=== PATIENT | female | born 1980 | race Two or more races ===

== ENCOUNTER 2016-09-30 05:40 | Inpatient (IN) | payer OTHER ==
[2016-09-30] MEDS ORDERED: SODIUM CHLORIDE 1,000 ML IV STA (06:22)
[2016-09-30] MEDS ORDERED: SODIUM CHLORIDE 0.9% 1000 ML INFUS.BAG IV PRN (06:22)
[2016-09-30] MEDS ORDERED: IBUPROFEN 100 MG/5 ML UNIT DOSE CUPS GT ONE (06:25)
[2016-09-30] MEDS ORDERED: ALBUTEROL SO4 2.5/IPRATROPIUM 0.5 INH SOL 3 ML VIAL.NEB. NEB ONE (06:26)
--- NOTE | 2016-09-30 06:27 | PDOC ---
History of Present Illness - General Chief Complaint: Respiratory Stated Complaint: TACHYCARDIA Time Seen by Provider: 09/30/16 06:18 History Source: Patient - History of Present Illness Initial Comments: 09/30/16 06:22 35 yeAR OLD FEMALE from [facility] c/o fever and tachycardia. pmhx MRCP, tracheostomy, seizures, Chronic lung disease, Past History - Past Medical History Allergies/Adverse Reactions: Allergies Allergy/AdvReac Type Severity Reaction Status Date / Time No Known Allergies Allergy Verified 09/30/16 05:53 Home Medications: Ambulatory Orders Acetaminophen Oral Solution [Tylenol 160mg/5mL Oral Solution -] 650 mg GT Q4H PRN 05/11/13 Albuterol 0.083% Nebulizer Renu [Ventolin 0.083% Nebulizer Soln -] 1 neb NEB Q6H 05/11/13 Budesonide [Pulmicort 0.5 mg Nebulizer -] 1 neb IH BID 05/11/13 Diazepam [Valium] 2 mg GT BID 05/11/13 Heparin Sodium,Porcine/Pf [Heparin Sod 5,000 Unit/ 0.5 ml] 5,000 unit SQ TID 08/19 Insulin (LOG) Aspart [NovoLOG -] 0 units SQ TID PRN 05/11/13 Lamotrigine [Lamictal] 25 mg GT BID 05/11/13 Polyethylene Glycol 3350 [Miralax 255 gm Btl -] 17 gm GT DAILY 05/11/13 Potassium Chloride Oral Soln [KCl Oral Solution -] 20 meq GT DAILY 05/11/13 Ranitidine Oral Solution [Zantac Oral Solution -] 150 mg GT BID 05/11/13 Senna Oral Solution - [Senokot Oral Solution -] 8.8 mg GT HS 05/11/13 Valproate Sodium Liquid [Depakene Oral Solution -] 500 mg GT HS 05/11/13 Valproate Sodium [Depakene -] 250 mg GT DAILY 05/11/13 Insulin (Levemir) [Levemir Flexpen -] 28 units SQ HS 01/08/14 Multivitamins [Multivit ([facility] Formulary)] 5 ml GT DAILY 01/08/14 Nut.tx.gluc.intoler,Lac-Fr,Soy [Glucerna 1 Matteo] 640 ml GT DAILY 01/08/14 Insulin (Levemir) [Levemir Vial] 40 units SQ ACBK ml 03/04/16 Levofloxacin [Levaquin -] 500 mg PEG DAILY #4 tablet 03/04/16 Levothyroxine [Synthroid -] 37.5 mcg GT DAILY@0700 tablet 03/04/16 Anemia: Yes Asthma: No Cancer: No Cardiac Disorders: No CVA: (hx mental retardation, muscle contractions) COPD: Yes (CHRONIC AIRWAY FAILURE, OBSTRUCTIVE HYDROCEPHALUS) CHF: No Dementia: No Diabetes: Yes GI Disorders: No Disorders: No HTN: No Hypercholesterolemia: No Liver Disease: No Suicide Attempt (Hx): No Seizures: Yes Thyroid Disease: No - Surgical History Abdominal Surgery: Yes Appendectomy: Yes (peg tube) Cardiac Surgery: No Cholecystectomy: No Lung Surgery: No Neurologic Surgery: No Orthopedic Surgery: Yes (left femur fracture repair,ventilator) - Psycho/Social/Smoking Cessation Hx Anxiety: No Suicidal Ideation: No Smoking Status: No Smoking History: Unknown if ever smoked Have you smoked in the past 12 months: No Number of Cigarettes Smoked Daily: 0 Information on smoking cessation initiated: No Hx Alcohol Use: No Drug/Substance Use Hx: No Substance Use Type: None Hx Substance Use Treatment: No Review of Systems - Review of Systems Able to Perform ROS?: Yes Is the patient limited Citizen Of [place] proficient: No Constitutional: Yes: Fever *Physical Exam - Vital Signs Last Vital Signs Temp Pulse Resp BP Pulse Ox 140 H 17 148/93 100 09/30/16 05:53 09/30/16 05:53 09/30/16 05:53 09/30/16 05:53 - Physical Exam General Appearance: Yes: Other Respiratory/Chest: positive: Wheezing (end expiratory wheezing, trach in place) . negative: Accessory Muscle Use Cardiovascular: positive: Regular Rate, Tachycardia Gastrointestinal/Abdominal: positive: Decreased BS, Distended Extremity: positive: Normal Capillary Refill, Normal Inspection, Normal Range of Motion Integumentary: positive: Normal Color, Dry, Warm Neurologic: positive: Alert, Respond to painful stimul ED Treatment Course - LABORATORY CBC & Chemistry Diagram: 09/30/16 06:37 09/30/16 06:37 Progress Note - Progress Note Progress Note: A: r/o Sepsis *DC/Admit/Observation/Transfer Diagnosis at time of Disposition: Sepsis Qualifiers: Sepsis type: sepsis due to unspecified organism Qualified Code(s): A41.9 - Sepsis, unspecified organism - Referrals Referrals: Dillan Celaya MD [Primary Care Provider] -
[2016-09-30 06:42] LABS: BASOPHIL 0.4 % (0-2.0); EOSINOPHIL 0.1 % (0-4.5); MCHC 29.6 g/dl (32.0-36.0); MEAN PLT VOLUME 8.2 fl (7.5-11.1); NEUTROPHILS 86.3 % (42.8-82.8); PLATELET COUNT 350 K/MM3 (134-434); RDW 22.9 % (11.6-15.6); WHITE BLOOD COUNT 14.7 K/mm3 (4.0-10.0)
[2016-09-30] MEDS ORDERED: IBUPROFEN 100 MG/5 ML UNIT DOSE CUPS ONE (06:45)
[2016-09-30 06:57] LABS: INR 1.41 (0.82-1.09); PROTHROMBIN TIME (PATIENT) 15.6 SEC (9.98-11.88)
[2016-09-30 07:00] LABS: ACTIVATED PTT 37.6 SECONDS (26.9-34.4)
[2016-09-30 07:06] LABS: ALBUMIN 2.5 g/dl (3.4-5.0); ANION GAP 11 (8-16); BILIRUBIN,TOTAL 5.1 mg/dL (0.2-1.0); CALCIUM 9.4 mg/dL (8.5-10.1); CO2 29 mmol/L (21-32); COCKROFT - GAULT 114.5885; CREATININE 0.5 mg/dL (0.55-1.02); SGOT/AST 152 U/L (15-37); SGPT/ALT 51 U/L (12-78); TOT PROT 8.1 g/dl (6.4-8.2)
[2016-09-30 07:08] LABS: ALK PHOS 577 U/L (45-117)
[2016-09-30 07:21] LABS: GLUCOSE,RANDOM 410 mg/dL (74-106)
[2016-09-30 07:33] LABS: URINE APPEARANCE CLEAR; URINE BLOOD NEGATIVE (NEGATIVE); URINE COLOR AMBER; URINE GLUCOSE (UA) 3+ (NEGATIVE); URINE KETONE TRACE (NEGATIVE); URINE LEUK ESTERASE NEGATIVE (NEGATIVE); URINE NITRITE NEGATIVE (NEGATIVE); URINE PROTEIN NEGATIVE (NEGATIVE); URINE UROBILINOGEN 4.0 E.U/dl E.U./dl (0.2-1.0)
[2016-09-30] MEDS ORDERED: INSULIN REGULAR HUMAN 100 UNITS/ML *VIAL IVPUSH ONE (07:37)
[2016-09-30] MEDS ORDERED: VANCOMYCIN 1,000 MG in DEXTROSE 5%-WATER - 250 ML IVPB ONE (07:37)
[2016-09-30] MEDS ORDERED: PIPERACILLIN/TAZOB 3.375 GM/50 ML PRE-DOCKED IVPB ONE ×2 (07:39→19:00)
--- NOTE | 2016-09-30 07:49 | PDOC ---
*Physical Exam - Vital Signs Last Vital Signs Temp Pulse Resp BP Pulse Ox 140 H 17 148/93 100 09/30/16 06:02 09/30/16 05:53 09/30/16 05:53 09/30/16 06:02 - Physical Exam Comments: 09/30/16 07:50 Exam limited 2/2 pt's medical condition General Appearance: Yes: Appropriately Dressed. No: Apparent Distress Gastrointestinal/Abdominal: positive: Soft, Guarding, Other (PEG in place to LUQ ). negative: Distended, Mass Integumentary: positive: Dry, Warm ED Treatment Course - LABORATORY CBC & Chemistry Diagram: 09/30/16 06:37 09/30/16 06:37 - ADDITIONAL ORDERS Additional order review: Laboratory Results 09/30/16 09/30/16 09/30/16 06:37 06:37 06:29 INR 1.41 H PTT (Actin FS) 37.6 H Sodium 133 L Potassium 4.3 Chloride 93 L Carbon Dioxide 29 Anion Gap 11 BUN 17 D Creatinine 0.5 L Creat Clearance w eGFR > 60 Random Glucose 410 H* Lactic Acid 1.2 Calcium 9.4 Total Bilirubin 5.1 H D AST 152 H D ALT 51 D Alkaline Phosphatase 577 H D Creatine Kinase 11 L Total Protein 8.1 D Albumin 2.5 L 09/30/16 06:37 RBC 3.51 L MCV 88.0 MCHC 29.6 L RDW 22.9 H D MPV 8.2 Neutrophils % 86.3 H D Lymphocytes % 3.9 L D Monocytes % 9.3 Eosinophils % 0.1 D Basophils % 0.4 D - Medications Given in the ED: ED Medications Discontinued Medications Generic Name Dose Route Start Last Admin Trade Name Saiq PRN Reason Stop Dose Admin Albuterol/Ipratropium 1 amp 09/30/16 06:26 09/30/16 07:22 Duoneb - NEB 09/30/16 06:27 Not Given ONCE ONE Sodium Chloride 1,000 mls @ 1,000 mls/hr 09/30/16 06:22 09/30/16 06:50 Normal Saline - IV 09/30/16 07:21 1,000 mls/hr ASDIR STA Administration Ibuprofen 450 mg 09/30/16 06:25 09/30/16 06:50 Motrin Oral Suspension - GT 09/30/16 06:26 450 mg ONCE ONE Administration Medical Decision Making - Medical Decision Making 09/30/16 07:44 Received S.O at 7am this am Pt is a 35 yo F, resident at [facility], profound MR, CP, seizures, chronic resp failure, trach dependent, PEG, IDDM, sepsis, p/w fever of unknown origin. Has low grade temp and tachycardia in ED. Early in w/u w/ labs pending. Labs and broad spectrum abx in progress. To be admitted 09/30/16 07:50 Leukocytosis of 14 w/ normal lactate. Hyperglycemia of >400. IVF and insulin in progress. HR currently 130 w/ sinus tach on EKG. Ua and CXR in progress. Will contact PMD and admit 09/30/[address] Rudd as per d/w Dr Celaya *DC/Admit/Observation/Transfer Diagnosis at time of Disposition: Hyperglycemia Sepsis Qualifiers: Sepsis type: sepsis due to unspecified organism Qualified Code(s): A41.9 - Sepsis, unspecified organism - Discharge Dispostion Condition at time of disposition: Fair Admit: Yes - Referrals Referrals: Dillan Celaya MD [Primary Care Provider] - - Patient Instructions - Post Discharge Activity
[2016-09-30] MEDS ORDERED: INSULIN REGULAR HUMAN 100 UNITS/ML *VIAL ONE (07:58)
[2016-09-30 08:10] LABS: TROPONIN I < 0.03 ng/ml (0.00-0.05)
[2016-09-30] MEDS ORDERED: PIPERACILLIN/TAZOB 3.375 GM 50 ML IVPB ONE (08:10)
--- NOTE | 2016-09-30 09:15 | EKG ---
Test Reason : Blood Pressure : / mmHG Vent. Rate : 140 BPM Atrial Rate : 140 BPM P-R Int : 126 ms QRS Dur : 080 ms QT Int : 284 ms P-R-T Axes : 031 057 022 degrees QTc Int : 433 ms SINUS TACHYCARDIA NONSPECIFIC T WAVE ABNORMALITY ABNORMAL ECG WHEN COMPARED WITH ECG OF 25-FEB-2016 13:13, NONSPECIFIC T WAVE ABNORMALITY, IMPROVED IN LATERAL LEADS Confirmed by PASTOR FERRARA MD ([id number]) on 09/30/2016 9:14:58 AM Referred By: Confirmed By:PASTOR FERRARA MD
--- NOTE | 2016-09-30 10:41 | HP ---
Admitting History and Physical - Primary Care Physician PCP: Max Rudd - Admission Chief Complaint: Fever of unknown origin History of Present Illness: Ms. Carrillo is ventilator dependent 35 yo female who is a resident of [facility] . She came in to the ER for fever that started 1 day ago. 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 No: Multiple Sclerosis Pulmonary: Yes: O2 Dependent, Previously Intubated, Other (respiratory failure) Gastrointestinal: Yes: Constipation, Other (H/O PSEUDOMEGA-COLON INTERMITTANTLY REQUIRING RECTAL TUBE) Heme/Onc: Yes: Anemia (CHRONIC) Psych: Yes: Other (MENTAL RETARDATION) Endocrine: Yes: Diabetes Mellitus - Past Surgical History Past Surgical History: Yes: AICD - Smoking History Smoking history: Unknown if ever smoked Have you smoked in the past 12 months: No Aproximately how many cigarettes per day: 0 - Alcohol/Substance Use Hx Alcohol Use: No - Social History Usual Living Arrangement: Yes: Half-Way Home Medications - Allergies Allergies/Adverse Reactions: Allergies Allergy/AdvReac Type Severity Reaction Status Date / Time No Known Allergies Allergy Verified 09/30/16 05:53 - Home Medications Home Medications: Ambulatory Orders Acetaminophen [Tylenol] 650 mg GT Q6H PRN 09/30/16 Ascorbate Calcium [Vitamin C] 500 mg GT DAILY 09/30/16 Budesonide/Formeterol Fumarate [SYMBICORT 160/4.5mcg -] 1 inh PO BID 09/30/16 Diazepam 2 mg GT BID 09/30/16 Famotidine 20 mg GT HS 09/30/16 Heparin - 5,000 unit SQ BID 09/30/16 Hydrocortisone 1% Cream [Hytone 1% Cream -] 1 applic TP BID 09/30/16 Insulin (Levemir) [Levemir Flexpen -] 36 units SQ HS 09/30/16 Insulin (Levemir) [Levemir Vial] 40 unit SQ AM 09/30/16 Insulin Lispro [Humalog] 0 unit SQ ASDIR 09/30/16 Ipratropium/Albuterol Sulfate [Iprat-Albut 0.5-3(2.5) mg/3 ml] 3 ml IH QID 09/30 Lamotrigine 25 mg GT BID 09/30/16 Levothyroxine [Synthroid -] 12.5 mcg PO DAILY 09/30/16 Levothyroxine [Synthroid -] 25 mcg PO DAILY 09/30/16 Petrolatum,White/Lanolin [Vitamin A & D Ointment] 454 gm TP QID 09/30/16 Polyethylene Glycol 3350 [Gavilax] 17 gm GT DAILY 09/30/16 Potassium Chloride [Potassium Chloride Oral Liquid] 20 meq GT DAILY 09/30/16 Valproic Acid (As Sodium Salt) [Valproic Acid] 5 ml GT AM 09/30/16 Valproic Acid (As Sodium Salt) [Valproic Acid] 250 mg GT HS 09/30/16 Family Disease History - Family Disease History Family History: Unable to Obtain Review of Systems Findings/Remarks: Fever - Review of Systems Constitutional: reports: Fever Physical Examination Vital Signs: Vital Signs Temperature Pulse Rate 140 H 09/30/16 06:02 Respiratory Rate 15 09/30/16 08:43 Blood Pressure 148/93 09/30/16 05:53 O2 Sat by Pulse Oximetry (%) 100 09/30/16 06:02 Constitutional: Yes: Mild Distress Cardiovascular: Yes: Tachycardia Respiratory: Yes: Tachypnea Gastrointestinal: Yes: Normal Bowel Sounds Extremities: Yes: WNL Integumentary: Yes: WNL, Other (Tracheotomy and PEG) Wound/Incision: Yes: Clean/Dry Problem List - Problems (1) Hyperglycemia Code(s): R73.9 - HYPERGLYCEMIA, UNSPECIFIED (2) Sepsis Assessment/Plan: Pending urine and blood cultures, normal LA. Code(s): A41.9 - SEPSIS, UNSPECIFIED ORGANISM Qualifiers: Sepsis type: sepsis due to unspecified organism Qualified Code(s): A41.9 - Sepsis, unspecified organism (3) Cerebral palsy Code(s): G80.9 - CEREBRAL PALSY, UNSPECIFIED Qualifiers: Cerebral palsy type: unspecified type Qualified Code(s): G80.9 - Cerebral palsy, unspecified (4) Chronic respiratory failure Code(s): J96.10 - CHRONIC RESPIRATORY FAILURE, UNSP W HYPOXIA OR HYPERCAPNIA (5) Fever Assessment/Plan: Urine and blood cultures Tylenol for fever over 100.0 ID consult Code(s): R50.9 - FEVER, UNSPECIFIED Assessment/Plan Admit to Med Surg Urine and Blood cultures IV abx Hydration Pending CXR ID consult
[2016-09-30] MEDS ORDERED: ACETAMINOPHEN 1000 MG/100 ML VIAL (NON FORMULARY) IVPB ONE (10:45)
[2016-09-30] MEDS ORDERED: VANCOMYCIN 1 GRAM (PRE-DOCKED) 250 ML IVPB ONE (11:00)
[2016-09-30 11:59] LABS: ANISOCYTOSIS 2+; HYPOCHROMIA 1+; MICROCYTOSIS 2+; TARGET CELLS FEW
[2016-09-30] MEDS: SODIUM CHLORIDE 1,000 ML IV SCH (15:47)
[2016-09-30 16:43] VITALS: BMI 51.2
[2016-09-30] MEDS ORDERED: ACETAMINOPHEN 650 MG/20.3 ML ORAL SOLUTION (CUPS) GT PRN (17:55)
[2016-09-30] MEDS ORDERED: diazePAM 2 MG TABLET PO SCH (22:00)
[2016-09-30] MEDS ORDERED: HEPARIN NA (PORCINE) 5,000 UNITS/ML 1ML VIAL SQ SCH (22:00)
[2016-09-30] MEDS ORDERED: INSULIN DETEMIR 100 UNITS/ML MDV SQ SCH (22:00)
[2016-09-30] MEDS: VALPROATE SODIUM 250 MG/5 ML UNIT DOSE CUP GT SCH (22:33)
[2016-09-30] MEDS: HEPARIN NA (PORCINE) 5,000 UNITS/ML 1ML VIAL SQ SCH (22:33)
[2016-09-30] MEDS: lamoTRIgine 25 MG TABLET NR SCH (22:33)
[2016-09-30] MEDS: diazePAM 2 MG TABLET GT SCH (22:33)
[2016-09-30] MEDS: RANITIDINE HCL 150 MG/10 ML UNIT-DOSE CUP GT SCH (22:33)
[2016-09-30] MEDS: BUDESONIDE/FORMETEROL FUMARATE 160/4.5 mcg INHALER IH SCH (22:34)
[2016-09-30] MEDS: VITAMINS A AND D TOPICAL OINTMENT 60 GM TUBE TP SCH (22:35)
[2016-09-30] MEDS: ALBUTEROL SO4 2.5/IPRATROPIUM 0.5 INH SOL 3 ML VIAL.NEB. NEB SCH (23:15)
[2016-09-30] MEDS ORDERED: VANCOMYCIN 1 GRAM (PRE-DOCKED) 250 ML IVPB SCH (23:15)
[2016-10-01] MEDS ORDERED: PIPERACILLIN/TAZOB 3.375 GM 50 ML IVPB SCH (02:00)
[2016-10-01] MEDS: INSULIN SLIDING SCALE (NOVOLOG) 1 VIAL SQ SCH ×4 (06:02→22:36)
[2016-10-01] MEDS: VALPROATE SODIUM 250 MG/5 ML UNIT DOSE CUP GT SCH ×2 (06:02→22:33)
[2016-10-01] MEDS: ALBUTEROL SO4 2.5/IPRATROPIUM 0.5 INH SOL 3 ML VIAL.NEB. NEB SCH ×4 (06:19→23:11)
[2016-10-01 07:46] LABS: ARTERIAL BLOOD GAS BASE EXCESS 1.4 meq/l (-2-2); ARTERIAL BLOOD GAS HCO3 25.2 meq/L (22-26); ARTERIAL BLOOD GAS pH 7.44 (7.35-7.45)
[2016-10-01 07:47] LABS: ALLENS TEST POSITIVE; ART PUNCT SITE RIGHT RADIAL; LPM/O2% 35%; PT. ON O2? YES; TYPE OF O2 MECH VENT
[2016-10-01 07:48] LABS: MECH. VENT. Y; VENT RATE 14; VT/PRESS 350
--- NOTE | 2016-10-01 08:29 | PN ---
Progress Note, Physician Chief Complaint: ID Full note dictaed Asked to see for management of Sepsis - Current Medication List Current Medications: Active Medications Acetaminophen (Tylenol Oral Solution -) 650 mg GT Q6H PRN PRN Reason: FEVER OR PAIN Albuterol/Ipratropium (Duoneb -) 1 amp NEB QIDR [facility] Last Admin: 10/01/16 06:19 Dose: 1 amp Ascorbic Acid (Vitamin C Oral Solution -) 500 mg GT DAILY [facility] Budesonide/Formoterol Fumarate (Symbicort 160/4.5mcg -) 2 puff IH BID [facility] Last Admin: 09/30/16 22:34 Dose: Not Given Diazepam (Valium -) 2 mg GT BID [facility] Last Admin: 09/30/16 22:33 Dose: 2 mg Heparin Sodium (Porcine) (Heparin -) 5,000 unit SQ BID [facility] Last Admin: 09/30/16 22:33 Dose: 5,000 unit Sodium Chloride (Normal Saline -) 1,000 mls @ 75 mls/hr IV ASDIR [facility] Last Admin: 09/30/16 15:47 Dose: 75 mls/hr Vancomycin HCl (Vancomycin (Pre-Docked)) 250 mls @ 166.667 mls/hr IVPB Q12H [facility] PRN Reason: Protocol Last Admin: 10/01/16 00:00 Dose: 166.667 mls/hr Piperacillin Sod/Tazobactam Sod (Zosyn 3.375gm Ivpb (Pre-Docked)) 50 mls @ 100 mls/hr IVPB Q8H-IV [facility] PRN Reason: Protocol Last Admin: 10/01/16 01:23 Dose: 100 mls/hr Insulin Aspart (Novolog Vial Sliding Scale -) 1 vial SQ TIDAC [facility] PRN Reason: Protocol Last Admin: 10/01/16 06:02 Dose: 5 units Insulin Detemir (Levemir Vial) 36 units SQ HS [facility] Last Admin: 09/30/16 22:34 Dose: 36 units Lamotrigine (Lamictal -) 25 mg NR BID [facility] Last Admin: 09/30/16 22:33 Dose: 25 mg Levothyroxine Sodium (Synthroid -) 25 mcg GT DAILY [facility] Polyethylene Glycol (Miralax (For Daily Use) -) 17 gm GT DAILY [facility] Potassium Chloride (Potassium Chloride Oral Liquid) 20 meq GT DAILY [facility] Ranitidine HCl (Zantac Oral Solution -) 150 mg GT HS [facility] Last Admin: 09/30/16 22:33 Dose: 150 mg Sodium Chloride (Normal Saline -) 100 ml IV Q20M PRN PRN Reason: MAP<65mm Hg OR SBP <90 Valproate Sodium (Depakene -) 250 mg GT HS [facility] Last Admin: 09/30/16 22:33 Dose: 250 mg Valproate Sodium (Depakene -) 250 mg GT AM [facility] Last Admin: 10/01/16 06:02 Dose: 250 mg Vitamin A/Vitamin D (Vitamin A & D Top Oint -) 1 applic TP QID [facility] Last Admin: 09/30/16 22:35 Dose: 1 applic - Objective Vital Signs: Vital Signs Temperature 98.3 F 10/01/16 05:46 Pulse Rate 104 H 10/01/16 05:46 Respiratory Rate 20 10/01/16 06:33 Blood Pressure 108/63 10/01/16 05:46 O2 Sat by Pulse Oximetry (%) 100 10/01/16 00:43 Neck: Yes: Other (Trach) Cardiovascular: Yes: Tachycardia, S1, S2. No: Murmur Respiratory: Yes: WNL, Regular, CTA Bilaterally Gastrointestinal: Yes: Soft, Distention, Other (PEG) Extremities: Yes: Other (Contracted) Integumentary: Yes: Jaundice Labs: INR, PTT INR 1.41 (0.82-1.09) H 09/30/16 06:37 Problem List - Problems (1) Sepsis Code(s): A41.9 - SEPSIS, UNSPECIFIED ORGANISM Qualifiers: Sepsis type: sepsis due to unspecified organism Qualified Code(s): A41.9 - Sepsis, unspecified organism (2) Diabetes Code(s): E11.9 - TYPE 2 DIABETES MELLITUS WITHOUT COMPLICATIONS (3) Cholangitis Code(s): K83.0 - CHOLANGITIS Assessment/Plan Microbiology 09/30/16 06:37 Blood - Peripheral Venous Blood Culture - Preliminary NO GROWTH OBTAINED AFTER 24 HOURS, INCUBATION TO CONTINUE FOR 4 DAYS. 09/30/16 06:37 Blood - Peripheral Venous Blood Culture - Preliminary Lactose Fermenting Neg Bacilli Laboratory Tests 09/30/16 09/30/16 09/30/16 06:37 06:37 06:37 WBC 14.7 H D Hgb 9.1 L Hct 30.9 L Plt Count 350 D Neutrophils % 86.3 H D Lymphocytes % 3.9 L D INR 1.41 H ABG pH ABG pCO2 at Pt Temp ABG pO2 at Pt Temp Oxygen Flow Rate BUN 17 D Random Glucose 410 H* Total Bilirubin 5.1 H D AST 152 H D ALT 51 D Alkaline Phosphatase 577 H D Ur Leukocyte Esterase 09/30/16 10/01/16 07:23 07:25 WBC Hgb Hct Plt Count Neutrophils % Lymphocytes % INR ABG pH 7.44 ABG pCO2 at Pt Temp 37.9 ABG pO2 at Pt Temp 136.0 H Oxygen Flow Rate 35% BUN Random Glucose Total Bilirubin AST ALT Alkaline Phosphatase Ur Leukocyte Esterase Negative Assessment Sepsis syndrome from biliary tract Cholangitis with obstruction Gram negative bacteremia Fatty liver Plan Continue Zosyn as ordered 3.375gr q 6 Sonogram of GB liver to start GI evaluation Stop Jed Mak MD
[2016-10-01] MEDS ORDERED: PT OWN MED DRAWER 7, Y5N ONE (09:55)
[2016-10-01] MEDS: LEVOTHYROXINE NA 25 MCG TABLET (FP) GT SCH (09:58)
[2016-10-01] MEDS: BUDESONIDE/FORMETEROL FUMARATE 160/4.5 mcg INHALER IH SCH ×2 (09:58→22:31)
[2016-10-01] MEDS: POLYETHYLENE GLYCOL 3350 119 GM BTL GT SCH (09:58)
[2016-10-01] MEDS: diazePAM 2 MG TABLET GT SCH ×2 (09:58→22:31)
[2016-10-01] MEDS: POTASSIUM CHLORIDE ORAL LIQUID 20 MEQ/15 ML GT SCH (09:58)
[2016-10-01] MEDS: PIPERACILLIN/TAZOB 3.375 GM 50 ML IVPB SCH ×3 (09:59→22:30)
[2016-10-01] MEDS: HEPARIN NA (PORCINE) 5,000 UNITS/ML 1ML VIAL SQ SCH ×2 (09:59→22:33)
[2016-10-01] MEDS: VITAMINS A AND D TOPICAL OINTMENT 60 GM TUBE TP SCH ×3 (10:00→22:37)
[2016-10-01] MEDS: ASCORBIC ACID 500 MG/5 ML UNIT DOSE CUP GT SCH (10:01)
[2016-10-01] MEDS: SODIUM CHLORIDE 1,000 ML IV SCH (10:02)
--- NOTE | 2016-10-01 10:51 | CONS ---
DATE OF CONSULTATION: DATE OF DICTATION: 10/01/2016 HISTORY OF PRESENT ILLNESS: This is a 35-year-old profoundly mentally impaired patient from functional quadriplegia and cerebral palsy admitted from the nursing facility for evaluation of sepsis and fever which started the day prior to admission. She is chronically vented through a tracheostomy and has a history of diabetes mellitus. After a discussion with the nursing staff last night, I recommended that she be empirically treated with vancomycin and Zosyn pending formal consultation. This morning, her blood cultures are positive for gram-negative rods. The patient can offer no history. CURRENT MEDICATIONS: Include diazepam, insulin, lamotrigine, , valproic acid. ALLERGIES: None known. SOCIAL HISTORY: Resident of a long-term care facility. Obviously, no history of smoking or alcohol, substance abuse. FAMILY HISTORY: Unable to obtain. REVIEW OF SYSTEMS:Respiratory: Tachypnea with chronic ventilator dependency. Tracheostomy. Cardiac: No history of congenital heart disease, heart murmur, syncope, palpitations. Gastrointestinal: PEG feeding tube. No abdominal pain obvious. No vomiting, diarrhea, melena, blood per rectum, hematemesis. Genitourinary: Incontinent of urine. No gross hematuria noted. PHYSICAL EXAMINATION:Vital Signs: On admission, the pulse is 140, respiratory rate 15, blood pressure 148/93, O2 saturation 100%. Neck: With tracheostomy. Lungs: Bilateral rhonchi. Heart: S1, S2. Tachycardic. No obvious murmur. Abdomen: Soft, nontender, without hepatosplenomegaly. The abdomen was distended. No obvious tenderness. PEG feeding tube in place. No rebound. Extremities: No clubbing, cyanosis, or edema. LABORATORY DATA: The white count was 15,000, hemoglobin 9.1, platelets of 350, 86% polys, 4 lymphs, 9 monocytes. INR 1.41. AB.44, 40, PO2 of 136, 35% oxygen flow. The BUN was 17, creatinine 0.5, glucose 410, bilirubin 5.1, AST 151, ALT 51, alkaline phosphatase 577. Urinalysis was negative for leukocyte esterase. Chest x-ray was reviewed, shows some possible vascular congestion but no discrete infiltrate. Additionally, bilateral ventriculoperitoneal shunt seen and thoracic orthopedic hardware. ASSESSMENT: 1. Sepsis syndrome, biliary source with obstructive jaundice/cholangitis. 2. Gram-negative kourtney bacteremia. 3. Chronic ventilatory dependency. 4. Insulin-dependent diabetes mellitus. 5. History of fatty liver and contracted gallbladder on previous sonogram. PLAN: Continue Zosyn 3.375 g q.6 hours. Stat sonogram of the gallbladder and liver. GI evaluation. Discontinue vancomycin. GI Consult needed SUNITA VIEIRA M.D. AUSTYN/[id number] MTDD
--- NOTE | 2016-10-01 11:12 | PN ---
Progress Note, Physician History of Present Illness: JAUNDICE IN BED ON VENT - Current Medication List Current Medications: Active Medications Acetaminophen (Tylenol Oral Solution -) 650 mg GT Q6H PRN PRN Reason: FEVER OR PAIN Albuterol/Ipratropium (Duoneb -) 1 amp NEB QIDR [facility] Last Admin: 10/01/16 06:19 Dose: 1 amp Ascorbic Acid (Vitamin C Oral Solution -) 500 mg GT DAILY [facility] Last Admin: 10/01/16 10:01 Dose: 500 mg Budesonide/Formoterol Fumarate (Symbicort 160/4.5mcg -) 2 puff IH BID [facility] Last Admin: 10/01/16 09:58 Dose: Not Given Diazepam (Valium -) 2 mg GT BID [facility] Last Admin: 10/01/16 09:58 Dose: 2 mg Heparin Sodium (Porcine) (Heparin -) 5,000 unit SQ BID [facility] Last Admin: 10/01/16 09:59 Dose: 5,000 unit Sodium Chloride (Normal Saline -) 1,000 mls @ 75 mls/hr IV ASDIR [facility] Last Admin: 10/01/16 10:02 Dose: 75 mls/hr Piperacillin Sod/Tazobactam Sod (Zosyn 3.375gm Ivpb (Pre-Docked)) 50 mls @ 100 mls/hr IVPB Q6H-IV [facility] PRN Reason: Protocol Last Admin: 10/01/16 09:59 Dose: 100 mls/hr Lamotrigine (Lamictal -) 25 mg NR BID [facility] Last Admin: 09/30/16 22:33 Dose: 25 mg Levothyroxine Sodium (Synthroid -) 25 mcg GT DAILY [facility] Last Admin: 10/01/16 09:58 Dose: 25 mcg Polyethylene Glycol (Miralax (For Daily Use) -) 17 gm GT DAILY [facility] Last Admin: 10/01/16 09:58 Dose: 17 grams Potassium Chloride (Potassium Chloride Oral Liquid) 20 meq GT DAILY [facility] Last Admin: 10/01/16 09:58 Dose: 20 meq Ranitidine HCl (Zantac Oral Solution -) 150 mg GT HS [facility] Last Admin: 09/30/16 22:33 Dose: 150 mg Sodium Chloride (Normal Saline -) 100 ml IV Q20M PRN PRN Reason: MAP<65mm Hg OR SBP <90 Valproate Sodium (Depakene -) 250 mg GT HS [facility] Last Admin: 09/30/16 22:33 Dose: 250 mg Valproate Sodium (Depakene -) 250 mg GT AM [facility] Last Admin: 10/01/16 06:02 Dose: 250 mg Vitamin A/Vitamin D (Vitamin A & D Top Oint -) 1 applic TP QID [facility] Last Admin: 09/30/16 22:35 Dose: 1 applic - Objective Vital Signs: Vital Signs Temperature 98.3 F 10/01/16 05:46 Pulse Rate 104 H 10/01/16 05:46 Respiratory Rate 14 10/01/16 10:51 Blood Pressure 108/63 10/01/16 05:46 O2 Sat by Pulse Oximetry (%) 100 10/01/16 00:43 Cardiovascular: Yes: Murmur, S1, S2 Respiratory: Yes: Mechanically Ventilated Gastrointestinal: Yes: Distention Integumentary: Yes: Jaundice Neurological: Yes: Pre-Existing Deficit Labs: INR, PTT INR 1.41 (0.82-1.09) H 09/30/16 06:37 Problem List - Problems (1) Cholangitis Assessment/Plan: IV ABX PER ID AWAIT IMAGING--CT/US GI CONSULT Code(s): K83.0 - CHOLANGITIS (2) Sepsis Code(s): A41.9 - SEPSIS, UNSPECIFIED ORGANISM Qualifiers: Sepsis type: sepsis due to unspecified organism Qualified Code(s): A41.9 - Sepsis, unspecified organism (3) Cerebral palsy Code(s): G80.9 - CEREBRAL PALSY, UNSPECIFIED Qualifiers: Cerebral palsy type: unspecified type Qualified Code(s): G80.9 - Cerebral palsy, unspecified (4) Chronic respiratory failure Assessment/Plan: VENT SETTING PER PULM Code(s): J96.10 - CHRONIC RESPIRATORY FAILURE, UNSP W HYPOXIA OR HYPERCAPNIA (5) Jaundice Assessment/Plan: F/U JAMILA--LAST ONE 5.1 W/U ORDERED Code(s): R17 - UNSPECIFIED JAUNDICE
[2016-10-01 11:28] LABS: C-REACTIVE PROTEIN 35.6 MG/DL (0.00-0.3)
[2016-10-01] MEDS: SODIUM CHLORIDE 0.45%/POT 1,000 ML IV SCH (12:29)
[2016-10-01] MEDS: lamoTRIgine 25 MG TABLET NR SCH ×2 (12:46→22:31)
[2016-10-01 12:50] LABS: ALBUMIN 1.8 g/dl (3.4-5.0); AMYLASE 40 U/L (25-115); ANION GAP 12 (8-16); CALCIUM 8.5 mg/dL (8.5-10.1); CO2 25 mmol/L (21-32); CREATININE 0.6 mg/dL (0.55-1.02); GLUCOSE,RANDOM 262 mg/dL (74-106); SGOT/AST 179 U/L (15-37); SGPT/ALT 60 U/L (12-78); TOT PROT 5.9 g/dl (6.4-8.2)
[2016-10-01 12:59] LABS: ALK PHOS 453 U/L (45-117)
--- NOTE | 2016-10-01 13:01 | CON.PULM ---
Consult Consult Specialty:: PULM/CCM Referred by:: CLAU Reason for Consultation:: Vent dependent - History of Present Illness Chief Complaint: fever History of Present Illness: 35 F, well known to our service. Chronic Respiratory Failure, history of MRCP, Seizures, and Chronic lung disease. Admitted via the ER for possible sepsis. Source suspected the biliary tract. CXR: Chronic changes with no acute process. 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 No: Multiple Sclerosis Pulmonary: Yes: O2 Dependent, Previously Intubated, Other (respiratory failure) Gastrointestinal: Yes: Constipation, Other (H/O PSEUDOMEGA-COLON INTERMITTANTLY REQUIRING RECTAL TUBE) ...LMP: 09/05/16 ...: No Psych: Yes: Other (MENTAL RETARDATION) Endocrine: Yes: Diabetes Mellitus - Past Surgical History Past Surgical History: Yes: AICD - Alcohol/Substance Use Hx Alcohol Use: No - Smoking History Smoking history: Unknown if ever smoked Have you smoked in the past 12 months: No Aproximately how many cigarettes per day: 0 - Social History Usual Living Arrangement: Alf Home Medications - Allergies Allergies/Adverse Reactions: Allergies Allergy/AdvReac Type Severity Reaction Status Date / Time No Known Allergies Allergy Verified 09/30/16 05:53 - Home Medications Home Medications: Ambulatory Orders Acetaminophen [Tylenol] 650 mg GT Q6H PRN 09/30/16 Ascorbate Calcium [Vitamin C] 500 mg GT DAILY 09/30/16 Budesonide/Formeterol Fumarate [SYMBICORT 160/4.5mcg -] 1 inh PO BID 09/30/16 Diazepam 2 mg GT BID 09/30/16 Famotidine 20 mg GT HS 09/30/16 Heparin - 5,000 unit SQ BID 09/30/16 Hydrocortisone 1% Cream [Hytone 1% Cream -] 1 applic TP BID 09/30/16 Insulin (Levemir) [Levemir Flexpen -] 36 units SQ HS 09/30/16 Insulin (Levemir) [Levemir Vial] 40 unit SQ AM 09/30/16 Insulin Lispro [Humalog] 0 unit SQ ASDIR 09/30/16 Ipratropium/Albuterol Sulfate [Iprat-Albut 0.5-3(2.5) mg/3 ml] 3 ml IH QID 09/30 Lamotrigine 25 mg GT BID 09/30/16 Levothyroxine [Synthroid -] 12.5 mcg PO DAILY 09/30/16 Levothyroxine [Synthroid -] 25 mcg PO DAILY 09/30/16 Petrolatum,White/Lanolin [Vitamin A & D Ointment] 454 gm TP QID 09/30/16 Polyethylene Glycol 3350 [Gavilax] 17 gm GT DAILY 09/30/16 Potassium Chloride [Potassium Chloride Oral Liquid] 20 meq GT DAILY 09/30/16 Valproic Acid (As Sodium Salt) [Valproic Acid] 5 ml GT AM 09/30/16 Valproic Acid (As Sodium Salt) [Valproic Acid] 250 mg GT HS 09/30/16 Review of Systems Unable to obtain ROS, reason: not able to provide Physical Exam Vital Sings: Vital Signs Temperature 98.3 F 10/01/16 05:46 Pulse Rate 104 H 10/01/16 05:46 Respiratory Rate 14 10/01/16 10:51 Blood Pressure 108/63 10/01/16 05:46 O2 Sat by Pulse Oximetry (%) 100 10/01/16 00:43 Constitutional: Yes: No Distress Eyes: Yes: Conjunctiva Clear HENT: Yes: Atraumatic Neck: Yes: Other (Trached) Cardiovascular: Yes: Regular Rate and Rhythm Respiratory: Yes: Mechanically Ventilated, Rhonchi. No: Accessory Muscle Use, Rales, Stridor, Tachypnea, Wheezes ...Clubbing: No Gastrointestinal: Yes: Normal Bowel Sounds, Soft Extremities: Yes: Shortened. No: Cool, Cyanosis Edema: No Peripheral Pulses WNL: Yes Labs: ABG Results ABG pH 7.44 (7.35-7.45) 10/01/16 07:25 ABG pCO2 at Pt Temp 37.9 mmHg (35-45) 10/01/16 07:25 ABG pO2 at Pt Temp 136.0 mmHg (80-100) H 10/01/16 07:25 ABG HCO3 25.2 meq/L (22-26) 10/01/16 07:25 ABG O2 Sat (Measured) 100.0 % (90-98.9) H* 10/01/16 07:25 ABG O2 Content 8.2 % vol (15-22) L* 10/01/16 07:25 ABG Base Excess 1.4 meq/l (-2-2) 10/01/16 07:25 Imaging - Results Chest X-ray: Report Reviewed, Image Reviewed Problem List - Problems (1) Cholangitis Code(s): K83.0 - CHOLANGITIS (2) Hyperglycemia Code(s): R73.9 - HYPERGLYCEMIA, UNSPECIFIED (3) Jaundice Code(s): R17 - UNSPECIFIED JAUNDICE (4) Sepsis Code(s): A41.9 - SEPSIS, UNSPECIFIED ORGANISM Qualifiers: Sepsis type: sepsis due to unspecified organism Qualified Code(s): A41.9 - Sepsis, unspecified organism (5) Anemia Code(s): D64.9 - ANEMIA, UNSPECIFIED (6) Cerebral palsy Code(s): G80.9 - CEREBRAL PALSY, UNSPECIFIED Qualifiers: Cerebral palsy type: unspecified type Qualified Code(s): G80.9 - Cerebral palsy, unspecified (7) Chronic respiratory failure Code(s): J96.10 - CHRONIC RESPIRATORY FAILURE, UNSP W HYPOXIA OR HYPERCAPNIA (8) Dehydration Code(s): E86.0 - DEHYDRATION (9) Hypothyroid Code(s): E03.9 - HYPOTHYROIDISM, UNSPECIFIED (10) Positive blood cultures Code(s): R78.81 - BACTEREMIA (11) Respirator dependence Code(s): Z99.11 - DEPENDENCE ON RESPIRATOR [VENTILATOR] STATUS Assessment/Plan AC Mode of vent Lower FiO2 ABX Per ID IVF not a candidate for wean Will follow Thank you. Dr Martin
[2016-10-01 13:24] LABS: BILIRUBIN,TOTAL 15.9 mg/dL (0.2-1.0)
--- NOTE | 2016-10-01 13:24 | CON.GI ---
Consult Consult Specialty:: GI Referred by:: Dr Rudd Reason for Consultation:: biliary sepsis - History of Present Illness Chief Complaint: jaundice and abdominal distention History of Present Illness: 35 F with CP and profound MR, chronic vent and non verbal. She appears to be microcephalic. 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 No: Multiple Sclerosis Pulmonary: Yes: O2 Dependent, Previously Intubated, Other (respiratory failure) Gastrointestinal: Yes: Constipation, Other (H/O PSEUDOMEGA-COLON INTERMITTANTLY REQUIRING RECTAL TUBE) ...LMP: 09/05/16 ...: No Psych: Yes: Other (MENTAL RETARDATION) Endocrine: Yes: Diabetes Mellitus - Past Surgical History Past Surgical History: Yes: AICD - Alcohol/Substance Use Hx Alcohol Use: No - Smoking History Smoking history: Unknown if ever smoked Have you smoked in the past 12 months: No Aproximately how many cigarettes per day: 0 - Social History Usual Living Arrangement: Long-Term Home Medications - Allergies Allergies/Adverse Reactions: Allergies Allergy/AdvReac Type Severity Reaction Status Date / Time No Known Allergies Allergy Verified 09/30/16 05:53 - Home Medications Home Medications: Ambulatory Orders Acetaminophen [Tylenol] 650 mg GT Q6H PRN 09/30/16 Ascorbate Calcium [Vitamin C] 500 mg GT DAILY 09/30/16 Budesonide/Formeterol Fumarate [SYMBICORT 160/4.5mcg -] 1 inh PO BID 09/30/16 Diazepam 2 mg GT BID 09/30/16 Famotidine 20 mg GT HS 09/30/16 Heparin - 5,000 unit SQ BID 09/30/16 Hydrocortisone 1% Cream [Hytone 1% Cream -] 1 applic TP BID 09/30/16 Insulin (Levemir) [Levemir Flexpen -] 36 units SQ HS 09/30/16 Insulin (Levemir) [Levemir Vial] 40 unit SQ AM 09/30/16 Insulin Lispro [Humalog] 0 unit SQ ASDIR 09/30/16 Ipratropium/Albuterol Sulfate [Iprat-Albut 0.5-3(2.5) mg/3 ml] 3 ml IH QID 09/30 Lamotrigine 25 mg GT BID 09/30/16 Levothyroxine [Synthroid -] 12.5 mcg PO DAILY 09/30/16 Levothyroxine [Synthroid -] 25 mcg PO DAILY 09/30/16 Petrolatum,White/Lanolin [Vitamin A & D Ointment] 454 gm TP QID 09/30/16 Polyethylene Glycol 3350 [Gavilax] 17 gm GT DAILY 09/30/16 Potassium Chloride [Potassium Chloride Oral Liquid] 20 meq GT DAILY 09/30/16 Valproic Acid (As Sodium Salt) [Valproic Acid] 5 ml GT AM 09/30/16 Valproic Acid (As Sodium Salt) [Valproic Acid] 250 mg GT HS 09/30/16 Physical Exam-GI Vital Signs: Vital Signs Temperature 98.3 F 10/01/16 05:46 Pulse Rate 104 H 10/01/16 05:46 Respiratory Rate 14 10/01/16 10:51 Blood Pressure 108/63 10/01/16 05:46 O2 Sat by Pulse Oximetry (%) 100 10/01/16 00:43 Constitutional: Yes: Well Nourished, Mild Distress, Other (jaundice) Eyes: Yes: Sclera Icterus HENT: Yes: Atraumatic Cardiovascular: Yes: Regular Rate and Rhythm Respiratory: Yes: CTA Bilaterally Gastrointestinal Inspection: Yes: Distention ...Auscultate: Yes: Hypoactive Bowel Sounds Integumentary: Yes: Jaundice Labs: INR, PTT INR 1.41 (0.82-1.09) H 09/30/16 06:37 Assessment/Plan 35 F with above history admitted with t bili 15 and deeply jaundiced. No imaging studies available Marked abdominal distention which has been evaluated in the past. Will get stat U/S and AXR A CT has been ordered as well If biliary obstruction, will need to be transferred to [facility] for ERCP. Needs surgical eval as well for possible cholecystectomy Spoke with her HCP, her sister Shyanne, who will be coming in later. She is now considering goals of care and may decide on hospice
[2016-10-01] MEDS ORDERED: INSULIN DETEMIR 100 UNITS/ML MDV SQ SCH (22:00)
[2016-10-01] MEDS: RANITIDINE HCL 150 MG/10 ML UNIT-DOSE CUP GT SCH (22:31)
[2016-10-02] MEDS: BUDESONIDE/FORMETEROL FUMARATE 160/4.5 mcg INHALER IH SCH ×2 (00:01→09:20)
--- NOTE | 2016-10-02 01:37 | CONSULT ---
Consult Consult Specialty:: endocrine Referred by:: dr.annabi garza Reason for Consultation:: iddm - History of Present Illness Chief Complaint: sepsis respirator dependent History of Present Illness: 35 F, pmh iddm. cerebral palsy,quadroplegia,poorly responsive, Chronic Respiratory Failure, history of MRCP, Seizures, and Chronic lung disease. Admitted via the ER for possible sepsis. Source suspected the biliary tract.has had elevated blood sugars,requiring insulin coverage higher doses for hyperglycemia,progressive decline in mental status. 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 No: Multiple Sclerosis Pulmonary: Yes: O2 Dependent, Previously Intubated, Other (respiratory failure) Gastrointestinal: Yes: Constipation, Other (H/O PSEUDOMEGA-COLON INTERMITTANTLY REQUIRING RECTAL TUBE) ...LMP: 09/05/16 ...: No Psych: Yes: Other (MENTAL RETARDATION) Endocrine: Yes: Diabetes Mellitus - Past Surgical History Past Surgical History: Yes: AICD - Alcohol/Substance Use Hx Alcohol Use: No - Smoking History Smoking history: Unknown if ever smoked Have you smoked in the past 12 months: No Aproximately how many cigarettes per day: 0 - Social History Usual Living Arrangement: Correction Home Medications - Allergies Allergies/Adverse Reactions: Allergies Allergy/AdvReac Type Severity Reaction Status Date / Time No Known Allergies Allergy Verified 09/30/16 05:53 - Home Medications Home Medications: Ambulatory Orders Acetaminophen [Tylenol] 650 mg GT Q6H PRN 09/30/16 Ascorbate Calcium [Vitamin C] 500 mg GT DAILY 09/30/16 Budesonide/Formeterol Fumarate [SYMBICORT 160/4.5mcg -] 1 inh PO BID 09/30/16 Diazepam 2 mg GT BID 09/30/16 Famotidine 20 mg GT HS 09/30/16 Heparin - 5,000 unit SQ BID 09/30/16 Hydrocortisone 1% Cream [Hytone 1% Cream -] 1 applic TP BID 09/30/16 Insulin (Levemir) [Levemir Flexpen -] 36 units SQ HS 09/30/16 Insulin (Levemir) [Levemir Vial] 40 unit SQ AM 09/30/16 Insulin Lispro [Humalog] 0 unit SQ ASDIR 09/30/16 Ipratropium/Albuterol Sulfate [Iprat-Albut 0.5-3(2.5) mg/3 ml] 3 ml IH QID 09/30 Lamotrigine 25 mg GT BID 09/30/16 Levothyroxine [Synthroid -] 12.5 mcg PO DAILY 09/30/16 Levothyroxine [Synthroid -] 25 mcg PO DAILY 09/30/16 Petrolatum,White/Lanolin [Vitamin A & D Ointment] 454 gm TP QID 09/30/16 Polyethylene Glycol 3350 [Gavilax] 17 gm GT DAILY 09/30/16 Potassium Chloride [Potassium Chloride Oral Liquid] 20 meq GT DAILY 09/30/16 Valproic Acid (As Sodium Salt) [Valproic Acid] 5 ml GT AM 09/30/16 Valproic Acid (As Sodium Salt) [Valproic Acid] 250 mg GT HS 09/30/16 Physical Exam Vital Signs: Vital Signs Temperature 97.7 F 10/01/16 18:00 Pulse Rate 105 H 10/01/16 18:00 Respiratory Rate 16 10/01/16 22:48 Blood Pressure 101/49 10/01/16 18:00 O2 Sat by Pulse Oximetry (%) 100 10/01/16 09:00 Constitutional: Yes: Moderate Distress HENT: Yes: Thrush, Other (microcephaly) Cardiovascular: Yes: Regular Rate and Rhythm Respiratory: Yes: Mechanically Ventilated, Tachypnea Gastrointestinal: Yes: Ascites, Distention ...Rectal Exam: Yes: Deferred Renal/: Yes: WNL Musculoskeletal: Yes: Joint Stiffness, Joint Swelling Edema: Yes Edema: LLE: Trace, RLE: Trace Peripheral Pulses WNL: Yes Neurological: Yes: Unresponsive Labs: CBC, BMP 10/01/16 09:24 Problem List - Problems (1) Diabetes mellitus, insulin dependent (IDDM), uncontrolled Code(s): E10.65 - TYPE 1 DIABETES MELLITUS WITH HYPERGLYCEMIA Qualifiers: Diabetes mellitus complication detail: with other neurological complication Assessment/Plan Current Active Problems Cholangitis (Acute) Hyperglycemia (Acute) Jaundice (Acute) Sepsis (Acute) iddm uncontrolled sepsis Abnormal Lab Results 10/01/16 10/01/16 07:25 09:24 ABG pO2 at Pt Temp 136.0 H ABG O2 Sat (Measured) 100.0 H* ABG O2 Content 8.2 L* BUN 24 H D Random Glucose 262 H D Total Bilirubin 15.9 H* D AST 179 H Alkaline Phosphatase 453 H D C-Reactive Protein 35.6 H Total Protein 5.9 L D Albumin 1.8 L D Lipase 668 H Laboratory Results - last 24 hr 10/01/16 10/01/16 10/01/16 05:37 07:25 09:24 Puncture Site Right radial ABG pH 7.44 ABG pCO2 at Pt Temp 37.9 ABG pO2 at Pt Temp 136.0 H ABG HCO3 25.2 ABG O2 Sat (Measured) 100.0 H* ABG O2 Content 8.2 L* ABG Base Excess 1.4 Deion Test Positive O2 Delivery Device Mech vent Oxygen Flow Rate 35% Vent Mode Ac Vent Rate 14 Mechanical Rate Y PEEP 5.0 Pressure Support Vent 350 Sodium 139 Potassium 3.6 Chloride 102 Carbon Dioxide 25 Anion Gap 12 BUN 24 H D Creatinine 0.6 Creat Clearance w eGFR > 60 POC Glucometer 331 Random Glucose 262 H D Calcium 8.5 Total Bilirubin 15.9 H* D AST 179 H ALT 60 Alkaline Phosphatase 453 H D C-Reactive Protein 35.6 H Total Protein 5.9 L D Albumin 1.8 L D Total Amylase 40 Lipase 668 H 10/01/16 10/01/16 10/01/16 09:24 12:23 21:34 Puncture Site ABG pH ABG pCO2 at Pt Temp ABG pO2 at Pt Temp ABG HCO3 ABG O2 Sat (Measured) ABG O2 Content ABG Base Excess Deion Test O2 Delivery Device Oxygen Flow Rate Vent Mode Vent Rate Mechanical Rate PEEP Pressure Support Vent Sodium Cancelled Potassium Cancelled Chloride Cancelled Carbon Dioxide Cancelled Anion Gap Cancelled BUN Cancelled Creatinine Cancelled Creat Clearance w eGFR Cancelled POC Glucometer 324 386 Random Glucose Cancelled Calcium Cancelled Total Bilirubin Cancelled AST Cancelled ALT Cancelled Alkaline Phosphatase Cancelled C-Reactive Protein Total Protein Cancelled Albumin Cancelled Total Amylase Cancelled Lipase Cancelled plan:bgm qid novolog levemir 20 units am for sugar above 180 supportive care
[2016-10-02] MEDS: INSULIN SLIDING SCALE (NOVOLOG) 1 VIAL SQ SCH ×3 (03:00→12:32)
[2016-10-02] MEDS: SODIUM CHLORIDE 0.45%/POT 1,000 ML IV SCH ×2 (03:10→12:33)
[2016-10-02] MEDS: PIPERACILLIN/TAZOB 3.375 GM 50 ML IVPB SCH ×2 (03:10→09:10)
[2016-10-02] MEDS: ALBUTEROL SO4 2.5/IPRATROPIUM 0.5 INH SOL 3 ML VIAL.NEB. NEB SCH ×2 (06:36→11:09)
[2016-10-02] MEDS: VALPROATE SODIUM 250 MG/5 ML UNIT DOSE CUP GT SCH (06:50)
--- NOTE | 2016-10-02 08:45 | PN ---
Progress Note, Physician History of Present Illness: JAUNDICE IN BED ON VENT - Current Medication List Current Medications: Active Medications Acetaminophen (Tylenol Oral Solution -) 650 mg GT Q6H PRN PRN Reason: FEVER OR PAIN Albuterol/Ipratropium (Duoneb -) 1 amp NEB QIDR [facility] Last Admin: 10/02/16 06:36 Dose: 1 amp Ascorbic Acid (Vitamin C Oral Solution -) 500 mg GT DAILY [facility] Last Admin: 10/01/16 10:01 Dose: 500 mg Budesonide/Formoterol Fumarate (Symbicort 160/4.5mcg -) 2 puff IH BID [facility] Last Admin: 10/02/16 00:01 Dose: Not Given Diazepam (Valium -) 2 mg GT BID [facility] Last Admin: 10/01/16 22:31 Dose: 2 mg Heparin Sodium (Porcine) (Heparin -) 5,000 unit SQ BID [facility] Last Admin: 10/01/16 22:33 Dose: 5,000 unit Piperacillin Sod/Tazobactam Sod (Zosyn 3.375gm Ivpb (Pre-Docked)) 50 mls @ 100 mls/hr IVPB Q6H-IV ADDISON PRN Reason: Protocol Last Admin: 10/02/16 03:10 Dose: 100 mls/hr Potassium Chloride/Sodium Chloride (1/2ns+20meq Kcl) 1,000 mls @ 75 mls/hr IV ASDIR [facility] Last Admin: 10/02/16 03:10 Dose: 75 mls/hr Insulin Aspart (Novolog Vial Sliding Scale -) 1 vial SQ ACHS ADDISON PRN Reason: Protocol Last Admin: 10/02/16 06:49 Dose: 6 units Insulin Detemir (Levemir Vial) 20 units SQ HS [facility] Last Admin: 10/01/16 22:34 Dose: Not Given Lamotrigine (Lamictal -) 25 mg NR BID [facility] Last Admin: 10/01/16 22:31 Dose: 25 mg Levothyroxine Sodium (Synthroid -) 25 mcg GT DAILY [facility] Last Admin: 10/01/16 09:58 Dose: 25 mcg Polyethylene Glycol (Miralax (For Daily Use) -) 17 gm GT DAILY [facility] Last Admin: 10/01/16 09:58 Dose: 17 grams Potassium Chloride (Potassium Chloride Oral Liquid) 20 meq GT DAILY [facility] Last Admin: 10/01/16 09:58 Dose: 20 meq Ranitidine HCl (Zantac Oral Solution -) 150 mg GT HS [facility] Last Admin: 10/01/16 22:31 Dose: 150 mg Sodium Chloride (Normal Saline -) 100 ml IV Q20M PRN PRN Reason: MAP<65mm Hg OR SBP <90 Valproate Sodium (Depakene -) 250 mg GT HS [facility] Last Admin: 10/01/16 22:33 Dose: 250 mg Valproate Sodium (Depakene -) 250 mg GT AM [facility] Last Admin: 10/02/16 06:50 Dose: 250 mg Vitamin A/Vitamin D (Vitamin A & D Top Oint -) 1 applic TP QID [facility] Last Admin: 10/01/16 22:37 Dose: 1 applic - Objective Vital Signs: Vital Signs Temperature 97.2 F L 10/02/16 06:00 Pulse Rate 96 H 10/02/16 06:00 Respiratory Rate 17 10/02/16 06:38 Blood Pressure 124/69 10/02/16 06:00 O2 Sat by Pulse Oximetry (%) 100 10/01/16 21:00 Cardiovascular: Yes: S1, S2 Respiratory: Yes: Mechanically Ventilated Gastrointestinal: Yes: Distention Labs: CBC, BMP 10/01/16 09:24 INR, PTT INR 1.41 (0.82-1.09) H 09/30/16 06:37 Problem List - Problems (1) Cholangitis Assessment/Plan: IV ABX PER ID AWAIT IMAGING--CT/US PENDING GI CONSULT NOTED --D/W DR PLASCENCIA--FAMILY TO DECIDE ON FURTHER CARE-- CONSIDERING COMFORT MEASURES Code(s): K83.0 - CHOLANGITIS (2) Sepsis Assessment/Plan: ABX PER ID Code(s): A41.9 - SEPSIS, UNSPECIFIED ORGANISM Qualifiers: Sepsis type: sepsis due to unspecified organism Qualified Code(s): A41.9 - Sepsis, unspecified organism (3) Cerebral palsy Assessment/Plan: MONITOR Code(s): G80.9 - CEREBRAL PALSY, UNSPECIFIED Qualifiers: Cerebral palsy type: unspecified type Qualified Code(s): G80.9 - Cerebral palsy, unspecified (4) Chronic respiratory failure Assessment/Plan: VENT SETTING PER PULM Code(s): J96.10 - CHRONIC RESPIRATORY FAILURE, UNSP W HYPOXIA OR HYPERCAPNIA Qualifiers: Respiratory failure complication: unspecified whether with hypoxia or hypercapnia Qualified Code(s): J96.10 - Chronic respiratory failure, unspecified whether with hypoxia or hypercapnia (5) Jaundice Assessment/Plan: F/U JAMILA--LAST ONE 15 W/U ORDERED Code(s): R17 - UNSPECIFIED JAUNDICE
[2016-10-02] MEDS ORDERED: PT OWN MED DRAWER 7, Y5N ONE (09:07)
[2016-10-02] MEDS: lamoTRIgine 25 MG TABLET NR SCH (09:16)
[2016-10-02] MEDS: LEVOTHYROXINE NA 25 MCG TABLET (FP) GT SCH (09:16)
[2016-10-02] MEDS: HEPARIN NA (PORCINE) 5,000 UNITS/ML 1ML VIAL SQ SCH (09:16)
[2016-10-02] MEDS: POTASSIUM CHLORIDE ORAL LIQUID 20 MEQ/15 ML GT SCH (09:16)
[2016-10-02] MEDS: diazePAM 2 MG TABLET GT SCH (09:16)
[2016-10-02] MEDS: POLYETHYLENE GLYCOL 3350 119 GM BTL GT SCH (09:16)
[2016-10-02] MEDS: VITAMINS A AND D TOPICAL OINTMENT 60 GM TUBE TP SCH ×2 (09:18→17:18)
[2016-10-02] MEDS: ASCORBIC ACID 500 MG/5 ML UNIT DOSE CUP GT SCH (09:18)
[2016-10-02 09:26] LABS: BASOPHIL 0.7 % (0-2.0); EOSINOPHIL 0.3 % (0-4.5); MCH 27.3 pg (25.7-33.7); MCHC 31.9 g/dl (32.0-36.0); MEAN CELL VOLUME 85.4 fl (80-96); MEAN PLT VOLUME 7.9 fl (7.5-11.1); NEUTROPHILS 74.3 % (42.8-82.8); PLATELET COUNT 200 K/MM3 (134-434); RDW 21.8 % (11.6-15.6); WHITE BLOOD COUNT 6.7 K/mm3 (4.0-10.0)
--- NOTE | 2016-10-02 09:34 | CONSULT ---
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 No: Multiple Sclerosis Pulmonary: Yes: O2 Dependent, Previously Intubated, Other (respiratory failure) Gastrointestinal: Yes: Constipation, Other (H/O PSEUDOMEGA-COLON INTERMITTANTLY REQUIRING RECTAL TUBE) ...LMP: 09/05/16 ...: No Psych: Yes: Other (MENTAL RETARDATION) Endocrine: Yes: Diabetes Mellitus - Past Surgical History Past Surgical History: Yes: AICD - Alcohol/Substance Use Hx Alcohol Use: No - Smoking History Smoking history: Unknown if ever smoked Have you smoked in the past 12 months: No Aproximately how many cigarettes per day: 0 - Social History Usual Living Arrangement: Jail Home Medications - Allergies Allergies/Adverse Reactions: Allergies Allergy/AdvReac Type Severity Reaction Status Date / Time No Known Allergies Allergy Verified 09/30/16 05:53 - Home Medications Home Medications: Ambulatory Orders Acetaminophen [Tylenol] 650 mg GT Q6H PRN 09/30/16 Ascorbate Calcium [Vitamin C] 500 mg GT DAILY 09/30/16 Budesonide/Formeterol Fumarate [SYMBICORT 160/4.5mcg -] 1 inh PO BID 09/30/16 Diazepam 2 mg GT BID 09/30/16 Famotidine 20 mg GT HS 09/30/16 Heparin - 5,000 unit SQ BID 09/30/16 Hydrocortisone 1% Cream [Hytone 1% Cream -] 1 applic TP BID 09/30/16 Insulin (Levemir) [Levemir Flexpen -] 36 units SQ HS 09/30/16 Insulin (Levemir) [Levemir Vial] 40 unit SQ AM 09/30/16 Insulin Lispro [Humalog] 0 unit SQ ASDIR 09/30/16 Ipratropium/Albuterol Sulfate [Iprat-Albut 0.5-3(2.5) mg/3 ml] 3 ml IH QID 09/30 Lamotrigine 25 mg GT BID 09/30/16 Levothyroxine [Synthroid -] 12.5 mcg PO DAILY 09/30/16 Levothyroxine [Synthroid -] 25 mcg PO DAILY 09/30/16 Petrolatum,White/Lanolin [Vitamin A & D Ointment] 454 gm TP QID 09/30/16 Polyethylene Glycol 3350 [Gavilax] 17 gm GT DAILY 09/30/16 Potassium Chloride [Potassium Chloride Oral Liquid] 20 meq GT DAILY 09/30/16 Valproic Acid (As Sodium Salt) [Valproic Acid] 5 ml GT AM 09/30/16 Valproic Acid (As Sodium Salt) [Valproic Acid] 250 mg GT HS 09/30/16 Family Disease History - Family Disease History Family History: Unable to Obtain Review of Systems Unable to obtain ROS, reason: On ventilator Physical Exam Vital Signs: Vital Signs Temperature 97.2 F L 10/02/16 06:00 Pulse Rate 96 H 10/02/16 06:00 Respiratory Rate 17 10/02/16 06:38 Blood Pressure 124/69 10/02/16 06:00 O2 Sat by Pulse Oximetry (%) 100 10/01/16 21:00 Constitutional: Yes: Other (+ Jaundice) Eyes: Yes: Sclera Icterus Cardiovascular: Yes: Tachycardia Respiratory: Yes: Diminished Gastrointestinal: Yes: Soft, Distention, Tenderness (RUQ), Tenderness, Epigastrium Labs: CBC,CMP WBC 14.7 K/mm3 (4.0-10.0) H D 09/30/16 06:37 RBC 3.51 M/mm3 (3.60-5.2) L 09/30/16 06:37 Hgb 9.1 GM/dL (10.7-15.3) L 09/30/16 06:37 Hct 30.9 % (32.4-45.2) L 09/30/16 06:37 MCV 88.0 fl (80-96) 09/30/16 06:37 MCHC 29.6 g/dl (32.0-36.0) L 09/30/16 06:37 RDW 22.9 % (11.6-15.6) H D 09/30/16 06:37 Plt Count 350 K/MM3 (134-434) D 09/30/16 06:37 MPV 8.2 fl (7.5-11.1) 09/30/16 06:37 Neutrophils % 86.3 % (42.8-82.8) H D 09/30/16 06:37 Lymphocytes % 3.9 % (8-40) L D 09/30/16 06:37 Monocytes % 9.3 % (3.8-10.2) 09/30/16 06:37 Eosinophils % 0.1 % (0-4.5) D 09/30/16 06:37 Basophils % 0.4 % (0-2.0) D 09/30/16 06:37 Hypochromic-Microcytic 1+ 09/30/16 06:37 Anisocytosis 2+ 09/30/16 06:37 Microcytosis 2+ 09/30/16 06:37 Target Cells Few 09/30/16 06:37 Sodium 139 mmol/L (136-145) 10/01/16 09:24 Potassium 3.6 mmol/L (3.5-5.1) 10/01/16 09:24 Chloride 102 mmol/L (98-107) 10/01/16 09:24 Carbon Dioxide 25 mmol/L (21-32) 10/01/16 09:24 Anion Gap 12 (8-16) 10/01/16 09:24 BUN 24 mg/dL (7-18) H D 10/01/16 09:24 Creatinine 0.6 mg/dL (0.55-1.02) 10/01/16 09:24 Creat Clearance w eGFR > 60 (>60) 10/01/16 09:24 POC Glucometer 317 UNITS (()) 10/02/16 05:16 Random Glucose 262 mg/dL (74-106) H D 10/01/16 09:24 Lactic Acid 1.2 mmol/L (0.4-2.0) 09/30/16 06:29 Calcium 8.5 mg/dL (8.5-10.1) 10/01/16 09:24 Total Bilirubin 15.9 mg/dL (0.2-1.0) H* D 10/01/16 09:24 AST 179 U/L (15-37) H 10/01/16 09:24 ALT 60 U/L (12-78) 10/01/16 09:24 Alkaline Phosphatase 453 U/L (45-117) H D 10/01/16 09:24 Creatine Kinase 11 IU/L (26-192) L 09/30/16 06:37 Troponin I < 0.03 ng/ml (0.00-0.05) 09/30/16 06:37 C-Reactive Protein 35.6 MG/DL (0.00-0.3) H 10/01/16 09:24 Total Protein 5.9 g/dl (6.4-8.2) L D 10/01/16 09:24 Albumin 1.8 g/dl (3.4-5.0) L D 10/01/16 09:24 Total Amylase 40 U/L (25-115) 10/01/16 09:24 Lipase 668 U/L (73-393) H 10/01/16 09:24 Serum , Qual Negative 09/30/16 07:39 Imaging - Results Cat Scan: Pending Ultrasound: Pending Problem List - Problems (1) Cholangitis Code(s): K83.0 - CHOLANGITIS (2) Jaundice Code(s): R17 - UNSPECIFIED JAUNDICE (3) Sepsis Code(s): A41.9 - SEPSIS, UNSPECIFIED ORGANISM Qualifiers: Sepsis type: sepsis due to unspecified organism Qualified Code(s): A41.9 - Sepsis, unspecified organism (4) Cerebral palsy Code(s): G80.9 - CEREBRAL PALSY, UNSPECIFIED Qualifiers: Cerebral palsy type: unspecified type Qualified Code(s): G80.9 - Cerebral palsy, unspecified (5) Chronic respiratory failure Code(s): J96.10 - CHRONIC RESPIRATORY FAILURE, UNSP W HYPOXIA OR HYPERCAPNIA Qualifiers: Respiratory failure complication: unspecified whether with hypoxia or hypercapnia Qualified Code(s): J96.10 - Chronic respiratory failure, unspecified whether with hypoxia or hypercapnia Assessment/Plan 35 female with cerebral palsy with cholangitis/biliary sepsis On ventilator + Jaundice Bilirubin 15.9 WBC 14.7 Lipase 688 MRCP ordered but unable to proceed per RN because patient is on a ventilator GI following Needs stat ERCP and possible percutaneous cholecystostomy by Interventional radiology NPO IV fluids Would recommend ICU care If unable to have ERCP, needs urgent transfer to tertiary care center Not a surgical candidate Patient too high risk
[2016-10-02 09:51] LABS: ALBUMIN 1.7 g/dl (3.4-5.0); ANION GAP 9 (8-16); CALCIUM 8.5 mg/dL (8.5-10.1); CO2 25 mmol/L (21-32); CREATININE 0.5 mg/dL (0.55-1.02); GLUCOSE,RANDOM 192 mg/dL (74-106); SGOT/AST 188 U/L (15-37); SGPT/ALT 68 U/L (12-78)
[2016-10-02 10:04] LABS: ALK PHOS 655 U/L (45-117); TOT PROT 5.9 g/dl (6.4-8.2)
[2016-10-02 10:09] LABS: BILIRUBIN,TOTAL 15.2 mg/dL (0.2-1.0)
--- NOTE | 2016-10-02 10:14 | PN ---
Progress Note, Physician Chief Complaint: ID Discussed with PMD regarding bacteremia and jaundice abd distension - Current Medication List Current Medications: Active Medications Acetaminophen (Tylenol Oral Solution -) 650 mg GT Q6H PRN PRN Reason: FEVER OR PAIN Albuterol/Ipratropium (Duoneb -) 1 amp NEB QIDR [facility] Last Admin: 10/02/16 06:36 Dose: 1 amp Ascorbic Acid (Vitamin C Oral Solution -) 500 mg GT DAILY [facility] Last Admin: 10/02/16 09:18 Dose: 500 mg Budesonide/Formoterol Fumarate (Symbicort 160/4.5mcg -) 2 puff IH BID [facility] Last Admin: 10/02/16 09:20 Dose: Not Given Diazepam (Valium -) 2 mg GT BID [facility] Last Admin: 10/02/16 09:16 Dose: 2 mg Heparin Sodium (Porcine) (Heparin -) 5,000 unit SQ BID [facility] Last Admin: 10/02/16 09:16 Dose: 5,000 unit Piperacillin Sod/Tazobactam Sod (Zosyn 3.375gm Ivpb (Pre-Docked)) 50 mls @ 100 mls/hr IVPB Q6H-IV [facility] PRN Reason: Protocol Last Admin: 10/02/16 09:10 Dose: 100 mls/hr Potassium Chloride/Sodium Chloride (1/2ns+20meq Kcl) 1,000 mls @ 75 mls/hr IV ASDIR [facility] Last Admin: 10/02/16 03:10 Dose: 75 mls/hr Insulin Aspart (Novolog Vial Sliding Scale -) 1 vial SQ ACHS [facility] PRN Reason: Protocol Last Admin: 10/02/16 06:49 Dose: 6 units Insulin Detemir (Levemir Vial) 20 units SQ HS [facility] Last Admin: 10/01/16 22:34 Dose: Not Given Lamotrigine (Lamictal -) 25 mg NR BID [facility] Last Admin: 10/02/16 09:16 Dose: 25 mg Levothyroxine Sodium (Synthroid -) 25 mcg GT DAILY [facility] Last Admin: 10/02/16 09:16 Dose: 25 mcg Polyethylene Glycol (Miralax (For Daily Use) -) 17 gm GT DAILY [facility] Last Admin: 10/02/16 09:16 Dose: 17 grams Potassium Chloride (Potassium Chloride Oral Liquid) 20 meq GT DAILY [facility] Last Admin: 10/02/16 09:16 Dose: 20 meq Ranitidine HCl (Zantac Oral Solution -) 150 mg GT HS [facility] Last Admin: 10/01/16 22:31 Dose: 150 mg Sodium Chloride (Normal Saline -) 100 ml IV Q20M PRN PRN Reason: MAP<65mm Hg OR SBP <90 Valproate Sodium (Depakene -) 250 mg GT HS [facility] Last Admin: 10/01/16 22:33 Dose: 250 mg Valproate Sodium (Depakene -) 250 mg GT AM [facility] Last Admin: 10/02/16 06:50 Dose: 250 mg Vitamin A/Vitamin D (Vitamin A & D Top Oint -) 1 applic TP QID [facility] Last Admin: 10/02/16 09:18 Dose: 1 applic - Objective Vital Signs: Vital Signs Temperature 97.2 F L 10/02/16 06:00 Pulse Rate 96 H 10/02/16 06:00 Respiratory Rate 17 10/02/16 06:38 Blood Pressure 124/69 10/02/16 06:00 O2 Sat by Pulse Oximetry (%) 100 10/01/16 21:00 Constitutional: Yes: Mild Distress Cardiovascular: Yes: S1, S2 Respiratory: Yes: WNL, Regular, CTA Bilaterally Gastrointestinal: Yes: Soft, Distention Integumentary: Yes: Jaundice Labs: CBC, BMP 10/02/16 08:40 INR, PTT INR 1.41 (0.82-1.09) H 09/30/16 06:37 Problem List - Problems (1) Sepsis Code(s): A41.9 - SEPSIS, UNSPECIFIED ORGANISM Qualifiers: Sepsis type: sepsis due to unspecified organism Qualified Code(s): A41.9 - Sepsis, unspecified organism (2) Diabetes Code(s): E11.9 - TYPE 2 DIABETES MELLITUS WITHOUT COMPLICATIONS (3) Cholangitis Code(s): K83.0 - CHOLANGITIS (4) Bacteremia due to Klebsiella pneumoniae Code(s): R78.81 - BACTEREMIA Assessment/Plan Microbiology 10/01/16 04:17 Sputum - Endotrachea Suction/Ventilator Gram Stain - Final 09/30/16 07:23 Urine - Urine - Catheterized Urine Culture - Final NO GROWTH OBTAINED 09/30/16 06:37 Blood - Peripheral Venous Blood Culture - Preliminary NO GROWTH OBTAINED AFTER 48 HOURS, INCUBATION TO CONTINUE FOR 3 DAYS. 09/30/16 06:37 Blood - Peripheral Venous Blood Culture - Preliminary Klebsiella Pneumoniae Laboratory Tests 10/02/16 10/02/16 08:40 08:40 WBC 6.7 D Hgb 5.8 L* D Hct 18.0 L D Plt Count 200 D BUN 14 D Creatinine 0.5 L Total Bilirubin 15.2 H* Alkaline Phosphatase 655 H D Assessment Sepsis syndrome Klebsiella bacteremia biliary source Anemia Respiratory failure Obstructive jaundice Plan Stop Zosyn Substitute Cefazolin 1 gram q 8h Blood transfusion ? Comfort care to be discussed Sonogram report pending Aubree ANDEROSN
[2016-10-02 10:50] LABS: ANISOCYTOSIS 2+; HYPOCHROMIA 1+; MICROCYTOSIS 1+; PLATELET ESTIMATE ADEQUATE (NORMAL); POLYCHROMASIA FEW
[2016-10-02 10:54] LABS: ERYTHROCYTE SEDIMENTATION RATE > 130 mm/hr (0-20)
--- NOTE | 2016-10-02 12:26 | PN ---
GI Progress Note Subjective: Patient with t bili 15 and Hgb now 5. Family present - Objective Vital Signs: Vital Signs Temperature 97.2 F L 10/02/16 06:00 Pulse Rate 96 H 10/02/16 06:00 Respiratory Rate 18 10/02/16 10:25 Blood Pressure 124/69 10/02/16 06:00 O2 Sat by Pulse Oximetry (%) 100 10/01/16 21:00 Constitutional: Well Nourished Eyes: Yes: Sclera Icterus Cardiovascular: Yes: Tachycardia Respiratory: Yes: Intubated Gastrointestinal Inspection: Yes: Distention ...Auscultate: Yes: Hypoactive Bowel Sounds ...Palpate: Yes: Firm/Rigid (Patient intubated and non-verbal so unable to assess tenderness) ...Percussion: Yes: Tympanitic Integumentary: Yes: Jaundice Neurological: Yes: Unresponsive, Other (profound MR) Labs: CBC, BMP 10/02/16 08:40 10/02/16 08:40 INR, PTT INR 1.41 (0.82-1.09) H 09/30/16 06:37 Hepatic Panel Total Bilirubin 15.2 mg/dL (0.2-1.0) H* 10/02/16 08:40 AST 188 U/L (15-37) H 10/02/16 08:40 ALT 68 U/L (12-78) 10/02/16 08:40 Alkaline Phosphatase 655 U/L (45-117) H D 10/02/16 08:40 Albumin 1.7 g/dl (3.4-5.0) L 10/02/16 08:40 - ....Imaging Ultrasound: Report Reviewed (Normal ducts but possible distal stone.) Assessment/Plan 35 F with above history admitted with t bili 15 and deeply jaundiced. Likely biliary obstruction based on U/S and labs Marked abdominal distention which has been evaluated in the past. AXR demonstrates distended bowel likely on the basis of large amount of retained stool. Spoke with her HCP, her sister Shyanne, and other extended family members at length. They have decided on hospice care and are requesting compassionate weaning. Dr Pittmanaud aware and will be making the arrangements.
--- NOTE | 2016-10-02 15:06 | PN ---
Progress Note (short form) - Note Progress Note: Overall worsening of her condition. Significant jaundice. Long discussion with her sisters. The oldest sister has been making her medical decisions since their parents . Intake & Output 09/29/16 09/30/16 10/01/16 10/02/16 23:59 23:59 23:59 23:59 Intake Total 450 2120 875 Output Total 1 Balance 449 2120 875 Weight 115 lb 3.2 oz Last Vital Signs Temp Pulse Resp BP Pulse Ox 98.7 F 107 H 15 107/55 100 10/02/16 14:19 10/02/16 14:19 10/02/16 14:19 10/02/16 14:19 10/01/16 21:00 Active Medications Acetaminophen (Tylenol Oral Solution -) 650 mg GT Q6H PRN PRN Reason: FEVER OR PAIN Albuterol/Ipratropium (Duoneb -) 1 amp NEB QIDR [facility] Last Admin: 10/02/16 11:09 Dose: 1 amp Ascorbic Acid (Vitamin C Oral Solution -) 500 mg GT DAILY [facility] Last Admin: 10/02/16 09:18 Dose: 500 mg Budesonide/Formoterol Fumarate (Symbicort 160/4.5mcg -) 2 puff IH BID [facility] Last Admin: 10/02/16 09:20 Dose: Not Given Diazepam (Valium -) 2 mg GT BID [facility] Last Admin: 10/02/16 09:16 Dose: 2 mg Heparin Sodium (Porcine) (Heparin -) 5,000 unit SQ BID [facility] Last Admin: 10/02/16 09:16 Dose: 5,000 unit Potassium Chloride/Sodium Chloride (1/2ns+20meq Kcl) 1,000 mls @ 75 mls/hr IV ASDIR [facility] Last Admin: 10/02/16 12:33 Dose: Not Given Cefazolin Sodium (Ancef 1gm Ivpb (Pre-Docked)) 50 mls @ 100 mls/hr IVPB Q8H-IV [facility] Insulin Aspart (Novolog Vial Sliding Scale -) 1 vial SQ ACHS [facility] PRN Reason: Protocol Last Admin: 10/02/16 12:32 Dose: Not Given Insulin Detemir (Levemir Vial) 20 units SQ HS [facility] Last Admin: 10/01/16 22:34 Dose: Not Given Lamotrigine (Lamictal -) 25 mg NR BID [facility] Last Admin: 10/02/16 09:16 Dose: 25 mg Levothyroxine Sodium (Synthroid -) 25 mcg GT DAILY [facility] Last Admin: 10/02/16 09:16 Dose: 25 mcg Polyethylene Glycol (Miralax (For Daily Use) -) 17 gm GT DAILY [facility] Last Admin: 10/02/16 09:16 Dose: 17 grams Potassium Chloride (Potassium Chloride Oral Liquid) 20 meq GT DAILY [facility] Last Admin: 10/02/16 09:16 Dose: 20 meq Ranitidine HCl (Zantac Oral Solution -) 150 mg GT HS [facility] Last Admin: 10/01/16 22:31 Dose: 150 mg Sodium Chloride (Normal Saline -) 100 ml IV Q20M PRN PRN Reason: MAP<65mm Hg OR SBP <90 Valproate Sodium (Depakene -) 250 mg GT HS [facility] Last Admin: 10/01/16 22:33 Dose: 250 mg Valproate Sodium (Depakene -) 250 mg GT AM [facility] Last Admin: 10/02/16 06:50 Dose: 250 mg Vitamin A/Vitamin D (Vitamin A & D Top Oint -) 1 applic TP QID [facility] Last Admin: 10/02/16 09:18 Dose: 1 applic Constitutional: Yes: Severely jaundiced, Vented Eyes: Yes: Jaundiced HENT: Yes: Atraumatic Neck: Yes: Other (Trached) Cardiovascular: Yes: Regular Rate and Rhythm Respiratory: Yes: Mechanically Ventilated, Rhonchi. No: Accessory Muscle Use, Rales, Stridor, Tachypnea, Wheezes ...Clubbing: No Gastrointestinal: Yes: Normal Bowel Sounds, Soft Extremities: Yes: Shortened. No: Cool, Cyanosis Edema: No Peripheral Pulses WNL: Yes Labs: Laboratory Results - last 24 hr 09/30/16 10/01/16 10/02/16 06:37 21:34 02:58 WBC RBC Hgb Hct MCV MCHC RDW Plt Count MPV Neutrophils % Lymphocytes % Monocytes % Eosinophils % Basophils % Platelet Estimate Platelet Comment Polychromasia Hypochromic-Microcytic Anisocytosis Microcytosis ESR Sodium Potassium Chloride Carbon Dioxide Anion Gap BUN Creatinine Creat Clearance w eGFR POC Glucometer 386 312 Random Glucose Calcium Total Bilirubin AST ALT Alkaline Phosphatase Total Protein Albumin Blood Type O POSITIVE Antibody Screen Negative Crossmatch See Detail 0510/02/16 10/02/16 05:16 08:40 08:40 WBC 6.7 D RBC 2.11 L D Hgb 5.8 L* D Hct 18.0 L D MCV 85.4 MCHC 31.9 L RDW 21.8 H Plt Count 200 D MPV 7.9 Neutrophils % 74.3 Lymphocytes % 16.0 D Monocytes % 8.7 Eosinophils % 0.3 D Basophils % 0.7 Platelet Estimate Adequate Platelet Comment No clumping noted Polychromasia Few Hypochromic-Microcytic 1+ Anisocytosis 2+ Microcytosis 1+ ESR > 130 H Sodium 136 Potassium 4.3 Chloride 102 Carbon Dioxide 25 Anion Gap 9 BUN 14 D Creatinine 0.5 L Creat Clearance w eGFR > 60 POC Glucometer 317 Random Glucose 192 H D Calcium 8.5 Total Bilirubin 15.2 H* AST 188 H ALT 68 Alkaline Phosphatase 655 H D Total Protein 5.9 L Albumin 1.7 L Blood Type Antibody Screen Crossmatch Problem List - Problems (1) Cholangitis Code(s): K83.0 - CHOLANGITIS (2) Hyperglycemia Code(s): R73.9 - HYPERGLYCEMIA, UNSPECIFIED (3) Jaundice Code(s): R17 - UNSPECIFIED JAUNDICE (4) Sepsis Code(s): A41.9 - SEPSIS, UNSPECIFIED ORGANISM Qualifiers: Sepsis type: sepsis due to unspecified organism Qualified Code(s): A41.9 - Sepsis, unspecified organism (5) Anemia Code(s): D64.9 - ANEMIA, UNSPECIFIED (6) Cerebral palsy Code(s): G80.9 - CEREBRAL PALSY, UNSPECIFIED Qualifiers: Cerebral palsy type: unspecified type Qualified Code(s): G80.9 - Cerebral palsy, unspecified (7) Chronic respiratory failure Code(s): J96.10 - CHRONIC RESPIRATORY FAILURE, UNSP W HYPOXIA OR HYPERCAPNIA (8) Dehydration Code(s): E86.0 - DEHYDRATION (9) Hypothyroid Code(s): E03.9 - HYPOTHYROIDISM, UNSPECIFIED (10) Positive blood cultures Code(s): R78.81 - BACTEREMIA (11) Respirator dependence Code(s): Z99.11 - DEPENDENCE ON RESPIRATOR [VENTILATOR] STATUS Assessment/Plan Long discussion with her 2 sisters. The oldest sibling has been making all Haley's medical decisions. She has decided with the agreement of their 3rd sister that comfort measures are most appropriate at this point. Will stop all meds / blood draws / diagnostics MS ip for comfort. Dr Martin Problem List - Problems (1) Cholangitis Code(s): K83.0 - CHOLANGITIS (2) Hyperglycemia Code(s): R73.9 - HYPERGLYCEMIA, UNSPECIFIED (3) Jaundice Code(s): R17 - UNSPECIFIED JAUNDICE (4) Sepsis Code(s): A41.9 - SEPSIS, UNSPECIFIED ORGANISM Qualifiers: Sepsis type: sepsis due to unspecified organism Qualified Code(s): A41.9 - Sepsis, unspecified organism (5) Anemia Code(s): D64.9 - ANEMIA, UNSPECIFIED (6) Cerebral palsy Code(s): G80.9 - CEREBRAL PALSY, UNSPECIFIED Qualifiers: Cerebral palsy type: unspecified type Qualified Code(s): G80.9 - Cerebral palsy, unspecified (7) Chronic respiratory failure Code(s): J96.10 - CHRONIC RESPIRATORY FAILURE, UNSP W HYPOXIA OR HYPERCAPNIA Qualifiers: Respiratory failure complication: unspecified whether with hypoxia or hypercapnia Qualified Code(s): J96.10 - Chronic respiratory failure, unspecified whether with hypoxia or hypercapnia (8) Dehydration Code(s): E86.0 - DEHYDRATION (9) Hypothyroid Code(s): E03.9 - HYPOTHYROIDISM, UNSPECIFIED (10) Positive blood cultures Code(s): R78.81 - BACTEREMIA (11) Respirator dependence Code(s): Z99.11 - DEPENDENCE ON RESPIRATOR [VENTILATOR] STATUS
[2016-10-02] MEDS: MORPHINE 100 MG in SODIUM CHLORIDE 98 ML IVPB SCH (17:16)
[2016-10-02] MEDS ORDERED: CEFAZOLIN (PRE-DOCKED) 50 ML IVPB SCH (18:00)
--- NOTE | 2016-10-03 10:20 | PN ---
Problem List - Problems (1) Cholangitis Code(s): K83.0 - CHOLANGITIS (2) Sepsis Code(s): A41.9 - SEPSIS, UNSPECIFIED ORGANISM Qualifiers: Sepsis type: sepsis due to unspecified organism Qualified Code(s): A41.9 - Sepsis, unspecified organism (3) Cerebral palsy Code(s): G80.9 - CEREBRAL PALSY, UNSPECIFIED Qualifiers: Cerebral palsy type: unspecified type Qualified Code(s): G80.9 - Cerebral palsy, unspecified (4) Chronic respiratory failure Code(s): J96.10 - CHRONIC RESPIRATORY FAILURE, UNSP W HYPOXIA OR HYPERCAPNIA Qualifiers: Respiratory failure complication: unspecified whether with hypoxia or hypercapnia Qualified Code(s): J96.10 - Chronic respiratory failure, unspecified whether with hypoxia or hypercapnia (5) Jaundice Code(s): R17 - UNSPECIFIED JAUNDICE
--- NOTE | 2016-10-03 10:24 | PN ---
Progress Note, Physician History of Present Illness: JAUNDICE IN BED ON VENT - Current Medication List Current Medications: Active Medications Morphine Sulfate 100 mg/ (Sodium Chloride) 100 mls @ 3 mls/hr IVPB TITR [facility]; 3 MG/HR PRN Reason: Protocol Last Admin: 10/02/16 17:16 Dose: 3 mls/hr - Objective Vital Signs: Vital Signs Temperature 99.1 F 10/03/16 06:00 Pulse Rate 89 10/03/16 06:00 Respiratory Rate 22 10/03/16 07:46 Blood Pressure 90/45 10/03/16 06:00 O2 Sat by Pulse Oximetry (%) 100 10/01/16 21:00 Cardiovascular: Yes: S1, S2 Respiratory: Yes: Mechanically Ventilated Gastrointestinal: Yes: Distention Labs: CBC, BMP 10/02/16 08:40 10/02/16 08:40 INR, PTT INR 1.41 (0.82-1.09) H 09/30/16 06:37 Problem List - Problems (1) Cholangitis Assessment/Plan: OFF IV ABX COMFORT MEASURES Code(s): K83.0 - CHOLANGITIS (2) Sepsis Assessment/Plan: COMFORT MEASURES Code(s): A41.9 - SEPSIS, UNSPECIFIED ORGANISM Qualifiers: Sepsis type: sepsis due to unspecified organism Qualified Code(s): A41.9 - Sepsis, unspecified organism (3) Cerebral palsy Code(s): G80.9 - CEREBRAL PALSY, UNSPECIFIED Qualifiers: Cerebral palsy type: unspecified type Qualified Code(s): G80.9 - Cerebral palsy, unspecified (4) Chronic respiratory failure Assessment/Plan: VENT SETTING SAME ON MORPHINE Code(s): J96.10 - CHRONIC RESPIRATORY FAILURE, UNSP W HYPOXIA OR HYPERCAPNIA Qualifiers: Respiratory failure complication: unspecified whether with hypoxia or hypercapnia Qualified Code(s): J96.10 - Chronic respiratory failure, unspecified whether with hypoxia or hypercapnia (5) Jaundice Code(s): R17 - UNSPECIFIED JAUNDICE Assessment/Plan D/W DR BRAY--FAMILY WANT COMFORT CARE ON MORPHINE
--- NOTE | 2016-10-03 13:41 | PN ---
Progress Note (short form) - Note Progress Note: Patient comfortable on morphine drip Discussed with nursing [employer] supervisor and trimming caser Apparently other paperwork necessary for compassionate extubation Will need to d/w palliative care nurse tomorrow. Continue comfort care ADDENDUM: 2 PM Advised by nursing [employer] supervisor Elisa that patient needs further evaluation and a MOLST form needs to be completed before withholding care. This will be done tomorrow. Until then, medical management to be re-instituted. Palliative care nurse made aware.
[2016-10-03 16:01] LABS: MCH 26.8 pg (25.7-33.7); MCHC 31.2 g/dl (32.0-36.0); MEAN PLT VOLUME 8.2 fl (7.5-11.1); PLATELET COUNT 253 K/MM3 (134-434); RDW 22.1 % (11.6-15.6); WHITE BLOOD COUNT 8.2 K/mm3 (4.0-10.0)
[2016-10-03 16:14] LABS: INR 3.86 (0.82-1.09); PROTHROMBIN TIME (PATIENT) 43.7 SEC (9.98-11.88)
[2016-10-03 16:16] LABS: ACTIVATED PTT 53.6 SECONDS (26.9-34.4)
--- NOTE | 2016-10-03 16:29 | PN ---
Progress Note (short form) - Note Progress Note: Per medical record, patient's family wants comfort care/palliative care Continue comfort care No surgical intervention Thank you Problem List - Problems (1) Cholangitis Code(s): K83.0 - CHOLANGITIS (2) Jaundice Code(s): R17 - UNSPECIFIED JAUNDICE (3) Sepsis Code(s): A41.9 - SEPSIS, UNSPECIFIED ORGANISM Qualifiers: Sepsis type: sepsis due to unspecified organism Qualified Code(s): A41.9 - Sepsis, unspecified organism (4) Cerebral palsy Code(s): G80.9 - CEREBRAL PALSY, UNSPECIFIED Qualifiers: Cerebral palsy type: unspecified type Qualified Code(s): G80.9 - Cerebral palsy, unspecified (5) Chronic respiratory failure Code(s): J96.10 - CHRONIC RESPIRATORY FAILURE, UNSP W HYPOXIA OR HYPERCAPNIA Qualifiers: Respiratory failure complication: unspecified whether with hypoxia or hypercapnia Qualified Code(s): J96.10 - Chronic respiratory failure, unspecified whether with hypoxia or hypercapnia
[2016-10-03 16:34] LABS: ALBUMIN 1.8 g/dl (3.4-5.0); ALK PHOS 769 U/L (45-117); ANION GAP 13 (8-16); BILIRUBIN,TOTAL 14.8 mg/dL (0.2-1.0); CALCIUM 8.8 mg/dL (8.5-10.1); CO2 25 mmol/L (21-32); CREATININE 0.6 mg/dL (0.55-1.02); GLUCOSE,RANDOM 218 mg/dL (74-106); SGOT/AST 173 U/L (15-37); SGPT/ALT 75 U/L (12-78); TOT PROT 6.2 g/dl (6.4-8.2)
[2016-10-03 16:36] LABS: ANISOCYTOSIS 2+; HYPOCHROMIA 1+; METAMYELOCYTE 3 % (0-2); MICROCYTOSIS 1+; PLATELET ESTIMATE ADEQUATE (NORMAL); POLYCHROMASIA 1+
[2016-10-03] MEDS: D5-1/2NS+20 MEQ KCL - 1,000 ML IV SCH (16:42)
[2016-10-03] MEDS: CEFTRIAXONE 50 ML IVPB SCH (16:43)
[2016-10-03] MEDS: MORPHINE 100 MG in SODIUM CHLORIDE 98 ML IVPB SCH (17:35)
[2016-10-03] MEDS ORDERED: PIPERACILLIN/TAZOB 3.375 GM 3.375 GM in DEXTROSE 5%-WATER - 50 ML IVPB SCH (18:00)
[2016-10-03] MEDS: ACETAMINOPHEN 1000 MG/100 ML VIAL (NON FORMULARY) IVPB PRN (18:31)
[2016-10-03] MEDS ORDERED: INSULIN DETEMIR 100 UNITS/ML MDV SQ SCH (22:00)
[2016-10-03] MEDS ORDERED: INSULIN (NOVOLOG) ASPART 100 UNITS/ML 10ML VIAL SQ ONE (22:45)
[2016-10-04] MEDS: ACETAMINOPHEN 1000 MG/100 ML VIAL (NON FORMULARY) IVPB PRN (00:26)
[2016-10-04 08:11] LABS: MCH 27.9 pg (25.7-33.7); MCHC 33.5 g/dl (32.0-36.0); MEAN CELL VOLUME 83.2 fl (80-96); MEAN PLT VOLUME 7.9 fl (7.5-11.1); PLATELET COUNT 214 K/MM3 (134-434); RDW 19.4 % (11.6-15.6); WHITE BLOOD COUNT 7.5 K/mm3 (4.0-10.0)
--- NOTE | 2016-10-04 08:15 | PN ---
Progress Note, Physician History of Present Illness: JAUNDICE IN BED ON VENT - Current Medication List Current Medications: Active Medications Morphine Sulfate 100 mg/ (Sodium Chloride) 100 mls @ 3 mls/hr IVPB TITR [facility]; 3 MG/HR PRN Reason: Protocol Last Admin: 10/03/16 17:35 Dose: 3 mls/hr Potassium Chloride/Dextrose/Sod Cl (D5-1/2ns+20 Meq Kcl -) 1,000 mls @ 83 mls/ hr IV ASDIR [facility] Last Admin: 10/03/16 16:42 Dose: 83 mls/hr Ceftriaxone Sodium (Rocephin 1gm Ivpb (Pre-Docked)) 50 mls @ 100 mls/hr IVPB DAILY [facility] Last Admin: 10/03/16 16:43 Dose: 100 mls/hr Insulin Detemir (Levemir Vial) 20 units SQ HS [facility] PRN Reason: Protocol Last Admin: 10/03/16 21:50 Dose: 20 units Levothyroxine Sodium (Synthroid -) 25 mcg GT DAILY [facility] Stop: 10/09/16 23:59 - Objective Vital Signs: Vital Signs Temperature 98.5 F 10/04/16 06:00 Pulse Rate 81 10/04/16 06:00 Respiratory Rate 14 10/04/16 06:00 Blood Pressure 99/52 10/04/16 06:00 O2 Sat by Pulse Oximetry (%) 100 10/03/16 11:00 Cardiovascular: Yes: S1, S2 Respiratory: Yes: Mechanically Ventilated Gastrointestinal: Yes: Normal Bowel Sounds, Soft Labs: INR, PTT INR 3.86 (0.82-1.09) H D 10/03/16 15:45 Problem List - Problems (1) Cholangitis Assessment/Plan: ON IV ABX COMFORT MEASURES Code(s): K83.0 - CHOLANGITIS (2) Sepsis Assessment/Plan: COMFORT MEASURES TO BE DISCUSSED Code(s): A41.9 - SEPSIS, UNSPECIFIED ORGANISM Qualifiers: Sepsis type: sepsis due to unspecified organism Qualified Code(s): A41.9 - Sepsis, unspecified organism (3) Cerebral palsy Assessment/Plan: MONITOR Code(s): G80.9 - CEREBRAL PALSY, UNSPECIFIED Qualifiers: Cerebral palsy type: unspecified type Qualified Code(s): G80.9 - Cerebral palsy, unspecified (4) Chronic respiratory failure Assessment/Plan: VENT SETTING SAME ON MORPHINE Code(s): J96.10 - CHRONIC RESPIRATORY FAILURE, UNSP W HYPOXIA OR HYPERCAPNIA Qualifiers: Respiratory failure complication: unspecified whether with hypoxia or hypercapnia Qualified Code(s): J96.10 - Chronic respiratory failure, unspecified whether with hypoxia or hypercapnia (5) Jaundice Assessment/Plan: F/U JAMILA-- W/U ORDERED Code(s): R17 - UNSPECIFIED JAUNDICE
[2016-10-04 08:54] LABS: ALBUMIN 1.6 g/dl (3.4-5.0); ALK PHOS 597 U/L (45-117); ANION GAP 12 (8-16); BILIRUBIN,TOTAL 12.2 mg/dL (0.2-1.0); CALCIUM 8.7 mg/dL (8.5-10.1); CO2 24 mmol/L (21-32); CREATININE 0.5 mg/dL (0.55-1.02); GLUCOSE,RANDOM 77 mg/dL (74-106); SGOT/AST 115 U/L (15-37); SGPT/ALT 57 U/L (12-78); TOT PROT 5.7 g/dl (6.4-8.2)
[2016-10-04] MEDS ORDERED: PHYTONADIONE 10 MG/1 ML AMP IVPB ONE (09:00)
[2016-10-04] MEDS: CEFTRIAXONE 50 ML IVPB SCH ×2 (10:00→16:00)
[2016-10-04 12:00] LABS: METAMYELOCYTE 2 % (0-2); PLATELET ESTIMATE ADEQUATE (NORMAL)
[2016-10-04] MEDS: LEVOTHYROXINE NA 25 MCG TABLET (FP) GT SCH (12:00)
[2016-10-04] MEDS ORDERED: INSULIN DETEMIR 100 UNITS/ML MDV SQ SCH (12:42)
[2016-10-04] MEDS: D5-1/2NS+20 MEQ KCL - 1,000 ML IV SCH ×2 (14:15→18:24)
--- NOTE | 2016-10-04 15:56 | PN ---
Progress Note (short form) - Note Progress Note: Palliative Care Patient with underlying Developmental Disability and Ventilator Dependence comes [facility] the hospital from [facility] [place] with sepsis and marked jaundice. There were 2 previous admissions to [facility] in 2015 and two in 2013. Based on her current clinical condition the surrogate who is her actively involved sister has requested the patient receive comfort care which would also include parenteral pain medication. Our palliative care nurse has made the family and attending MD's aware of the legal requirement check list for people with DD for whom the decision for removal of life sustaining treatment is to be reviewed and completed.If they concur with both of the conditions listed on the form they may list their reasons and sign the form. The local office of the Commissioner of [place] has been notified and they have been made aware that we have no certified medical person here that is qualified to declare the patient without capacity so they will either appoint someone if able. They also informed our nurse to notify Mental Health legal services which she has done. There is a 48 hr window for decision making with the Dept. but the form will be faxed as soon as possible as the patient is critically ill. Veto Stewart MD
[2016-10-04] MEDS ORDERED: ACETAMINOPHEN 650 MG/20.3 ML ORAL SOLUTION (CUPS) GT PRN (16:09)
--- NOTE | 2016-10-04 16:33 | PN ---
GI Progress Note Subjective: Unresponsive (baseline state) All meds resumed as per requirements Deeply jaundiced - Objective Vital Signs: Vital Signs Temperature 100.4 F H 10/04/16 14:48 Pulse Rate 103 H 10/04/16 14:48 Respiratory Rate 14 10/04/16 14:48 Blood Pressure 124/67 10/04/16 14:48 O2 Sat by Pulse Oximetry (%) 100 10/04/16 09:59 Constitutional: Well Nourished Eyes: Yes: Sclera Icterus Cardiovascular: Yes: Tachycardia Respiratory: Yes: CTA Bilaterally, Mechanically Ventilated ...Auscultate: Yes: Hypoactive Bowel Sounds ...Palpate: Yes: Soft (softly distended) Neurological: Yes: Unresponsive Labs: CBC, BMP 10/04/16 07:00 10/04/16 07:00 INR, PTT INR 3.86 (0.82-1.09) H D 10/03/16 15:45 Assessment/Plan Events noted. Erica Stewart's note read and appreciated. Discussed with Conchita Pitts-assistance appreciated. Await 3rd green party evaluation. Management as before. Labs improving-may be passing stone.
[2016-10-04] MEDS: MORPHINE 100 MG in SODIUM CHLORIDE 98 ML IVPB SCH (17:23)
[2016-10-04] MEDS: ACETAMINOPHEN 650 MG/20.3 ML ORAL SOLUTION (CUPS) GT PRN (19:08)
--- NOTE | 2016-10-04 23:10 | PN ---
Progress Note (short form) - Note Progress Note: unresponsive,on respiratory support,blood sugars improving Abnormal Lab Results 09/30/16 10/03/16 10/04/16 06:37 15:45 07:00 RBC 2.64 L Hgb 7.4 L D Hct 22.0 L RDW 19.4 H D Nucleated RBCs 1 H Potassium Creatinine Total Bilirubin AST Alkaline Phosphatase Total Protein Albumin Crossmatch See Detail See Detail 10/04/16 07:00 RBC Hgb Hct RDW Nucleated RBCs Potassium 3.3 L Creatinine 0.5 L Total Bilirubin 12.2 H AST 115 H D Alkaline Phosphatase 597 H D Total Protein 5.7 L Albumin 1.6 L Crossmatch Laboratory Results - last 24 hr 09/30/16 10/01/16 10/03/16 06:37 18:48 15:45 WBC RBC Hgb Hct MCV MCHC RDW Plt Count MPV Neutrophils % Lymphocytes % Monocytes % Metamyelocytes Myelocytes Nucleated RBCs Differential Comment Platelet Estimate Sodium Potassium Chloride Carbon Dioxide Anion Gap BUN Creatinine Creat Clearance w eGFR POC Glucometer 424 Random Glucose Calcium Total Bilirubin AST ALT Alkaline Phosphatase Total Protein Albumin Blood Type O POSITIVE Antibody Screen Negative Crossmatch See Detail See Detail 10/04/16 10/04/16 10/04/16 05:52 07:00 07:00 WBC 7.5 RBC 2.64 L Hgb 7.4 L D Hct 22.0 L MCV 83.2 MCHC 33.5 RDW 19.4 H D Plt Count 214 MPV 7.9 Neutrophils % 48.0 Lymphocytes % 40.0 D Monocytes % 8.0 Metamyelocytes 2 D Myelocytes 2 D Nucleated RBCs 1 H Differential Comment Manual diff done Platelet Estimate Adequate Sodium 137 Potassium 3.3 L Chloride 101 Carbon Dioxide 24 Anion Gap 12 BUN 11 Creatinine 0.5 L Creat Clearance w eGFR > 60 POC Glucometer 100 Random Glucose 77 D Calcium 8.7 Total Bilirubin 12.2 H AST 115 H D ALT 57 D Alkaline Phosphatase 597 H D Total Protein 5.7 L Albumin 1.6 L Blood Type Antibody Screen Crossmatch 10/04/16 22:47 WBC RBC Hgb Hct MCV MCHC RDW Plt Count MPV Neutrophils % Lymphocytes % Monocytes % Metamyelocytes Myelocytes Nucleated RBCs Differential Comment Platelet Estimate Sodium Potassium Chloride Carbon Dioxide Anion Gap BUN Creatinine Creat Clearance w eGFR POC Glucometer 174 Random Glucose Calcium Total Bilirubin AST ALT Alkaline Phosphatase Total Protein Albumin Blood Type Antibody Screen Crossmatch plan:decrease levemir dose 15 units hs hold if sugar below 150mg/dl continue bgm scale Problem List - Problems (1) Diabetes mellitus, insulin dependent (IDDM), uncontrolled Code(s): E10.65 - TYPE 1 DIABETES MELLITUS WITH HYPERGLYCEMIA Qualifiers: Diabetes mellitus complication detail: with other neurological complication
[2016-10-05] MEDS: D5-1/2NS+20 MEQ KCL - 1,000 ML IV SCH ×2 (07:07→18:03)
[2016-10-05 08:23] LABS: EOSINOPHIL 1.9 % (0-4.5); MCH 27.9 pg (25.7-33.7); MCHC 33.5 g/dl (32.0-36.0); MEAN CELL VOLUME 83.2 fl (80-96); MEAN PLT VOLUME 8.5 fl (7.5-11.1); NEUTROPHILS 58.3 % (42.8-82.8); PLATELET COUNT 252 K/MM3 (134-434); RDW 17.5 % (11.6-15.6); WHITE BLOOD COUNT 8.1 K/mm3 (4.0-10.0)
[2016-10-05 08:42] LABS: ALBUMIN 1.7 g/dl (3.4-5.0); ANION GAP 12 (8-16); BILIRUBIN,TOTAL 8.4 mg/dL (0.2-1.0); CALCIUM 8.5 mg/dL (8.5-10.1); CO2 22 mmol/L (21-32); CREATININE 0.5 mg/dL (0.55-1.02); GLUCOSE,RANDOM 106 mg/dL (74-106); SGPT/ALT 42 U/L (12-78); TOT PROT 6.1 g/dl (6.4-8.2)
[2016-10-05 08:43] LABS: ALK PHOS 502 U/L (45-117)
[2016-10-05 08:44] LABS: SGOT/AST 73 U/L (15-37)
--- NOTE | 2016-10-05 09:07 | PN ---
Progress Note (short form) - Note Progress Note: asked to f/u by PMD remains unresponsive (baseline) trach to vent Vital Signs Period Temp Pulse Resp BP Sys/Hernandez Pulse Ox Last 24 Hr 98.5 F-100.7 F 72-103 14-16 92-124/42-75 98-100 trach to vent cor-rrr lungs clear abd firm +GT ext no edema CBC, BMP 10/05/16 07:30 10/05/16 07:30 Microbiology 09/30/16 06:37 Blood - Peripheral Venous Blood Culture - Final NO GROWTH AFTER 5 DAYS INCUBATION 10/01/16 04:17 Sputum - Endotrachea Suction/Ventilator Gram Stain - Final 10/01/16 04:17 Sputum - Endotrachea Suction/Ventilator Sputum Culture - Final Acinetobacter Baumannii/Haemol 09/30/16 06:37 Blood - Peripheral Venous Blood Culture - Final Klebsiella Pneumoniae 09/30/16 07:23 Urine - Urine - Catheterized Urine Culture - Final NO GROWTH OBTAINED cxray no infiltrate a/p Klebsiella bacteremia- improving bilirubin- ?passed stone, gi f/u ongoing can switch to cefazolin based on sensitivities day #4 antibiotics no signs pneumonia- 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
--- NOTE | 2016-10-05 10:03 | PN ---
Progress Note, Physician Chief Complaint: Fever of Unknown origin. History of Present Illness: Patient came in with FUO, work up showed elevated Billirubin--> Obstructive Cholecystitis. She has been on IV abx. Her sister and half sister has agreed the patient to be terminally weaned because of poor prognosis. Awaiting response from [employer] [facility] [employer] [facility] for approval. - Current Medication List Current Medications: Active Medications Acetaminophen (Tylenol Oral Solution -) 650 mg GT Q4HPO PRN PRN Reason: FEVER OR PAIN Last Admin: 10/04/16 19:08 Dose: 650 mg Morphine Sulfate 100 mg/ (Sodium Chloride) 100 mls @ 3 mls/hr IVPB TITR ADDISON; 3 MG/HR PRN Reason: Protocol Last Admin: 10/04/16 17:23 Dose: 3 mls/hr Potassium Chloride/Dextrose/Sod Cl (D5-1/2ns+20 Meq Kcl -) 1,000 mls @ 83 mls/ hr IV ASDIR ADDISON Last Admin: 10/05/16 07:07 Dose: 83 mls/hr Cefazolin Sodium/Dextrose (Ancef 2 Gm Premixed Ivpb -) 50 mls @ 100 mls/hr IVPB Q8H-IV ADDISON Insulin Detemir (Levemir Vial) 15 units SQ HS ADDISON PRN Reason: Protocol Levothyroxine Sodium (Synthroid -) 25 mcg GT DAILY ADDISON Stop: 10/09/16 23:59 Last Admin: 10/04/16 12:00 Dose: 25 mcg - Objective Vital Signs: Vital Signs Temperature 98.6 F 10/05/16 06:59 Pulse Rate 89 10/05/16 06:59 Respiratory Rate 14 10/05/16 06:59 Blood Pressure 124/73 10/05/16 06:59 O2 Sat by Pulse Oximetry (%) 98 10/04/16 22:00 Constitutional: Yes: No Distress, Calm Cardiovascular: Yes: Regular Rate and Rhythm, Tachycardia, S1, S2 Respiratory: Yes: Mechanically Ventilated Gastrointestinal: Yes: Normal Bowel Sounds Edema: No Integumentary: Yes: WNL Psychiatric: Yes: Alert (opens eyes to name and touch) Labs: CBC, BMP 10/05/16 07:30 10/05/16 07:30 INR, PTT INR 3.86 (0.82-1.09) H D 10/03/16 15:45 Problem List - Problems (1) Hyperglycemia Code(s): R73.9 - HYPERGLYCEMIA, UNSPECIFIED (2) Cerebral palsy Code(s): G80.9 - CEREBRAL PALSY, UNSPECIFIED Qualifiers: Cerebral palsy type: unspecified type Qualified Code(s): G80.9 - Cerebral palsy, unspecified (3) Chronic respiratory failure Code(s): J96.10 - CHRONIC RESPIRATORY FAILURE, UNSP W HYPOXIA OR HYPERCAPNIA Qualifiers: Respiratory failure complication: unspecified whether with hypoxia or hypercapnia Qualified Code(s): J96.10 - Chronic respiratory failure, unspecified whether with hypoxia or hypercapnia (4) Fever Code(s): R50.9 - FEVER, UNSPECIFIED (5) Cholangitis Code(s): K83.0 - CHOLANGITIS (6) Jaundice Assessment/Plan: Improved. Code(s): R17 - UNSPECIFIED JAUNDICE (7) Anemia Assessment/Plan: Improved. Code(s): D64.9 - ANEMIA, UNSPECIFIED Assessment/Plan Awaiting response from [facility]. MOL[facility] form filled out by sister Shyanne. Overall gradually improving with IV abx. Palliative Care on board.
[2016-10-05] MEDS: LEVOTHYROXINE NA 25 MCG TABLET (FP) GT SCH (10:06)
[2016-10-05 11:39] LABS: HIV 1 & 2 AB NEGATIVE; HIV 1 AGp24 NEGATIVE
[2016-10-05] MEDS: CEFAZOLIN 2 GM/D5W 50 ML IVPB SCH ×2 (11:41→18:07)
--- NOTE | 2016-10-05 16:17 | PN ---
GI Progress Note Subjective: Patient clinically unchanged. Low-grade temp - Objective Vital Signs: Vital Signs Temperature 99.7 F H 10/05/16 15:34 Pulse Rate 84 10/05/16 15:34 Respiratory Rate 14 10/05/16 15:34 Blood Pressure 124/77 10/05/16 15:34 O2 Sat by Pulse Oximetry (%) 98 10/04/16 22:00 Constitutional: Well Nourished Cardiovascular: Yes: Regular Rate and Rhythm Respiratory: Yes: CTA Bilaterally Gastrointestinal Inspection: Yes: Distention ...Auscultate: Yes: Hypoactive Bowel Sounds ...Palpate: Yes: Firm/Rigid ...Percussion: Yes: Tympanitic Neurological: Yes: Aphasia, Pre-Existing Deficit Labs: CBC, BMP 10/05/16 07:30 10/05/16 07:30 INR, PTT INR 3.86 (0.82-1.09) H D 10/03/16 15:45 Hepatic Panel Total Bilirubin 8.4 mg/dL (0.2-1.0) H D 10/05/16 07:30 AST 73 U/L (15-37) H D 10/05/16 07:30 ALT 42 U/L (12-78) D 10/05/16 07:30 Alkaline Phosphatase 502 U/L (45-117) H 10/05/16 07:30 Albumin 1.7 g/dl (3.4-5.0) L 10/05/16 07:30 Assessment/Plan Events noted. Dr Stewart's note read and appreciated. Discussed with Conchita Pitts-assistance appreciated. Still Await 3rd republic[employer] evaluation. Management as before. Labs improving-may be passing stone. Overall prognosis poor
[2016-10-05] MEDS: MORPHINE 100 MG in SODIUM CHLORIDE 98 ML IVPB SCH ×2 (17:15→17:51)
[2016-10-05] MEDS ORDERED: PT OWN MED DRAWER 7, Y5N ONE (22:00)
[2016-10-05] MEDS: INSULIN DETEMIR 100 UNITS/ML MDV SQ SCH (22:45)
[2016-10-05] MEDS: ZINC OXIDE 20% TOPICAL OINTMENT 30 GM TUBE TP SCH (22:45)
[2016-10-06] MEDS ORDERED: PT OWN MED DRAWER 7, Y5N ONE (01:13)
[2016-10-06] MEDS: CEFAZOLIN 2 GM/D5W 50 ML IVPB SCH ×3 (01:18→17:48)
[2016-10-06 06:06] LABS: HEP B SURFACE AB Non Reactive (.)
[2016-10-06] MEDS: D5-1/2NS+20 MEQ KCL - 1,000 ML IV SCH ×2 (07:00→18:20)
--- NOTE | 2016-10-06 10:24 | PN ---
Progress Note (short form) - Note Progress Note: ID GI note reviewed Now on Cefazolin for bacteremia Selected Entries 10/06/16 09:44 Temperature 98 F Pulse Rate 84 Respiratory 14 Rate Blood Pressure 108/64 Vent dependent Jaundiced Distended abd Microbiology 09/30/16 06:37 Blood - Peripheral Venous Blood Culture - Final Klebsiella Pneumoniae Laboratory Tests 10/05/16 10/05/16 07:30 07:30 WBC 8.1 Hgb 10.4 L D Hct 30.9 L D Plt Count 252 Total Bilirubin 8.4 H D AST 73 H D Alkaline Phosphatase 502 H Assessment Obstructive jaundice Klebsiella bacteremia Plan Antibiotics ? palliative per palliative care team Aubree Problem List - Problems (1) Sepsis Code(s): A41.9 - SEPSIS, UNSPECIFIED ORGANISM Qualifiers: Sepsis type: sepsis due to unspecified organism Qualified Code(s): A41.9 - Sepsis, unspecified organism (2) Diabetes Code(s): E11.9 - TYPE 2 DIABETES MELLITUS WITHOUT COMPLICATIONS (3) Cholangitis Code(s): K83.0 - CHOLANGITIS (4) Bacteremia due to Klebsiella pneumoniae Code(s): R78.81 - BACTEREMIA
[2016-10-06] MEDS: LEVOTHYROXINE NA 25 MCG TABLET (FP) GT SCH (11:29)
[2016-10-06] MEDS: ZINC OXIDE 20% TOPICAL OINTMENT 30 GM TUBE TP SCH ×2 (11:30→22:24)
--- NOTE | 2016-10-06 12:32 | PN ---
Progress Note, Physician Chief Complaint: Fever of Unknown origin. History of Present Illness: Patient came in with FUO, work up showed elevated Billirubin--> Obstructive Cholecystitis. She has been on IV abx. Her sister and half sister has agreed the patient to be terminally weaned because of poor prognosis. Awaiting response from [facility] [employer] [facility] for approval. - Current Medication List Current Medications: Active Medications Acetaminophen (Tylenol Oral Solution -) 650 mg GT Q4HPO PRN PRN Reason: FEVER OR PAIN Last Admin: 10/04/16 19:08 Dose: 650 mg Morphine Sulfate 100 mg/ (Sodium Chloride) 100 mls @ 3 mls/hr IVPB TITR ADDISON; 3 MG/HR PRN Reason: Protocol Last Admin: 10/05/16 17:51 Dose: 3 mls/hr Potassium Chloride/Dextrose/Sod Cl (D5-1/2ns+20 Meq Kcl -) 1,000 mls @ 83 mls/ hr IV ASDIR ADDISON Last Admin: 10/06/16 07:00 Dose: 83 mls/hr Cefazolin Sodium/Dextrose (Ancef 2 Gm Premixed Ivpb -) 50 mls @ 100 mls/hr IVPB Q8H-IV ADDISON Last Admin: 10/06/16 11:30 Dose: 100 mls/hr Insulin Detemir (Levemir Vial) 15 units SQ HS ADDISON PRN Reason: Protocol Last Admin: 10/05/16 22:45 Dose: 15 units Levothyroxine Sodium (Synthroid -) 25 mcg GT DAILY ADDISON Stop: 10/09/16 23:59 Last Admin: 10/06/16 11:29 Dose: 25 mcg Multi-Ingredient Ointment (Zinc Oxide) 1 applic TP BID ADDISON Last Admin: 10/06/16 11:30 Dose: 1 applic - Objective Vital Signs: Vital Signs Temperature 98 F 10/06/16 09:44 Pulse Rate 84 10/06/16 09:44 Respiratory Rate 14 10/06/16 10:00 Blood Pressure 108/64 10/06/16 09:44 O2 Sat by Pulse Oximetry (%) 100 10/05/16 22:40 Constitutional: Yes: No Distress, Calm Respiratory: Yes: Mechanically Ventilated Gastrointestinal: Yes: Normal Bowel Sounds, Distention Genitourinary: Yes: Incontinence Musculoskeletal: Yes: Joint Stiffness Neurological: Yes: Alert (responds to her name), Aphasia Labs: CBC, BMP 10/05/16 07:30 10/05/16 07:30 INR, PTT INR 3.86 (0.82-1.09) H D 10/03/16 15:45 Problem List - Problems (1) Hyperglycemia Assessment/Plan: Target Blood glucose below 200 mg/dl. May run high due to acute infectious process. Code(s): R73.9 - HYPERGLYCEMIA, UNSPECIFIED (2) Cerebral palsy Code(s): G80.9 - CEREBRAL PALSY, UNSPECIFIED Qualifiers: Cerebral palsy type: unspecified type Qualified Code(s): G80.9 - Cerebral palsy, unspecified (3) Chronic respiratory failure Code(s): J96.10 - CHRONIC RESPIRATORY FAILURE, UNSP W HYPOXIA OR HYPERCAPNIA Qualifiers: Respiratory failure complication: unspecified whether with hypoxia or hypercapnia Qualified Code(s): J96.10 - Chronic respiratory failure, unspecified whether with hypoxia or hypercapnia (4) Fever Assessment/Plan: Urine and blood cultures Tylenol for fever over 100.0 ID consult Code(s): R50.9 - FEVER, UNSPECIFIED (5) Cholangitis Code(s): K83.0 - CHOLANGITIS (6) Jaundice Assessment/Plan: Improved. Code(s): R17 - UNSPECIFIED JAUNDICE (7) Anemia Assessment/Plan: Improved. Code(s): D64.9 - ANEMIA, UNSPECIFIED Assessment/Plan Awaiting response from [facility]. MOL[facility] form filled out by sister Shyanne. Overall gradually improving with IV abx. Palliative Care on board.
[2016-10-06] MEDS: MORPHINE 100 MG in SODIUM CHLORIDE 98 ML IVPB SCH (18:06)
[2016-10-06] MEDS: INSULIN DETEMIR 100 UNITS/ML MDV SQ SCH (22:24)
[2016-10-07] MEDS: CEFAZOLIN 2 GM/D5W 50 ML IVPB SCH ×3 (01:45→17:56)
[2016-10-07] MEDS: D5-1/2NS+20 MEQ KCL - 1,000 ML IV SCH ×2 (06:11→17:56)
--- NOTE | 2016-10-07 10:11 | PN ---
Progress Note, Physician Chief Complaint: Fever of Unknown origin. History of Present Illness: Patient came in with FUO, work up showed elevated Billirubin--> Obstructive Cholecystitis. She has been on IV abx. Her sister and half sister has agreed the patient to be terminally weaned because of poor prognosis. Awaiting response from [facility] [employer] [facility] for approval. - Current Medication List Current Medications: Active Medications Acetaminophen (Tylenol Oral Solution -) 650 mg GT Q4HPO PRN PRN Reason: FEVER OR PAIN Last Admin: 10/04/16 19:08 Dose: 650 mg Morphine Sulfate 100 mg/ (Sodium Chloride) 100 mls @ 3 mls/hr IVPB TITR ADDISON; 3 MG/HR PRN Reason: Protocol Last Admin: 10/06/16 18:06 Dose: 3 mls/hr Potassium Chloride/Dextrose/Sod Cl (D5-1/2ns+20 Meq Kcl -) 1,000 mls @ 83 mls/ hr IV ASDIR ADDISON Last Admin: 10/07/16 06:11 Dose: 83 mls/hr Cefazolin Sodium/Dextrose (Ancef 2 Gm Premixed Ivpb -) 50 mls @ 100 mls/hr IVPB Q8H-IV ADDISON Last Admin: 10/07/16 01:45 Dose: 100 mls/hr Insulin Detemir (Levemir Vial) 15 units SQ HS ADDISON PRN Reason: Protocol Last Admin: 10/06/16 22:24 Dose: 15 units Levothyroxine Sodium (Synthroid -) 25 mcg GT DAILY ADDISON Stop: 10/09/16 23:59 Last Admin: 10/06/16 11:29 Dose: 25 mcg Multi-Ingredient Ointment (Zinc Oxide) 1 applic TP BID ADIDSON Last Admin: 10/06/16 22:24 Dose: 1 applic - Objective Vital Signs: Vital Signs Temperature 98.9 F 10/07/16 07:59 Pulse Rate 76 10/07/16 07:59 Respiratory Rate 14 10/07/16 07:59 Blood Pressure 97/55 10/07/16 07:59 O2 Sat by Pulse Oximetry (%) 100 10/06/16 18:13 Constitutional: Yes: No Distress, Calm Cardiovascular: Yes: Tachycardia Gastrointestinal: Yes: Normal Bowel Sounds, Distention, Other (G-Tube intact, leaking from the orfice.) Musculoskeletal: Yes: Joint Stiffness Extremities: Yes: WNL Edema: No Neurological: Yes: Alert (Responds to her name) Labs: CBC, BMP 10/05/16 07:30 10/05/16 07:30 INR, PTT INR 3.86 (0.82-1.09) H D 10/03/16 15:45 Problem List - Problems (1) Hyperglycemia Assessment/Plan: Target Blood glucose below 200 mg/dl. May run high due to acute infectious process. Code(s): R73.9 - HYPERGLYCEMIA, UNSPECIFIED (2) Cerebral palsy Code(s): G80.9 - CEREBRAL PALSY, UNSPECIFIED Qualifiers: Cerebral palsy type: unspecified type Qualified Code(s): G80.9 - Cerebral palsy, unspecified (3) Chronic respiratory failure Code(s): J96.10 - CHRONIC RESPIRATORY FAILURE, UNSP W HYPOXIA OR HYPERCAPNIA Qualifiers: Respiratory failure complication: unspecified whether with hypoxia or hypercapnia Qualified Code(s): J96.10 - Chronic respiratory failure, unspecified whether with hypoxia or hypercapnia (4) Fever Assessment/Plan: Afebrile at the moment Code(s): R50.9 - FEVER, UNSPECIFIED (5) Cholangitis Code(s): K83.0 - CHOLANGITIS (6) Jaundice Assessment/Plan: Improved. Code(s): R17 - UNSPECIFIED JAUNDICE (7) Anemia Assessment/Plan: Improved. Code(s): D64.9 - ANEMIA, UNSPECIFIED Assessment/Plan Awaiting response from [facility]. MOL[facility] form filled out by sister Shyanne. Overall gradually improving with IV abx. Palliative Care on board.
[2016-10-07] MEDS: ZINC OXIDE 20% TOPICAL OINTMENT 30 GM TUBE TP SCH ×2 (11:15→22:03)
[2016-10-07] MEDS: ACETAMINOPHEN 650 MG/20.3 ML ORAL SOLUTION (CUPS) GT PRN (11:15)
[2016-10-07] MEDS: LEVOTHYROXINE NA 25 MCG TABLET (FP) GT SCH (11:15)
--- NOTE | 2016-10-07 14:04 | PN ---
Progress Note (short form) - Note Progress Note: ID Cefazolin for GNB bacteremia biliary source Selected Entries 10/07/16 10/07/16 07:59 11:22 Temperature 98.9 F Pulse Rate 76 Respiratory 14 Rate Blood Pressure 97/55 Microbiology 09/30/16 07:23 Urine - Urine - Catheterized Urine Culture - Final NO GROWTH OBTAINED 09/30/16 06:37 Blood - Peripheral Venous Blood Culture - Final NO GROWTH AFTER 5 DAYS INCUBATION 09/30/16 06:37 Blood - Peripheral Venous Blood Culture - Final Klebsiella Pneumoniae Laboratory Tests 10/05/16 10/05/16 07:30 07:30 WBC 8.1 Hgb 10.4 L D Hct 30.9 L D Plt Count 252 Total Bilirubin 8.4 H D AST 73 H D ALT 42 D Alkaline Phosphatase 502 H Assessment Obstructive janundice with GNB in blood now day 7 therapy Plan Wound continue therapy IV this weekend Could consider changing to po Levofloxacin feeding tube to complete 14 days Aubree ANDERSON Problem List - Problems (1) Sepsis Code(s): A41.9 - SEPSIS, UNSPECIFIED ORGANISM Qualifiers: Sepsis type: sepsis due to unspecified organism Qualified Code(s): A41.9 - Sepsis, unspecified organism (2) Diabetes Code(s): E11.9 - TYPE 2 DIABETES MELLITUS WITHOUT COMPLICATIONS (3) Cholangitis Code(s): K83.0 - CHOLANGITIS (4) Bacteremia due to Klebsiella pneumoniae Code(s): R78.81 - BACTEREMIA
[2016-10-07] MEDS ORDERED: PT OWN MED DRAWER 7, Y5N ONE (17:52)
[2016-10-07] MEDS: MORPHINE 100 MG in SODIUM CHLORIDE 98 ML IVPB SCH (18:06)
[2016-10-07] MEDS: INSULIN DETEMIR 100 UNITS/ML MDV SQ SCH (22:03)
[2016-10-08] MEDS: CEFAZOLIN 2 GM/D5W 50 ML IVPB SCH ×3 (01:56→17:15)
--- NOTE | 2016-10-08 09:26 | PN ---
Progress Note, Physician History of Present Illness: ON VENT LESS JAUNDICE - Current Medication List Current Medications: Active Medications Acetaminophen (Tylenol Oral Solution -) 650 mg GT Q4HPO PRN PRN Reason: FEVER OR PAIN Last Admin: 10/07/16 11:15 Dose: 650 mg Morphine Sulfate 100 mg/ (Sodium Chloride) 100 mls @ 3 mls/hr IVPB TITR ADDISON; 3 MG/HR PRN Reason: Protocol Last Admin: 10/07/16 18:06 Dose: 3 mls/hr Potassium Chloride/Dextrose/Sod Cl (D5-1/2ns+20 Meq Kcl -) 1,000 mls @ 83 mls/ hr IV ASDIR ADDISON Last Admin: 10/07/16 17:56 Dose: 83 mls/hr Cefazolin Sodium/Dextrose (Ancef 2 Gm Premixed Ivpb -) 50 mls @ 100 mls/hr IVPB Q8H-IV ADDISON Last Admin: 10/08/16 01:56 Dose: 100 mls/hr Insulin Detemir (Levemir Vial) 15 units SQ HS ADDISON PRN Reason: Protocol Last Admin: 10/07/16 22:03 Dose: 15 units Levothyroxine Sodium (Synthroid -) 25 mcg GT DAILY ADDISON Stop: 10/09/16 23:59 Last Admin: 10/07/16 11:15 Dose: 25 mcg Multi-Ingredient Ointment (Zinc Oxide) 1 applic TP BID ADDISON Last Admin: 10/07/16 22:03 Dose: 1 applic - Objective Vital Signs: Vital Signs Temperature 99.1 F 10/08/16 05:00 Pulse Rate 96 H 10/08/16 05:00 Respiratory Rate 14 10/08/16 06:06 Blood Pressure 102/49 10/08/16 05:00 O2 Sat by Pulse Oximetry (%) 100 10/07/16 11:22 Cardiovascular: Yes: S1, S2 Respiratory: Yes: Mechanically Ventilated Gastrointestinal: Yes: Normal Bowel Sounds, Soft, Distention Labs: CBC, BMP 10/05/16 07:30 10/05/16 07:30 INR, PTT INR 3.86 (0.82-1.09) H D 10/03/16 15:45 Problem List - Problems (1) Cholangitis Assessment/Plan: ON IV ABX PER ID Code(s): K83.0 - CHOLANGITIS (2) Sepsis Assessment/Plan: Microbiology 09/30/16 06:37 Blood - Peripheral Venous Blood Culture - Final NO GROWTH AFTER 5 DAYS INCUBATION 10/01/16 04:17 Sputum - Endotrachea Suction/Ventilator Gram Stain - Final 10/01/16 04:17 Sputum - Endotrachea Suction/Ventilator Sputum Culture - Final Acinetobacter Baumannii/Haemol 09/30/16 06:37 Blood - Peripheral Venous Blood Culture - Final Klebsiella Pneumoniae 09/30/16 07:23 Urine - Urine - Catheterized Urine Culture - Final NO GROWTH OBTAINED ON ABX Code(s): A41.9 - SEPSIS, UNSPECIFIED ORGANISM Qualifiers: Sepsis type: sepsis due to unspecified organism Qualified Code(s): A41.9 - Sepsis, unspecified organism (3) Cerebral palsy Assessment/Plan: MONITOR Code(s): G80.9 - CEREBRAL PALSY, UNSPECIFIED Qualifiers: Cerebral palsy type: unspecified type Qualified Code(s): G80.9 - Cerebral palsy, unspecified (4) Chronic respiratory failure Assessment/Plan: VENT SETTING SAME ON MORPHINE Code(s): J96.10 - CHRONIC RESPIRATORY FAILURE, UNSP W HYPOXIA OR HYPERCAPNIA Qualifiers: Respiratory failure complication: unspecified whether with hypoxia or hypercapnia Qualified Code(s): J96.10 - Chronic respiratory failure, unspecified whether with hypoxia or hypercapnia (5) Jaundice Assessment/Plan: F/U JMAILA--TRENDING DOWN AM LABS Code(s): R17 - UNSPECIFIED JAUNDICE
[2016-10-08] MEDS: LEVOTHYROXINE NA 25 MCG TABLET (FP) GT SCH (10:00)
[2016-10-08] MEDS: ZINC OXIDE 20% TOPICAL OINTMENT 30 GM TUBE TP SCH ×2 (10:01→22:26)
[2016-10-08] MEDS: ACETAMINOPHEN 650 MG/20.3 ML ORAL SOLUTION (CUPS) GT PRN (10:41)
[2016-10-08 10:58] LABS: ALBUMIN 1.8 g/dl (3.4-5.0); ANION GAP 9 (8-16); BILIRUBIN,TOTAL 4.2 mg/dL (0.2-1.0); CALCIUM 8.5 mg/dL (8.5-10.1); CO2 25 mmol/L (21-32); CREATININE 0.4 mg/dL (0.55-1.02); GLUCOSE,RANDOM 161 mg/dL (74-106); SGOT/AST 38 U/L (15-37); SGPT/ALT 10 U/L (12-78); TOT PROT 6.4 g/dl (6.4-8.2)
[2016-10-08 10:59] LABS: ALK PHOS 433 U/L (45-117)
[2016-10-08] MEDS ORDERED: TRIPLE LUMEN FLUSH 4 ML ML IVPUSH PRN (15:29)
--- NOTE | 2016-10-08 15:29 | PROC ---
Central Line Insertion Indication: Poor Venous Access Risks and Benefits Explained: Yes Consent on Chart: Yes Central Line: Triple Lumen Catheter Anesthesia: 1% Lidocaine Sterile Technique: Yes Ultrasound Guided Assistance: Yes Position: Left Internal Jugular Post Insertion: Yes: Bilateral Breath Sounds, Bilateral Chest Expansion, Chest X-Ray Ordered Sterile Dressing Applied: Yes
[2016-10-08] MEDS: MORPHINE 100 MG in SODIUM CHLORIDE 98 ML IVPB SCH (16:45)
[2016-10-08] MEDS: D5-1/2NS+20 MEQ KCL - 1,000 ML IV SCH (16:47)
[2016-10-08] MEDS ORDERED: PT OWN MED DRAWER 7, Y5N ONE (17:14)
[2016-10-08] MEDS: INSULIN DETEMIR 100 UNITS/ML MDV SQ SCH (22:27)
[2016-10-09] MEDS: ACETAMINOPHEN 1000 MG/100 ML VIAL (NON FORMULARY) IVPB PRN ×2 (00:42→18:33)
[2016-10-09] MEDS: TRIPLE LUMEN FLUSH 4 ML ML IVPUSH PRN ×2 (00:48→23:38)
[2016-10-09] MEDS ORDERED: PT OWN MED DRAWER 7, Y5N ONE ×3 (01:37→17:23)
[2016-10-09] MEDS: CEFAZOLIN 2 GM/D5W 50 ML IVPB SCH ×3 (02:39→17:24)
--- NOTE | 2016-10-09 08:25 | PN ---
Progress Note, Physician History of Present Illness: ON VENT LESS JAUNDICE - Current Medication List Current Medications: Active Medications Acetaminophen (Tylenol Oral Solution -) 650 mg GT Q4HPO PRN PRN Reason: FEVER OR PAIN Last Admin: 10/08/16 10:41 Dose: 650 mg Acetaminophen (Ofirmev Injection -) 1,000 mg IVPB Q6H PRN Last Admin: 10/09/16 00:42 Dose: 1,000 mg IV Flush (Triple Lumen Flush) 4 ml IVPUSH PRN PRN PRN Reason: Protocol Last Admin: 10/09/16 00:48 Dose: 4 ml IV Flush (Triple Lumen Flush) 4 ml IVPUSH PRN PRN PRN Reason: Protocol Morphine Sulfate 100 mg/ (Sodium Chloride) 100 mls @ 3 mls/hr IVPB TITR ADDISON; 3 MG/HR PRN Reason: Protocol Last Admin: 10/08/16 16:45 Dose: 3 mls/hr Potassium Chloride/Dextrose/Sod Cl (D5-1/2ns+20 Meq Kcl -) 1,000 mls @ 83 mls/ hr IV ASDIR ADDISON Last Admin: 10/08/16 16:47 Dose: 83 mls/hr Cefazolin Sodium/Dextrose (Ancef 2 Gm Premixed Ivpb -) 50 mls @ 100 mls/hr IVPB Q8H-IV ADDISON Last Admin: 10/09/16 02:39 Dose: 100 mls/hr Insulin Detemir (Levemir Vial) 15 units SQ HS ADDISON PRN Reason: Protocol Last Admin: 10/08/16 22:27 Dose: 15 units Levothyroxine Sodium (Synthroid -) 25 mcg GT DAILY ADDISON Stop: 10/09/16 23:59 Last Admin: 10/08/16 10:00 Dose: 25 mcg Multi-Ingredient Ointment (Zinc Oxide) 1 applic TP BID ADDISON Last Admin: 10/08/16 22:26 Dose: 1 applic - Objective Vital Signs: Vital Signs Temperature 101.7 F H 10/09/16 03:54 Pulse Rate 101 H 10/08/16 23:00 Respiratory Rate 14 10/09/16 05:44 Blood Pressure 106/58 10/08/16 23:00 O2 Sat by Pulse Oximetry (%) 96 10/08/16 10:33 Cardiovascular: Yes: Regular Rate and Rhythm Respiratory: Yes: Mechanically Ventilated Gastrointestinal: Yes: Normal Bowel Sounds, Soft Labs: INR, PTT INR 3.86 (0.82-1.09) H D 10/03/16 15:45 Problem List - Problems (1) Cholangitis Assessment/Plan: ON IV ABX PER ID Code(s): K83.0 - CHOLANGITIS (2) Cerebral palsy Assessment/Plan: MONITOR Code(s): G80.9 - CEREBRAL PALSY, UNSPECIFIED Qualifiers: Cerebral palsy type: unspecified type Qualified Code(s): G80.9 - Cerebral palsy, unspecified (3) Chronic respiratory failure Assessment/Plan: VENT SETTING SAME ON MORPHINE Code(s): J96.10 - CHRONIC RESPIRATORY FAILURE, UNSP W HYPOXIA OR HYPERCAPNIA Qualifiers: Respiratory failure complication: unspecified whether with hypoxia or hypercapnia Qualified Code(s): J96.10 - Chronic respiratory failure, unspecified whether with hypoxia or hypercapnia (4) Jaundice Assessment/Plan: F/U JAMILA--TRENDING DOWN AM LABS Code(s): R17 - UNSPECIFIED JAUNDICE
[2016-10-09 08:26] LABS: BASOPHIL 0.3 % (0-2.0); EOSINOPHIL 0.3 % (0-4.5); MCH 28.1 pg (25.7-33.7); MCHC 32.7 g/dl (32.0-36.0); MEAN PLT VOLUME 8.4 fl (7.5-11.1); NEUTROPHILS 88.1 % (42.8-82.8); PLATELET COUNT 218 K/MM3 (134-434); RDW 17.1 % (11.6-15.6); WHITE BLOOD COUNT 8.2 K/mm3 (4.0-10.0)
[2016-10-09 08:48] LABS: ALBUMIN 1.5 g/dl (3.4-5.0); ANION GAP 13 (8-16); CALCIUM 8.1 mg/dL (8.5-10.1); CO2 22 mmol/L (21-32)
[2016-10-09 08:55] LABS: ALK PHOS 297 U/L (45-117); BILIRUBIN,TOTAL 3.7 mg/dL (0.2-1.0); CREATININE 0.5 mg/dL (0.55-1.02); GLUCOSE,RANDOM 173 mg/dL (74-106); SGOT/AST 43 U/L (15-37); SGPT/ALT 8 U/L (12-78); TOT PROT 5.6 g/dl (6.4-8.2)
[2016-10-09] MEDS: LEVOTHYROXINE NA 25 MCG TABLET (FP) GT SCH (09:17)
[2016-10-09] MEDS: ZINC OXIDE 20% TOPICAL OINTMENT 30 GM TUBE TP SCH ×2 (09:17→22:35)
--- NOTE | 2016-10-09 14:12 | PN ---
Progress Note, Physician History of Present Illness: Spiked temp 101.7 Non-verbal Breathing non-labored WBC WNL - Current Medication List Current Medications: Active Medications Acetaminophen (Tylenol Oral Solution -) 650 mg GT Q4HPO PRN PRN Reason: FEVER OR PAIN Last Admin: 10/08/16 10:41 Dose: 650 mg Acetaminophen (Ofirmev Injection -) 1,000 mg IVPB Q6H PRN Last Admin: 10/09/16 00:42 Dose: 1,000 mg IV Flush (Triple Lumen Flush) 4 ml IVPUSH PRN PRN PRN Reason: Protocol Last Admin: 10/09/16 00:48 Dose: 4 ml IV Flush (Triple Lumen Flush) 4 ml IVPUSH PRN PRN PRN Reason: Protocol Morphine Sulfate 100 mg/ (Sodium Chloride) 100 mls @ 3 mls/hr IVPB TITR ADDISON; 3 MG/HR PRN Reason: Protocol Last Admin: 10/08/16 16:45 Dose: 3 mls/hr Potassium Chloride/Dextrose/Sod Cl (D5-1/2ns+20 Meq Kcl -) 1,000 mls @ 83 mls/ hr IV ASDIR ADDISON Last Admin: 10/08/16 16:47 Dose: 83 mls/hr Cefazolin Sodium/Dextrose (Ancef 2 Gm Premixed Ivpb -) 50 mls @ 100 mls/hr IVPB Q8H-IV ADDISON Last Admin: 10/09/16 09:16 Dose: 100 mls/hr Insulin Detemir (Levemir Vial) 15 units SQ HS ADDISON PRN Reason: Protocol Last Admin: 10/08/16 22:27 Dose: 15 units Levothyroxine Sodium (Synthroid -) 25 mcg GT DAILY ADDISON Stop: 10/09/16 23:59 Last Admin: 10/09/16 09:17 Dose: Not Given Multi-Ingredient Ointment (Zinc Oxide) 1 applic TP BID ADDISON Last Admin: 10/09/16 09:17 Dose: 1 applic - Objective Vital Signs: Vital Signs Temperature 98.7 F 10/09/16 06:00 Pulse Rate 108 H 10/09/16 10:12 Respiratory Rate 18 10/09/16 10:12 Blood Pressure 141/48 10/09/16 06:00 O2 Sat by Pulse Oximetry (%) 98 10/09/16 10:12 Constitutional: Yes: No Distress Cardiovascular: Yes: Regular Rate and Rhythm, S1, S2 Respiratory: Yes: Rhonchi Gastrointestinal: Yes: Normal Bowel Sounds, Soft, Other (distended). No: Tenderness Edema: Yes Labs: CBC, BMP 10/09/16 07:25 10/09/16 07:25 INR, PTT INR 3.86 (0.82-1.09) H D 10/03/16 15:45 Assessment/Plan Fever Klebsiella bacteremia Obstructive jaundice CP/MR Reculture Continue cefazolin
--- NOTE | 2016-10-09 14:46 | PN ---
Progress Note (short form) - Note Progress Note: Events noted. Still Await 3rd republican evaluation with regards to hospice placement. Management as before. Labs continue to improve. Likely passed stone. Overall prognosis poor Notified that tube feed is leaking from around the tract. 18 Fr G-tube replaced with larger 20 Fr tube at bedside. Gastrograffin study ordered prior to resuming TF FF
[2016-10-09] MEDS: D5-1/2NS+20 MEQ KCL - 1,000 ML IV SCH (16:06)
[2016-10-09 18:40] LABS: URINE APPEARANCE CLEAR; URINE BLOOD NEGATIVE (NEGATIVE); URINE COLOR AMBER; URINE GLUCOSE (UA) 1+ (NEGATIVE); URINE KETONE NEGATIVE (NEGATIVE); URINE LEUK ESTERASE NEGATIVE (NEGATIVE); URINE NITRITE NEGATIVE (NEGATIVE); URINE UROBILINOGEN 4.0 E.U/dl E.U./dl (0.2-1.0)
[2016-10-09 18:41] LABS: URINE PROTEIN 1+ (NEGATIVE)
[2016-10-09 18:45] LABS: URINE MUCUS RARE; URINE RBC 1 /hpf (0-3); URINE WBC 2 /hpf (3-5)
[2016-10-09] MEDS: MORPHINE 100 MG in SODIUM CHLORIDE 98 ML IVPB SCH (18:54)
[2016-10-09] MEDS: INSULIN DETEMIR 100 UNITS/ML MDV SQ SCH (22:34)
[2016-10-09] MEDS ORDERED: SODIUM CHLORIDE 1,000 ML IV ONE (23:15)
[2016-10-09] MEDS: PIPERACILLIN/TAZOB 3.375 GM/50 ML PRE-DOCKED IVPB SCH (23:31)
[2016-10-10] MEDS ORDERED: ALBUTEROL SO4 0.083% IH SOL 2.5 MG/3 ML VIAL.NEB. NEB ONE (00:29)
[2016-10-10] MEDS: MORPHINE 100 MG in SODIUM CHLORIDE 98 ML IVPB SCH ×3 (06:17→19:29)
[2016-10-10] MEDS: TRIPLE LUMEN FLUSH 4 ML ML IVPUSH PRN (06:18)
[2016-10-10] MEDS: PIPERACILLIN/TAZOB 3.375 GM/50 ML PRE-DOCKED IVPB SCH ×2 (06:29→17:16)
[2016-10-10 07:13] LABS: BASOPHIL 0.9 % (0-2.0); EOSINOPHIL 0.8 % (0-4.5); MCH 27.6 pg (25.7-33.7); MCHC 31.8 g/dl (32.0-36.0); MEAN CELL VOLUME 86.9 fl (80-96); MEAN PLT VOLUME 8.8 fl (7.5-11.1); NEUTROPHILS 82.7 % (42.8-82.8); PLATELET COUNT 155 K/MM3 (134-434)
[2016-10-10 07:43] LABS: ALBUMIN 1.4 g/dl (3.4-5.0); ANION GAP 11 (8-16); BILIRUBIN,TOTAL 5.9 mg/dL (0.2-1.0); CALCIUM 7.8 mg/dL (8.5-10.1); CO2 25 mmol/L (21-32); CREATININE 0.3 mg/dL (0.55-1.02); GLUCOSE,RANDOM 74 mg/dL (74-106); SGOT/AST 52 U/L (15-37); SGPT/ALT 7 U/L (12-78)
[2016-10-10 07:44] LABS: ALK PHOS 233 U/L (45-117)
[2016-10-10] MEDS: D5-1/2NS+20 MEQ KCL - 1,000 ML IV SCH ×3 (07:46→22:05)
--- NOTE | 2016-10-10 10:32 | PN ---
Progress Note, Physician Chief Complaint: patient had temp 100.2 last night- now temp 102.4 DNR ivfluids BP in low 100s systolic on morphine drip g tube replaced - Current Medication List Current Medications: Active Medications Acetaminophen (Tylenol Oral Solution -) 650 mg GT Q4HPO PRN PRN Reason: FEVER OR PAIN Last Admin: 10/08/16 10:41 Dose: 650 mg Acetaminophen (Ofirmev Injection -) 1,000 mg IVPB Q6H PRN Last Admin: 10/09/16 18:33 Dose: 1,000 mg IV Flush (Triple Lumen Flush) 4 ml IVPUSH PRN PRN PRN Reason: Protocol Last Admin: 10/10/16 06:18 Dose: 4 ml IV Flush (Triple Lumen Flush) 4 ml IVPUSH PRN PRN PRN Reason: Protocol Potassium Chloride/Dextrose/Sod Cl (D5-1/2ns+20 Meq Kcl -) 1,000 mls @ 83 mls/ hr IV ASDIR ADDISON Last Admin: 10/10/16 07:46 Dose: 83 mls/hr Morphine Sulfate 100 mg/ (Sodium Chloride) 100 mls @ 3 mls/hr IVPB TITR ADDISON; 3 MG/HR PRN Reason: Protocol Last Admin: 10/10/16 07:38 Dose: Not Given Insulin Detemir (Levemir Vial) 15 units SQ HS ADDISON PRN Reason: Protocol Last Admin: 10/09/16 22:34 Dose: 15 units Multi-Ingredient Ointment (Zinc Oxide) 1 applic TP BID ADDISON Last Admin: 10/09/16 22:35 Dose: 1 applic Piperacillin Sod/Tazobactam Sod (Zosyn 3.375gm Ivpb (Pre-Docked)) 3.375 gm IVPB Q8H-IV ADDISON - Objective Vital Signs: Vital Signs Temperature 98.8 F 10/10/16 05:55 Pulse Rate 112 H 10/10/16 09:59 Respiratory Rate 14 10/10/16 09:59 Blood Pressure 81/43 10/10/16 05:55 O2 Sat by Pulse Oximetry (%) 99 10/10/16 09:59 Constitutional: Yes: Calm, Other (nonverbal) HENT: Yes: Other Neck: Yes: Other (trach) Cardiovascular: Yes: Tachycardia, S1, S2 Respiratory: Yes: Mechanically Ventilated Gastrointestinal: Yes: Soft Edema: Yes (of hands) Labs: CBC, BMP 10/10/16 06:00 10/10/16 06:00 INR, PTT INR 3.86 (0.82-1.09) H D 10/03/16 15:45 Problem List - Problems (1) Bacteremia due to Klebsiella pneumoniae Assessment/Plan: iv abx cutures sent antipyretic ivf Code(s): R78.81 - BACTEREMIA (2) Cholangitis Assessment/Plan: elevated LFT on iv abx Code(s): K83.0 - CHOLANGITIS (3) Cerebral palsy Assessment/Plan: vent dependant non verbal Code(s): G80.9 - CEREBRAL PALSY, UNSPECIFIED Qualifiers: Cerebral palsy type: unspecified type Qualified Code(s): G80.9 - Cerebral palsy, unspecified (4) Chronic respiratory failure Assessment/Plan: on vent and morphine drip Code(s): J96.10 - CHRONIC RESPIRATORY FAILURE, UNSP W HYPOXIA OR HYPERCAPNIA Qualifiers: Respiratory failure complication: unspecified whether with hypoxia or hypercapnia Qualified Code(s): J96.10 - Chronic respiratory failure, unspecified whether with hypoxia or hypercapnia (5) Hypotension Assessment/Plan: ivf fluids at 150cc /hr over night Code(s): I95.9 - HYPOTENSION, UNSPECIFIED (6) Anemia Assessment/Plan: drop in h/h could be dilutional will recheck cbc again Code(s): D64.9 - ANEMIA, UNSPECIFIED
[2016-10-10] MEDS: ACETAMINOPHEN 1000 MG/100 ML VIAL (NON FORMULARY) IVPB PRN (11:17)
[2016-10-10] MEDS: ZINC OXIDE 20% TOPICAL OINTMENT 30 GM TUBE TP SCH ×2 (11:17→21:52)
--- NOTE | 2016-10-10 15:27 | PN ---
Progress Note (short form) - Note Progress Note: continued fevers recultured yesterday Vital Signs Period Temp Pulse Resp BP Sys/Hernandez Pulse Ox Last 24 Hr 97.6 F-102.5 F 101-118 14-18 80-127/35-66 99-100 left IJ 6/3 cor-rrr lungs decreased bs at bases abd soft, gt ext no edema CBC, BMP 10/10/16 06:00 10/10/16 06:00 Microbiology 10/09/16 12:30 Blood - Carlos Cath Blood Culture - Preliminary NO GROWTH OBTAINED AFTER 24 HOURS, INCUBATION TO CONTINUE FOR 4 DAYS. 10/09/16 12:30 Blood - Carlos Cath Blood Culture - Preliminary NO GROWTH OBTAINED AFTER 24 HOURS, INCUBATION TO CONTINUE FOR 4 DAYS. 09/30/16 06:37 Blood - Peripheral Venous Blood Culture - Final NO GROWTH AFTER 5 DAYS INCUBATION 10/01/16 04:17 Sputum - Endotrachea Suction/Ventilator Gram Stain - Final 10/01/16 04:17 Sputum - Endotrachea Suction/Ventilator Sputum Culture - Final Acinetobacter Baumannii/Haemol 09/30/16 06:37 Blood - Peripheral Venous Blood Culture - Final Klebsiella Pneumoniae 09/30/16 07:23 Urine - Urine - Catheterized Urine Culture - Final NO GROWTH OBTAINED a/p recurrent fever biliary sepsis chronic respiratory failure cp/mr continue zosyn lfts worsening
[2016-10-10] MEDS ORDERED: PIPERACILLIN/TAZOB 3.375 GM/50 ML PRE-DOCKED IVPB SCH (18:00)
[2016-10-10] MEDS ORDERED: PT OWN MED DRAWER 7, Y5N ONE (20:55)
[2016-10-10] MEDS: INSULIN DETEMIR 100 UNITS/ML MDV SQ SCH (21:50)
[2016-10-11] MEDS: MORPHINE 100 MG in SODIUM CHLORIDE 98 ML IVPB SCH ×2 (03:10→19:05)
[2016-10-11] MEDS: PIPERACILLIN/TAZOB 3.375 GM/50 ML PRE-DOCKED IVPB SCH ×2 (03:17→11:09)
--- NOTE | 2016-10-11 10:21 | PN ---
Progress Note, Physician Chief Complaint: i spoke to boy yesterday then bro also spoke to her plan is for compassionate weaning when boy comes to hospital later today - Current Medication List Current Medications: Active Medications Acetaminophen (Tylenol Oral Solution -) 650 mg GT Q4HPO PRN PRN Reason: FEVER OR PAIN Last Admin: 10/08/16 10:41 Dose: 650 mg Acetaminophen (Ofirmev Injection -) 1,000 mg IVPB Q6H PRN Last Admin: 10/10/16 11:17 Dose: 1,000 mg IV Flush (Triple Lumen Flush) 4 ml IVPUSH PRN PRN PRN Reason: Protocol Last Admin: 10/10/16 06:18 Dose: 4 ml IV Flush (Triple Lumen Flush) 4 ml IVPUSH PRN PRN PRN Reason: Protocol Potassium Chloride/Dextrose/Sod Cl (D5-1/2ns+20 Meq Kcl -) 1,000 mls @ 83 mls/ hr IV ASDIR ADDISON Last Admin: 10/10/16 22:05 Dose: 83 mls/hr Morphine Sulfate 100 mg/ (Sodium Chloride) 100 mls @ 3 mls/hr IVPB TITR ADDISON; 3 MG/HR PRN Reason: Protocol Last Admin: 10/11/16 03:10 Dose: Not Given Insulin Detemir (Levemir Vial) 15 units SQ HS ADDISON PRN Reason: Protocol Last Admin: 10/10/16 21:50 Dose: Not Given Multi-Ingredient Ointment (Zinc Oxide) 1 applic TP BID ADDISON Last Admin: 10/10/16 21:52 Dose: 1 applic Piperacillin Sod/Tazobactam Sod (Zosyn 3.375gm Ivpb (Pre-Docked)) 3.375 gm IVPB Q8H-IV ADDISON Last Admin: 10/11/16 03:17 Dose: 3.375 gm - Objective Vital Signs: Vital Signs Temperature 98.8 F 10/11/16 06:00 Pulse Rate 92 H 10/11/16 06:00 Respiratory Rate 14 10/11/16 09:59 Blood Pressure 100/48 10/11/16 06:00 O2 Sat by Pulse Oximetry (%) 100 10/11/16 00:39 Constitutional: Yes: Calm, Other (non verbal eyes open) Neck: Yes: Other (trach on vent) Cardiovascular: Yes: S1, S2 Respiratory: Yes: Mechanically Ventilated Gastrointestinal: Yes: Soft Edema: Yes Labs: CBC, BMP 10/10/16 06:00 10/10/16 06:00 INR, PTT INR 3.86 (0.82-1.09) H D 10/03/16 15:45 Problem List - Problems (1) Bacteremia due to Klebsiella pneumoniae Assessment/Plan: iv abx- zosyn cutures sent antipyretic ivf Code(s): R78.81 - BACTEREMIA (2) Cholangitis Assessment/Plan: elevated LFT- worsening on iv abx Code(s): K83.0 - CHOLANGITIS (3) Cerebral palsy Assessment/Plan: vent dependant non verbal Code(s): G80.9 - CEREBRAL PALSY, UNSPECIFIED Qualifiers: Cerebral palsy type: unspecified type Qualified Code(s): G80.9 - Cerebral palsy, unspecified (4) Chronic respiratory failure Assessment/Plan: on vent and morphine drip plan for compassionate weaning per palliative care notes once family member comes to hospital Code(s): J96.10 - CHRONIC RESPIRATORY FAILURE, UNSP W HYPOXIA OR HYPERCAPNIA Qualifiers: Respiratory failure complication: unspecified whether with hypoxia or hypercapnia Qualified Code(s): J96.10 - Chronic respiratory failure, unspecified whether with hypoxia or hypercapnia (5) Hypotension Assessment/Plan: ivf fluids Code(s): I95.9 - HYPOTENSION, UNSPECIFIED (6) Anemia Assessment/Plan: drop in h/h could be dilutional will recheck cbc again Code(s): D64.9 - ANEMIA, UNSPECIFIED
[2016-10-11] MEDS: D5-1/2NS+20 MEQ KCL - 1,000 ML IV SCH (11:09)
[2016-10-11] MEDS: ZINC OXIDE 20% TOPICAL OINTMENT 30 GM TUBE TP SCH (11:10)
[2016-10-11] MEDS: ACETAMINOPHEN 1000 MG/100 ML VIAL (NON FORMULARY) IVPB PRN (12:25)
[2016-10-11] MEDS ORDERED: morphine CARPU-JECT 2 MG/1 ML DISP.SYRIN IVPUSH ONE (14:12)
[2016-10-11] MEDS ORDERED: LORazepam 0.5 MG TABLET PO PRN (14:13)
--- NOTE | 2016-10-11 14:17 | PN ---
Progress Note (short form) - Note Progress Note: JERAD papers signed family wants compassionate extubation orders written dc vent ativan prn bolus morphine one time at time of extubation stop abx stop ivf continue morphine drip awaiting organ donation to come to talk to family then will turn off vent Problem List - Problems (1) Bacteremia due to Klebsiella pneumoniae Code(s): R78.81 - BACTEREMIA (2) Cholangitis Code(s): K83.0 - CHOLANGITIS (3) Cerebral palsy Code(s): G80.9 - CEREBRAL PALSY, UNSPECIFIED Qualifiers: Cerebral palsy type: unspecified type Qualified Code(s): G80.9 - Cerebral palsy, unspecified (4) Chronic respiratory failure Code(s): J96.10 - CHRONIC RESPIRATORY FAILURE, UNSP W HYPOXIA OR HYPERCAPNIA Qualifiers: Respiratory failure complication: unspecified whether with hypoxia or hypercapnia Qualified Code(s): J96.10 - Chronic respiratory failure, unspecified whether with hypoxia or hypercapnia (5) Hypotension Code(s): I95.9 - HYPOTENSION, UNSPECIFIED (6) Anemia Code(s): D64.9 - ANEMIA, UNSPECIFIED
[2016-10-11] MEDS ORDERED: LORazepam 0.5 MG TABLET GT PRN (14:19)
[2016-10-11] MEDS: DEXTROSE 5%-0.45% SALINE 1,000 ML IV SCH (16:03)
[2016-10-12] MEDS ORDERED: PIPERACILLIN/TAZOB 3.375 GM/50 ML PRE-DOCKED IVPB ONE (00:15)
--- NOTE | 2016-10-12 00:16 | PN ---
Progress Note (short form) - Note Progress Note: Brief Encounter Note: Pt brought to ICU for frequent blood draws in association for planned palliative discontinuation of life sustaining measures in OR for possible Donation After Cardiac . Surveillance cxls, serial blood draws, chest imaging ordered. Pt has been largely stable on the floor for last couple days. Recent meetings with family led to planned palliative extubation. Orders as per ODN. Desmond Lynn [id number]
[2016-10-12 00:37] LABS: BASOPHIL 0.7 % (0-2.0); EOSINOPHIL 1.7 % (0-4.5); MCH 26.6 pg (25.7-33.7); MCHC 31.9 g/dl (32.0-36.0); MEAN CELL VOLUME 83.5 fl (80-96); MEAN PLT VOLUME 9.7 fl (7.5-11.1); NEUTROPHILS 62.3 % (42.8-82.8); PLATELET COUNT 76 K/MM3 (134-434); RDW 16.9 % (11.6-15.6)
[2016-10-12 00:39] LABS: URINE APPEARANCE CLEAR; URINE BLOOD NEGATIVE (NEGATIVE); URINE COLOR AMBER; URINE GLUCOSE (UA) NEGATIVE (NEGATIVE); URINE KETONE NEGATIVE (NEGATIVE); URINE NITRITE NEGATIVE (NEGATIVE); URINE PROTEIN NEGATIVE (NEGATIVE); URINE UROBILINOGEN 4.0 E.U/dl E.U./dl (0.2-1.0)
[2016-10-12 00:50] LABS: INR 1.51 (0.82-1.09); PROTHROMBIN TIME (PATIENT) 16.7 SEC (9.98-11.88)
[2016-10-12 00:51] LABS: ARTERIAL BLOOD GAS BASE EXCESS 0.3 meq/l (-2-2); ARTERIAL BLOOD GAS HCO3 24.5 meq/L (22-26)
[2016-10-12 00:53] LABS: ACTIVATED PTT 35.1 SECONDS (26.9-34.4)
[2016-10-12 01:01] LABS: URINE LEUK ESTERASE 1+ (NEGATIVE)
[2016-10-12 01:04] LABS: URINE BACTERIA FEW /hpf (NONE SEEN); URINE MUCUS RARE; URINE RBC 1 /hpf (0-3); URINE WBC 31 /hpf (3-5)
[2016-10-12 01:10] LABS: ALLENS TEST POSITIVE; ART PUNCT SITE RIGHT RADIAL; PT. ON O2? YES
[2016-10-12 01:11] LABS: LPM/O2% 30%; MECH. VENT. YES; TYPE OF O2 MECH VENT; VENT RATE 14; VT/PRESS 350
[2016-10-12 01:12] LABS: ARTERIAL BLD GAS O2 SATURATION 69.7 % (90-98.9)
[2016-10-12 01:16] LABS: PLATELET COMMENT2 NO CLUMPING NOTED; PLATELET ESTIMATE DECREASED (NORMAL)
[2016-10-12 01:17] LABS: PLATELET COMMENT3 NO CLOTTING DETECTED
[2016-10-12 01:18] LABS: ALBUMIN 1.3 g/dl (3.4-5.0); AMYLASE 8 U/L (25-115); ANION GAP 9 (8-16); CALCIUM 7.7 mg/dL (8.5-10.1); CO2 25 mmol/L (21-32); CREATININE 0.3 mg/dL (0.55-1.02); GLUCOSE,RANDOM 147 mg/dL (74-106); MAGNESIUM 1.9 mg/dL (1.8-2.4); PHOSPHOROUS 1.9 mg/dL (2.5-4.9); SGOT/AST 25 U/L (15-37); SGPT/ALT < 6 U/L (12-78)
[2016-10-12 01:19] LABS: ALBUMIN 1.3 g/dl (3.4-5.0); BILIRUBIN,DIRECT 2.2 mg/dL (0.0-0.2)
[2016-10-12 01:20] LABS: ALK PHOS 302 U/L (45-117); BILIRUBIN,TOTAL 2.6 mg/dL (0.2-1.0); TOT PROT 4.8 g/dl (6.4-8.2)
[2016-10-12 01:22] LABS: ALK PHOS 299 U/L (45-117); BILIRUBIN,TOTAL 2.6 mg/dL (0.2-1.0); SGOT/AST 23 U/L (15-37); SGPT/ALT < 6 U/L (12-78); TOT PROT 4.8 g/dl (6.4-8.2)
[2016-10-12] MEDS ORDERED: POTASSIUM PHOSPHATE 15 MM in SODIUM CHLORIDE 250 ML IVPB ONE (03:00)
[2016-10-12] MEDS: KCL 10 MEQ IVPB 100 ML IVPB SCH ×2 (03:12→04:11)
[2016-10-12 06:19] LABS: BASOPHIL 0.8 % (0-2.0); EOSINOPHIL 0.8 % (0-4.5); MCH 27.4 pg (25.7-33.7); MCHC 33.1 g/dl (32.0-36.0); MEAN CELL VOLUME 82.7 fl (80-96); MEAN PLT VOLUME 9.5 fl (7.5-11.1); NEUTROPHILS 74.1 % (42.8-82.8); PLATELET COUNT 72 K/MM3 (134-434); RDW 15.6 % (11.6-15.6); WHITE BLOOD COUNT 5.6 K/mm3 (4.0-10.0)
[2016-10-12 06:34] LABS: INR 1.46 (0.82-1.09); PROTHROMBIN TIME (PATIENT) 16.2 SEC (9.98-11.88)
[2016-10-12 06:37] LABS: ACTIVATED PTT 35.8 SECONDS (26.9-34.4)
[2016-10-12 06:44] LABS: ALBUMIN 1.4 g/dl (3.4-5.0); ANION GAP 8 (8-16); BILIRUBIN,DIRECT 2.6 mg/dL (0.0-0.2); BILIRUBIN,TOTAL 3.1 mg/dL (0.2-1.0); CALCIUM 7.7 mg/dL (8.5-10.1); CO2 25 mmol/L (21-32); CREATININE 0.3 mg/dL (0.55-1.02); GLUCOSE,RANDOM 124 mg/dL (74-106); MAGNESIUM 1.8 mg/dL (1.8-2.4); SGOT/AST 26 U/L (15-37); SGPT/ALT < 6 U/L (12-78)
[2016-10-12 06:45] LABS: ALK PHOS 368 U/L (45-117)
--- NOTE | 2016-10-12 08:00 | PN ---
Progress Note, Physician History of Present Illness: as noted pt family want comfort care organ transplant team evaluated patient protocol followed' pt in icu for frequent lab draws - Current Medication List Current Medications: Active Medications Acetaminophen (Tylenol Oral Solution -) 650 mg GT Q4HPO PRN PRN Reason: FEVER OR PAIN Last Admin: 10/08/16 10:41 Dose: 650 mg IV Flush (Triple Lumen Flush) 4 ml IVPUSH PRN PRN PRN Reason: Protocol Morphine Sulfate 100 mg/ (Sodium Chloride) 100 mls @ 3 mls/hr IVPB TITR ADDISON; 3 MG/HR PRN Reason: Protocol Last Admin: 10/11/16 19:05 Dose: 3 mls/hr Dextrose/Sodium Chloride (D5-1/2ns -) 1,000 mls @ 83 mls/hr IV ASDIR ADDISON Last Admin: 10/11/16 16:03 Dose: 83 mls/hr Lorazepam (Ativan -) 0.5 mg GT TID PRN PRN Reason: ANXIETY Piperacillin Sod/Tazobactam Sod (Zosyn 3.375gm Ivpb (Pre-Docked)) 3.375 gm IVPB Q8H-IV ADDISON PRN Reason: Protocol - Objective Vital Signs: Vital Signs Temperature 99.5 F 10/12/16 06:00 Pulse Rate 77 10/12/16 06:00 Respiratory Rate 14 10/12/16 07:29 Blood Pressure 105/56 10/12/16 06:00 O2 Sat by Pulse Oximetry (%) 100 10/12/16 00:32 Cardiovascular: Yes: S1, S2 Respiratory: Yes: Mechanically Ventilated Labs: CBC, BMP 10/12/16 06:00 10/12/16 06:00 INR, PTT INR 1.46 (0.82-1.09) H 10/12/16 06:00 Problem List - Problems (1) Cholangitis Code(s): K83.0 - CHOLANGITIS (2) Cerebral palsy Code(s): G80.9 - CEREBRAL PALSY, UNSPECIFIED Qualifiers: Cerebral palsy type: unspecified type Qualified Code(s): G80.9 - Cerebral palsy, unspecified (3) Chronic respiratory failure Code(s): J96.10 - CHRONIC RESPIRATORY FAILURE, UNSP W HYPOXIA OR HYPERCAPNIA Qualifiers: Respiratory failure complication: unspecified whether with hypoxia or hypercapnia Qualified Code(s): J96.10 - Chronic respiratory failure, unspecified whether with hypoxia or hypercapnia (4) Jaundice Code(s): R17 - UNSPECIFIED JAUNDICE Assessment/Plan comfort care morphine further plan per organ transplant protocol
[2016-10-12 08:20] LABS: ARTERIAL BLD GAS O2 SATURATION 99.2 % (90-98.9); ARTERIAL BLOOD GAS BASE EXCESS -1.6 meq/l (-2-2); ARTERIAL BLOOD GAS HCO3 22.4 meq/L (22-26); ARTERIAL BLOOD GAS pH 7.39 (7.35-7.45)
[2016-10-12 08:23] LABS: ALLENS TEST POSITIVE; ART PUNCT SITE RIGHT RADIAL; LPM/O2% 30%; MECH. VENT. ESPRIT; PT. ON O2? YES; TYPE OF O2 MEC.VENT; VENT RATE 14; VT/PRESS 350
[2016-10-12] MEDS: PIPERACILLIN/TAZOB 3.375 GM/50 ML PRE-DOCKED IVPB SCH ×2 (09:15→18:44)
[2016-10-12] MEDS: DEXTROSE 5%-0.45% SALINE 1,000 ML IV SCH ×2 (09:16→14:41)
--- NOTE | 2016-10-12 11:05 | PN ---
Physical Exam: SUBJECTIVE: Patient seen and examined. patient is nonverbal/noncommunicative, with trach. OBJECTIVE: Vital Signs Period Temp Pulse Resp BP Sys/Hernandez Pulse Ox Last 24 Hr 97.6 F-99.9 F 70-96 13-56 98-120/51-67 97-100 GENERAL: The patient is awake, alert. contracted with cerebrel palsy EYES: PERRL, sclera anicteric, conjunctiva clear. ENT: Ears with ear wax b/l, nares patent, moist mucous membranes. NECK: Trachea midline, with trach in place, secretions from lower part of trac LUNGS: Breath sounds with intermittent wheezing. HEART: Regular rate and rhythm, S1, S2 without murmur ABDOMEN: Soft, nontender, nondistended, normoactive bowel sounds. well healed midline scar EXTREMITIES: warm, well-perfused, no edema. contracted extremities NEUROLOGICAL: noncommunicative, nonverbal. SKIN: Warm, dry, normal turgor, no rashes or lesions noted Daigle in place Laboratory Results - last 24 hr 10/12/16 10/12/16 10/12/16 00:05 00:05 00:05 WBC 4.0 D RBC 2.38 L Hgb 6.3 L* D Hct 19.9 L MCV 83.5 MCHC 31.9 L RDW 16.9 H Plt Count 76 L D MPV 9.7 D Neutrophils % 62.3 D Lymphocytes % 30.8 D Monocytes % 4.5 D Eosinophils % 1.7 D Basophils % 0.7 Platelet Estimate Decreased Platelet Comment No clumping noted INR 1.51 H D PTT (Actin FS) 35.1 H D Puncture Site ABG pH ABG pCO2 at Pt Temp ABG pO2 at Pt Temp ABG HCO3 ABG O2 Sat (Measured) ABG O2 Content ABG Base Excess Deion Test O2 Delivery Device Oxygen Flow Rate Vent Mode Vent Rate Mechanical Rate PEEP Pressure Support Vent Sodium 138 Potassium 3.4 L Chloride 104 Carbon Dioxide 25 Anion Gap 9 BUN 11 Creatinine 0.3 L Creat Clearance w eGFR > 60 Random Glucose 147 H D Calcium 7.7 L Phosphorus 1.9 L Magnesium 1.9 Total Bilirubin 2.6 H D Direct Bilirubin AST 25 D ALT < 6 L Alkaline Phosphatase 302 H D Total Protein 4.8 L Albumin 1.3 L Total Amylase 8 L D Lipase Urine Color Urine Appearance Urine pH Urine Protein Urine Glucose (UA) Urine Ketones Urine Blood Urine Nitrite Urine Bilirubin Urine Urobilinogen Ur Leukocyte Esterase Urine RBC Urine WBC Ur Epithelial Cells Urine Bacteria Urine Mucus Blood Type Antibody Screen Crossmatch 10/12/16 10/12/16 10/12/16 00:05 00:05 00:05 WBC RBC Hgb Hct MCV MCHC RDW Plt Count MPV Neutrophils % Lymphocytes % Monocytes % Eosinophils % Basophils % Platelet Estimate Platelet Comment INR PTT (Actin FS) Puncture Site ABG pH ABG pCO2 at Pt Temp ABG pO2 at Pt Temp ABG HCO3 ABG O2 Sat (Measured) ABG O2 Content ABG Base Excess Deion Test O2 Delivery Device Oxygen Flow Rate Vent Mode Vent Rate Mechanical Rate PEEP Pressure Support Vent Sodium Potassium Chloride Carbon Dioxide Anion Gap BUN Creatinine Creat Clearance w eGFR Random Glucose Calcium Phosphorus Magnesium Total Bilirubin 2.6 H Direct Bilirubin 2.2 H AST 23 ALT < 6 L Alkaline Phosphatase 299 H Total Protein 4.8 L Albumin 1.3 L Total Amylase Lipase 81 Urine Color Urine Appearance Urine pH Urine Protein Urine Glucose (UA) Urine Ketones Urine Blood Urine Nitrite Urine Bilirubin Urine Urobilinogen Ur Leukocyte Esterase Urine RBC Urine WBC Ur Epithelial Cells Urine Bacteria Urine Mucus Blood Type O POSITIVE Antibody Screen Negative Crossmatch See Detail 10/12/16 10/12/16 10/12/16 00:05 00:40 06:00 WBC 5.6 D RBC 3.00 L D Hgb 8.2 L D Hct 24.8 L D MCV 82.7 MCHC 33.1 RDW 15.6 Plt Count 72 L MPV 9.5 Neutrophils % 74.1 Lymphocytes % 20.7 D Monocytes % 3.6 L Eosinophils % 0.8 Basophils % 0.8 Platelet Estimate Platelet Comment INR PTT (Actin FS) Puncture Site Right radial ABG pH 7.40 ABG pCO2 at Pt Temp 40.6 ABG pO2 at Pt Temp 38.0 L* D ABG HCO3 24.5 ABG O2 Sat (Measured) 69.7 L* ABG O2 Content 5.8 L* ABG Base Excess 0.3 Deion Test Positive O2 Delivery Device Mech vent Oxygen Flow Rate 30% Vent Mode A/c Vent Rate 14 Mechanical Rate Yes PEEP 5.0 Pressure Support Vent 350 Sodium Potassium Chloride Carbon Dioxide Anion Gap BUN Creatinine Creat Clearance w eGFR Random Glucose Calcium Phosphorus Magnesium Total Bilirubin Direct Bilirubin AST ALT Alkaline Phosphatase Total Protein Albumin Total Amylase Lipase Urine Color Kayce Urine Appearance Clear Urine pH 5.0 Urine Protein Negative Urine Glucose (UA) Negative Urine Ketones Negative Urine Blood Negative Urine Nitrite Negative Urine Bilirubin 2.0 Urine Urobilinogen 4.0 e.u/dl H Ur Leukocyte Esterase 1+ H Urine RBC 1 Urine WBC 31 Ur Epithelial Cells Rare Urine Bacteria Few Urine Mucus Rare Blood Type Antibody Screen Crossmatch 10/12/16 10/12/16 10/12/16 06:00 06:00 08:10 WBC RBC Hgb Hct MCV MCHC RDW Plt Count MPV Neutrophils % Lymphocytes % Monocytes % Eosinophils % Basophils % Platelet Estimate Platelet Comment INR 1.46 H PTT (Actin FS) 35.8 H Puncture Site Right radial ABG pH 7.39 ABG pCO2 at Pt Temp 37.9 ABG pO2 at Pt Temp 119.0 H D ABG HCO3 22.4 ABG O2 Sat (Measured) 99.2 H ABG O2 Content 11.5 L ABG Base Excess -1.6 Deion Test Positive O2 Delivery Device Mec.vent Oxygen Flow Rate 30% Vent Mode A/c Vent Rate 14 Mechanical Rate Esprit PEEP 5.0 Pressure Support Vent 350 Sodium 138 Potassium 4.8 D Chloride 105 Carbon Dioxide 25 Anion Gap 8 BUN 10 Creatinine 0.3 L Creat Clearance w eGFR > 60 Random Glucose 124 H Calcium 7.7 L Phosphorus 5.0 H D Magnesium 1.8 Total Bilirubin 3.1 H Direct Bilirubin 2.6 H AST 26 ALT < 6 L Alkaline Phosphatase 368 H D Total Protein 5.0 L Albumin 1.4 L Total Amylase Lipase Urine Color Urine Appearance Urine pH Urine Protein Urine Glucose (UA) Urine Ketones Urine Blood Urine Nitrite Urine Bilirubin Urine Urobilinogen Ur Leukocyte Esterase Urine RBC Urine WBC Ur Epithelial Cells Urine Bacteria Urine Mucus Blood Type Antibody Screen Crossmatch Active Medications Generic Name Dose Route Start Last Admin Trade Name Freq PRN Reason Stop Dose Admin Acetaminophen 650 mg 10/04/16 16:15 10/08/16 10:41 Tylenol Oral Solution - GT 650 mg Q4HPO PRN Administration FEVER OR PAIN IV Flush 4 ml 10/08/16 15:29 Triple Lumen Flush IVPUSH PRN PRN Protocol Morphine Sulfate 100 mg/ 100 mls @ 3 mls/hr 10/09/16 23:30 10/11/16 19:05 Sodium Chloride IVPB 3 mls/hr TITR ADDISON Administration Protocol 3 MG/HR Dextrose/Sodium Chloride 1,000 mls @ 83 mls/hr 10/11/16 14:30 10/12/16 09:16 D5-1/2ns - IV 83 mls/hr ASDIR ADDISON Administration Lorazepam 0.5 mg 10/11/16 14:19 Ativan - GT TID PRN ANXIETY Piperacillin Sod/Tazobactam Sod 3.375 gm 10/12/16 08:00 10/12/16 09:15 Zosyn 3.375gm Ivpb (Pre-Docked) IVPB 3.375 gm Q8H-IV ADDISON Administration Protocol Microbiology 10/09/16 12:30 Blood - Carlos Cath Blood Culture - Preliminary NO GROWTH OBTAINED AFTER 48 HOURS, INCUBATION TO CONTINUE FOR 3 DAYS. 10/09/16 12:30 Blood - Carlos Cath Blood Culture - Preliminary NO GROWTH OBTAINED AFTER 48 HOURS, INCUBATION TO CONTINUE FOR 3 DAYS. 10/09/16 17:50 Urine - Urine - Catheterized Urine Culture - Final NO GROWTH OBTAINED 09/30/16 06:37 Blood - Peripheral Venous Blood Culture - Final NO GROWTH AFTER 5 DAYS INCUBATION 10/01/16 04:17 Sputum - Endotrachea Suction/Ventilator Gram Stain - Final 10/01/16 04:17 Sputum - Endotrachea Suction/Ventilator Sputum Culture - Final Acinetobacter Baumannii/Haemol 09/30/16 06:37 Blood - Peripheral Venous Blood Culture - Final Klebsiella Pneumoniae 09/30/16 07:23 Urine - Urine - Catheterized Urine Culture - Final NO GROWTH OBTAINED ASSESSMENT/PLAN: 35 yr old woman with severe MR, cerebral palsy, transferred from [facility] due to fever, respiratory distress found to have cholangitis, sputum with acinetobacter and bactermia treated with antibiotics. There is no chance for meaningful recovery. Visit type - Emergency Visit Emergency Visit: No - New Patient This patient is new to me today: Yes Date on this admission: 10/12/16 - Critical Care Critical Care patient: Yes Total Critical Care Time (in minutes): 36 Critical Care Statement: The care of this patient involved high complexity decision making to prevent further life threatening deterioration of the patient 's condition and/or to evalute & treat vital organ system(s) failure or risk of failure.
--- NOTE | 2016-10-12 11:56 | PN ---
Teaching Attending Note Name of Resident: Linh Mireles ATTENDING PHYSICIAN STATEMENT I saw and evaluated the patient. I reviewed the resident's note and discussed the case with the resident. I agree with the resident's findings and plan as documented. SUBJECTIVE: Pt seen and examined in the ICU. Vented, poorly responsive. No fevers recorded. OBJECTIVE: Last Vital Signs Temp Pulse Resp BP Pulse Ox 99.8 F H 80 14 99/51 100 10/12/16 11:00 10/12/16 11:00 10/12/16 11:00 10/12/16 11:00 10/12/16 10:12 Intake & Output 10/09/16 10/10/16 10/11/16 10/12/16 23:59 23:59 23:59 23:59 Intake Total 3328 1436 1298 1220 Output Total 1 400 Balance 3328 1436 1297 820 Weight 115 lb Gen: vented, poorly responsive Heart: RRR Lung: decreased breath sounds at the bases Abd: soft, distended Ext: no edema, contracted CBC, BMP 10/12/16 06:00 10/12/16 06:00 Active Medications Acetaminophen (Tylenol Oral Solution -) 650 mg GT Q4HPO PRN PRN Reason: FEVER OR PAIN Last Admin: 10/08/16 10:41 Dose: 650 mg IV Flush (Triple Lumen Flush) 4 ml IVPUSH PRN PRN PRN Reason: Protocol Morphine Sulfate 100 mg/ (Sodium Chloride) 100 mls @ 3 mls/hr IVPB TITR ADDISON; 3 MG/HR PRN Reason: Protocol Last Admin: 10/11/16 19:05 Dose: 3 mls/hr Dextrose/Sodium Chloride (D5-1/2ns -) 1,000 mls @ 83 mls/hr IV ASDIR ADDISON Last Admin: 10/12/16 09:16 Dose: 83 mls/hr Lorazepam (Ativan -) 0.5 mg GT TID PRN PRN Reason: ANXIETY Piperacillin Sod/Tazobactam Sod (Zosyn 3.375gm Ivpb (Pre-Docked)) 3.375 gm IVPB Q8H-IV ADDISON PRN Reason: Protocol Last Admin: 10/12/16 09:15 Dose: 3.375 gm ASSESSMENT AND PLAN: Acute cholangitis Klebsiella Bacteremia Cerebral Palsy Vent Dependent Respiratory Failure Severe Mental Retardation - continue antibiotics - agree with compassionate extubation due to medical futility - comfort measures
[2016-10-12] MEDS ORDERED: HEPARIN NA (PORCINE) 5,000 UNITS/ML 1ML VIAL IVPUSH ONE ×4 (13:10→15:15)
[2016-10-12] MEDS ORDERED: SODIUM CHLORIDE 500 ML IV STA (14:36)
[2016-10-12] MEDS ORDERED: morphine CARPU-JECT 2 MG/1 ML DISP.SYRIN IVPUSH PRN (14:45)
[2016-10-12] MEDS ORDERED: LORAZEPAM CARPU-JECT 2 MG/ML DISP.SYRIN IVPUSH PRN (14:47)
[2016-10-12] MEDS ORDERED: morphine CARPU-JECT 4 MG/1 ML DISP.SYRIN ONE (14:53)
[2016-10-12] MEDS ORDERED: LORazepam 2 MG/ML SDV VIAL ONE (14:54)
--- NOTE | 2016-10-12 16:09 | PN ---
Progress Note (short form) - Note Progress Note: Patient brought into room for organ procurement. I assisted in placing monitors and hooking up to ventilator. I then exited the room after everyone was comfortable with the anesthesia equipment and ventilator.
[2016-10-12] MEDS ORDERED: morphine CARPU-JECT 2 MG/1 ML DISP.SYRIN IVPUSH ONE ×2 (16:45→17:05)
[2016-10-13] MEDS: MORPHINE 100 MG in SODIUM CHLORIDE 98 ML IVPB SCH ×4 (02:00→18:42)
--- NOTE | 2016-10-13 11:49 | PN ---
Progress Note (short form) - Note Progress Note: Events noted. Taken to the OR for organ harvesting. Did not , now back in the ICU. NAD on MS drip. Intake & Output 10/10/16 10/11/16 10/12/16 10/13/16 23:59 23:59 23:59 23:59 Intake Total 1436 1298 3047 29 Output Total 1 875 300 Balance 1436 1297 2172 -271 Weight 115 lb 118 lb 6.4 oz Last Vital Signs Temp Pulse Resp BP Pulse Ox 98.6 F 90 20 106/58 97 10/12/16 18:00 10/13/16 05:02 10/13/16 05:02 10/13/16 05:02 10/12/16 21:00 Active Medications Acetaminophen (Tylenol Oral Solution -) 650 mg GT Q4HPO PRN PRN Reason: FEVER OR PAIN Last Admin: 10/08/16 10:41 Dose: 650 mg IV Flush (Triple Lumen Flush) 4 ml IVPUSH PRN PRN PRN Reason: Protocol Morphine Sulfate 100 mg/ (Sodium Chloride) 100 mls @ 3 mls/hr IVPB TITR ADDISON; 3 MG/HR PRN Reason: Protocol Last Admin: 10/13/16 07:00 Dose: 6 mls/hr Lorazepam (Ativan -) 0.5 mg GT TID PRN PRN Reason: ANXIETY Lorazepam (Ativan Injection -) 2 mg IVPUSH Q2H PRN PRN Reason: AGITATION Last Admin: 10/12/16 16:29 Dose: 2 mg Morphine Sulfate (Morphine Injection -) 2 mg IVPUSH Q2H PRN PRN Reason: PAIN Last Admin: 10/12/16 16:40 Dose: 2 mg Constitutional: Yes: jaundiced, Trach collar Eyes: Yes: Jaundiced HENT: Yes: Atraumatic Neck: Yes: Other (Trached) Cardiovascular: Yes: Regular Rate and Rhythm Respiratory: Yes: Scattered Rhonchi. No: Accessory Muscle Use, Rales, Stridor, Tachypnea, Wheezes ...Clubbing: No Gastrointestinal: Yes: Normal Bowel Sounds, Soft Extremities: Yes: Shortened. No: Cool, Cyanosis Edema: No Peripheral Pulses WNL: Yes Labs: Laboratory Results - last 24 hr 10/12/16 10/12/16 00:05 06:00 Hemoglobin A1c % 4.9 D Ur Specific [place] <= 1.005 Problem List - Problems (1) Cholangitis Code(s): K83.0 - CHOLANGITIS (2) Hyperglycemia Code(s): R73.9 - HYPERGLYCEMIA, UNSPECIFIED (3) Jaundice Code(s): R17 - UNSPECIFIED JAUNDICE (4) Sepsis Code(s): A41.9 - SEPSIS, UNSPECIFIED ORGANISM Qualifiers: Sepsis type: sepsis due to unspecified organism Qualified Code(s): A41.9 - Sepsis, unspecified organism (5) Anemia Code(s): D64.9 - ANEMIA, UNSPECIFIED (6) Cerebral palsy Code(s): G80.9 - CEREBRAL PALSY, UNSPECIFIED Qualifiers: Cerebral palsy type: unspecified type Qualified Code(s): G80.9 - Cerebral palsy, unspecified (7) Chronic respiratory failure Code(s): J96.10 - CHRONIC RESPIRATORY FAILURE, UNSP W HYPOXIA OR HYPERCAPNIA (8) Dehydration Code(s): E86.0 - DEHYDRATION (9) Hypothyroid Code(s): E03.9 - HYPOTHYROIDISM, UNSPECIFIED (10) Positive blood cultures Code(s): R78.81 - BACTEREMIA (11) Respirator dependence Code(s): Z99.11 - DEPENDENCE ON RESPIRATOR [VENTILATOR] STATUS Assessment/Plan Comfort measures No blood draws / diagnostics MS drip for comfort. Dr Martin Problem List - Problems (1) Cholangitis Code(s): K83.0 - CHOLANGITIS (2) Hyperglycemia Code(s): R73.9 - HYPERGLYCEMIA, UNSPECIFIED (3) Jaundice Code(s): R17 - UNSPECIFIED JAUNDICE (4) Anemia Code(s): D64.9 - ANEMIA, UNSPECIFIED (5) Cerebral palsy Code(s): G80.9 - CEREBRAL PALSY, UNSPECIFIED Qualifiers: Cerebral palsy type: unspecified type Qualified Code(s): G80.9 - Cerebral palsy, unspecified (6) Chronic respiratory failure Code(s): J96.10 - CHRONIC RESPIRATORY FAILURE, UNSP W HYPOXIA OR HYPERCAPNIA Qualifiers: Respiratory failure complication: unspecified whether with hypoxia or hypercapnia Qualified Code(s): J96.10 - Chronic respiratory failure, unspecified whether with hypoxia or hypercapnia (7) Dehydration Code(s): E86.0 - DEHYDRATION (8) Hypothyroid Code(s): E03.9 - HYPOTHYROIDISM, UNSPECIFIED (9) Positive blood cultures Code(s): R78.81 - BACTEREMIA (10) Respirator dependence Code(s): Z99.11 - DEPENDENCE ON RESPIRATOR [VENTILATOR] STATUS
--- NOTE | 2016-10-13 12:51 | PN ---
Progress Note, Physician Chief Complaint: went to OR today for organ harvesting on MS leal comfortable DNR - Current Medication List Current Medications: Active Medications Acetaminophen (Tylenol Oral Solution -) 650 mg GT Q4HPO PRN PRN Reason: FEVER OR PAIN Last Admin: 10/08/16 10:41 Dose: 650 mg IV Flush (Triple Lumen Flush) 4 ml IVPUSH PRN PRN PRN Reason: Protocol Morphine Sulfate 100 mg/ (Sodium Chloride) 100 mls @ 3 mls/hr IVPB TITR ADDISON; 3 MG/HR PRN Reason: Protocol Last Admin: 10/13/16 07:00 Dose: 6 mls/hr Lorazepam (Ativan -) 0.5 mg GT TID PRN PRN Reason: ANXIETY Lorazepam (Ativan Injection -) 2 mg IVPUSH Q2H PRN PRN Reason: AGITATION Last Admin: 10/12/16 16:29 Dose: 2 mg Morphine Sulfate (Morphine Injection -) 2 mg IVPUSH Q2H PRN PRN Reason: PAIN Last Admin: 10/12/16 16:40 Dose: 2 mg - Objective Vital Signs: Vital Signs Temperature 98.6 F 10/13/16 08:00 Pulse Rate 92 H 10/13/16 08:00 Respiratory Rate 32 H 10/13/16 08:00 Blood Pressure 93/48 10/13/16 08:00 O2 Sat by Pulse Oximetry (%) 97 10/12/16 21:00 Constitutional: Yes: Calm Neck: Yes: Trachea Midline Cardiovascular: Yes: Regular Rate and Rhythm, S1, S2 Gastrointestinal: Yes: Soft Edema: Yes Neurological: Yes: Other (nonverbal) Labs: CBC, BMP 10/12/16 06:00 10/12/16 06:00 INR, PTT INR 1.46 (0.82-1.09) H 10/12/16 06:00 Problem List - Problems (1) Bacteremia due to Klebsiella pneumoniae Assessment/Plan: stop abx Code(s): R78.81 - BACTEREMIA (2) Cholangitis Assessment/Plan: comfort care MS drderrick liver harvested Code(s): K83.0 - CHOLANGITIS (3) Cerebral palsy Assessment/Plan: off the vent compassionate weaning- MS drip Code(s): G80.9 - CEREBRAL PALSY, UNSPECIFIED Qualifiers: Cerebral palsy type: unspecified type Qualified Code(s): G80.9 - Cerebral palsy, unspecified (4) Chronic respiratory failure Assessment/Plan: off the vent compassionate weaning organ harvesting done Code(s): J96.10 - CHRONIC RESPIRATORY FAILURE, UNSP W HYPOXIA OR HYPERCAPNIA Qualifiers: Respiratory failure complication: unspecified whether with hypoxia or hypercapnia Qualified Code(s): J96.10 - Chronic respiratory failure, unspecified whether with hypoxia or hypercapnia (5) Hypotension Assessment/Plan: comfort care Code(s): I95.9 - HYPOTENSION, UNSPECIFIED (6) Anemia Assessment/Plan: comfort care Code(s): D64.9 - ANEMIA, UNSPECIFIED
--- NOTE | 2016-10-13 18:09 | PN ---
Progress Note, Physician Chief Complaint: patient seen today in ICU on morphine drip - Current Medication List Current Medications: Active Medications Acetaminophen (Tylenol Oral Solution -) 650 mg GT Q4HPO PRN PRN Reason: FEVER OR PAIN Last Admin: 10/08/16 10:41 Dose: 650 mg IV Flush (Triple Lumen Flush) 4 ml IVPUSH PRN PRN PRN Reason: Protocol Morphine Sulfate 100 mg/ (Sodium Chloride) 100 mls @ 3 mls/hr IVPB TITR ADDISON; 3 MG/HR PRN Reason: Protocol Last Admin: 10/13/16 07:00 Dose: 6 mls/hr Lorazepam (Ativan -) 0.5 mg GT TID PRN PRN Reason: ANXIETY Lorazepam (Ativan Injection -) 2 mg IVPUSH Q2H PRN PRN Reason: AGITATION Last Admin: 10/12/16 16:29 Dose: 2 mg Morphine Sulfate (Morphine Injection -) 2 mg IVPUSH Q2H PRN PRN Reason: PAIN Last Admin: 10/12/16 16:40 Dose: 2 mg - Objective Vital Signs: Vital Signs Temperature 98.6 F 10/13/16 08:00 Pulse Rate 98 H 10/13/16 17:00 Respiratory Rate 18 10/13/16 17:00 Blood Pressure 120/60 10/13/16 17:00 O2 Sat by Pulse Oximetry (%) 90 L 10/13/16 09:00 Constitutional: Yes: Moderate Distress Cardiovascular: Yes: S1, S2 Respiratory: Yes: Rhonchi Gastrointestinal: Yes: Soft Edema: Yes Labs: CBC, BMP 10/12/16 06:00 10/12/16 06:00 INR, PTT INR 1.46 (0.82-1.09) H 10/12/16 06:00 Problem List - Problems (1) Bacteremia due to Klebsiella pneumoniae Assessment/Plan: stop abx Code(s): R78.81 - BACTEREMIA (2) Cholangitis Assessment/Plan: comfort care MS drip Code(s): K83.0 - CHOLANGITIS (3) Cerebral palsy Assessment/Plan: off the vent compassionate weaning- MS drip Code(s): G80.9 - CEREBRAL PALSY, UNSPECIFIED Qualifiers: Cerebral palsy type: unspecified type Qualified Code(s): G80.9 - Cerebral palsy, unspecified (4) Chronic respiratory failure Assessment/Plan: off the vent compassionate weaning Code(s): J96.10 - CHRONIC RESPIRATORY FAILURE, UNSP W HYPOXIA OR HYPERCAPNIA Qualifiers: Respiratory failure complication: unspecified whether with hypoxia or hypercapnia Qualified Code(s): J96.10 - Chronic respiratory failure, unspecified whether with hypoxia or hypercapnia (5) Hypotension Assessment/Plan: comfort care Code(s): I95.9 - HYPOTENSION, UNSPECIFIED (6) Anemia Assessment/Plan: comfort care Code(s): D64.9 - ANEMIA, UNSPECIFIED
[2016-10-14] MEDS: MORPHINE 100 MG in SODIUM CHLORIDE 98 ML IVPB SCH (11:50)
--- NOTE | 2016-10-14 17:54 | PN ---
Progress Note, Physician Chief Complaint: Fever of Unknown origin. History of Present Illness: Patient came in with FUO, work up showed elevated Billirubin--> Obstructive Cholecystitis. She has been on IV abx. Her sister and half sister has agreed the patient to be terminally weaned because of poor prognosis. Awaiting response from [employer] [facility] [employer] for approval. - Current Medication List Current Medications: Active Medications Acetaminophen (Tylenol Oral Solution -) 650 mg GT Q4HPO PRN PRN Reason: FEVER OR PAIN Last Admin: 10/08/16 10:41 Dose: 650 mg IV Flush (Triple Lumen Flush) 4 ml IVPUSH PRN PRN PRN Reason: Protocol Morphine Sulfate 100 mg/ (Sodium Chloride) 100 mls @ 3 mls/hr IVPB TITR ADDISON; 3 MG/HR PRN Reason: Protocol Last Admin: 10/14/16 11:50 Dose: 6 mls/hr Lorazepam (Ativan Injection -) 2 mg IVPUSH Q2H PRN PRN Reason: AGITATION Last Admin: 10/12/16 16:29 Dose: 2 mg Morphine Sulfate (Morphine Injection -) 2 mg IVPUSH Q2H PRN PRN Reason: PAIN Last Admin: 10/12/16 16:40 Dose: 2 mg - Objective Vital Signs: Vital Signs Temperature 97.8 F 10/14/16 10:00 Pulse Rate 119 H 10/14/16 14:00 Respiratory Rate 18 10/14/16 14:00 Blood Pressure 99/55 10/14/16 14:00 O2 Sat by Pulse Oximetry (%) 90 L 10/14/16 10:00 Constitutional: Yes: No Distress, Calm Cardiovascular: Yes: Regular Rate and Rhythm Respiratory: Yes: Regular Gastrointestinal: Yes: Normal Bowel Sounds Edema: No Labs: CBC, BMP 10/12/16 06:00 10/12/16 06:00 INR, PTT INR 1.46 (0.82-1.09) H 10/12/16 06:00 Problem List - Problems (1) Hyperglycemia Code(s): R73.9 - HYPERGLYCEMIA, UNSPECIFIED (2) Cerebral palsy Code(s): G80.9 - CEREBRAL PALSY, UNSPECIFIED Qualifiers: Cerebral palsy type: unspecified type Qualified Code(s): G80.9 - Cerebral palsy, unspecified (3) Chronic respiratory failure Assessment/Plan: ON TRACH MASK, TOLERATING WELL, MORPHINE DRIP. Code(s): J96.10 - CHRONIC RESPIRATORY FAILURE, UNSP W HYPOXIA OR HYPERCAPNIA Qualifiers: Respiratory failure complication: unspecified whether with hypoxia or hypercapnia Qualified Code(s): J96.10 - Chronic respiratory failure, unspecified whether with hypoxia or hypercapnia (4) Fever Assessment/Plan: AFEBRILE Code(s): R50.9 - FEVER, UNSPECIFIED (5) Anemia Code(s): D64.9 - ANEMIA, UNSPECIFIED (6) Hospice care Assessment/Plan: ON MORPHINE DRIP, TRACH MASK, LOOKS COMFORTABLE IN BED. Assessment/Plan TRACH MASK, MORPHINE DRIP COMFORT CARE
[2016-10-15] MEDS: MORPHINE 100 MG in SODIUM CHLORIDE 98 ML IVPB SCH ×5 (01:37→19:48)
--- NOTE | 2016-10-15 10:51 | PN ---
Progress Note, Physician Chief Complaint: THIS IS MY FIRST ENCOUNTER WITH THIS PATIENT NOTES AND RECORD REVIEWED IN BED UNRESPONSIVE TO VERBAL OR PHYSICAL STIMULI - Current Medication List Current Medications: Active Medications Acetaminophen (Tylenol Oral Solution -) 650 mg GT Q4HPO PRN PRN Reason: FEVER OR PAIN Last Admin: 10/08/16 10:41 Dose: 650 mg IV Flush (Triple Lumen Flush) 4 ml IVPUSH PRN PRN PRN Reason: Protocol Morphine Sulfate 100 mg/ (Sodium Chloride) 100 mls @ 3 mls/hr IVPB TITR ADDISON; 3 MG/HR PRN Reason: Protocol Last Admin: 10/15/16 09:28 Dose: 7 mls/hr Lorazepam (Ativan Injection -) 2 mg IVPUSH Q2H PRN PRN Reason: AGITATION Last Admin: 10/12/16 16:29 Dose: 2 mg Morphine Sulfate (Morphine Injection -) 2 mg IVPUSH Q2H PRN PRN Reason: PAIN Last Admin: 10/12/16 16:40 Dose: 2 mg - Objective Vital Signs: Vital Signs Temperature 98.3 F 10/15/16 06:00 Pulse Rate 108 H 10/15/16 06:00 Respiratory Rate 20 10/15/16 06:00 Blood Pressure 107/55 10/15/16 06:00 O2 Sat by Pulse Oximetry (%) 89 L 10/14/16 22:00 Constitutional: Yes: Severe Distress Eyes: Yes: Other HENT: Yes: WNL Neck: Yes: WNL Cardiovascular: Yes: Pulse Irregular Respiratory: Yes: Mechanically Ventilated, Other Gastrointestinal: Yes: Other Musculoskeletal: Yes: Muscle Weakness Extremities: Yes: Other Edema: Yes Integumentary: Yes: Rash, Other Wound/Incision: Yes: Dressing Dry and Intact Neurological: Yes: Pre-Existing Deficit, Unresponsive Labs: CBC, BMP 10/12/16 06:00 10/12/16 06:00 INR, PTT INR 1.46 (0.82-1.09) H 10/12/16 06:00 Problem List - Problems (1) Bacteremia due to Klebsiella pneumoniae Code(s): R78.81 - BACTEREMIA (2) Cholangitis Code(s): K83.0 - CHOLANGITIS Assessment/Plan PALLIAITVE/HOSPICE CARE AWAIT [facility] 02 SUPPORT
[2016-10-15] MEDS ORDERED: PT OWN MED DRAWER 7, Y5N ONE (22:11)
[2016-10-16] MEDS: MORPHINE 100 MG in SODIUM CHLORIDE 98 ML IVPB SCH ×3 (05:30→18:09)
--- NOTE | 2016-10-16 09:34 | PN ---
Progress Note (short form) - Note Progress Note: PATIENT IN BED NO CHANGE COMFORTABLE 02 SUPPORT MORPHINE DRIP ADVANCED DIRECTIVES Problem List - Problems (1) Bacteremia due to Klebsiella pneumoniae Code(s): R78.81 - BACTEREMIA (2) Cholangitis Code(s): K83.0 - CHOLANGITIS
[2016-10-17] MEDS: MORPHINE 100 MG in SODIUM CHLORIDE 98 ML IVPB SCH ×2 (04:51→17:47)
--- NOTE | 2016-10-17 08:15 | PN ---
Progress Note, Physician History of Present Illness: PT ON COMFORT CARE - Current Medication List Current Medications: Active Medications Acetaminophen (Tylenol Oral Solution -) 650 mg GT Q4HPO PRN PRN Reason: FEVER OR PAIN Last Admin: 10/08/16 10:41 Dose: 650 mg IV Flush (Triple Lumen Flush) 4 ml IVPUSH PRN PRN PRN Reason: Protocol Morphine Sulfate 100 mg/ (Sodium Chloride) 100 mls @ 3 mls/hr IVPB TITR ADDISON; 3 MG/HR PRN Reason: Protocol Last Admin: 10/17/16 04:51 Dose: 8 mls/hr Lorazepam (Ativan Injection -) 2 mg IVPUSH Q2H PRN PRN Reason: AGITATION Last Admin: 10/12/16 16:29 Dose: 2 mg Morphine Sulfate (Morphine Injection -) 2 mg IVPUSH Q2H PRN PRN Reason: PAIN Last Admin: 10/12/16 16:40 Dose: 2 mg - Objective Vital Signs: Vital Signs Temperature 98.8 F 10/17/16 06:00 Pulse Rate 116 H 10/17/16 06:00 Respiratory Rate 14 10/17/16 06:00 Blood Pressure 134/69 10/17/16 06:00 O2 Sat by Pulse Oximetry (%) 96 10/16/16 22:00 Cardiovascular: Yes: S1, S2 Respiratory: Yes: Rhonchi Gastrointestinal: Yes: Normal Bowel Sounds, Soft Labs: CBC, BMP 10/12/16 06:00 10/12/16 06:00 INR, PTT INR 1.46 (0.82-1.09) H 10/12/16 06:00 Problem List - Problems (1) Cholangitis Code(s): K83.0 - CHOLANGITIS (2) Cerebral palsy Code(s): G80.9 - CEREBRAL PALSY, UNSPECIFIED Qualifiers: Cerebral palsy type: unspecified type Qualified Code(s): G80.9 - Cerebral palsy, unspecified (3) Chronic respiratory failure Code(s): J96.10 - CHRONIC RESPIRATORY FAILURE, UNSP W HYPOXIA OR HYPERCAPNIA Qualifiers: Respiratory failure complication: unspecified whether with hypoxia or hypercapnia Qualified Code(s): J96.10 - Chronic respiratory failure, unspecified whether with hypoxia or hypercapnia (4) Jaundice Code(s): R17 - UNSPECIFIED JAUNDICE Assessment/Plan comfort care morphine TRACH COLLAR
[2016-10-18] MEDS: MORPHINE 100 MG in SODIUM CHLORIDE 98 ML IVPB SCH ×2 (06:00→14:23)
--- NOTE | 2016-10-18 10:12 | PN ---
Progress Note, Physician Chief Complaint: Fever of Unknown origin. History of Present Illness: Patient came in with FUO, work up showed elevated Billirubin--> Obstructive Cholecystitis. She has been on IV abx. Her sister and half sister has agreed the patient to be terminally weaned because of poor prognosis. Patient curent ly DNR/DNI on hospice care. On Morphine for pain and comfort. - Current Medication List Current Medications: Active Medications Acetaminophen (Tylenol Oral Solution -) 650 mg GT Q4HPO PRN PRN Reason: FEVER OR PAIN Last Admin: 10/08/16 10:41 Dose: 650 mg IV Flush (Triple Lumen Flush) 4 ml IVPUSH PRN PRN PRN Reason: Protocol Morphine Sulfate 100 mg/ (Sodium Chloride) 100 mls @ 3 mls/hr IVPB TITR ADDISON; 3 MG/HR PRN Reason: Protocol Last Admin: 10/18/16 06:00 Dose: 8 mls/hr Lorazepam (Ativan Injection -) 2 mg IVPUSH Q2H PRN PRN Reason: AGITATION Last Admin: 10/12/16 16:29 Dose: 2 mg Morphine Sulfate (Morphine Injection -) 2 mg IVPUSH Q2H PRN PRN Reason: PAIN Last Admin: 10/12/16 16:40 Dose: 2 mg - Objective Vital Signs: Vital Signs Temperature 100.0 F H 10/18/16 08:43 Pulse Rate 107 H 10/18/16 08:43 Respiratory Rate 16 10/18/16 08:43 Blood Pressure 137/63 10/18/16 08:43 O2 Sat by Pulse Oximetry (%) 98 10/17/16 21:00 Constitutional: Yes: Well Nourished, No Distress, Calm Respiratory: Yes: Regular Gastrointestinal: Yes: Normal Bowel Sounds Musculoskeletal: Yes: WNL Extremities: Yes: WNL Edema: No Peripheral Pulses WNL: Yes Neurological: Yes: Alert (opens eyes to name) Labs: CBC, BMP 10/12/16 06:00 10/12/16 06:00 INR, PTT INR 1.46 (0.82-1.09) H 10/12/16 06:00 Problem List - Problems (1) Hyperglycemia Assessment/Plan: Target Blood glucose below 200 mg/dl. Code(s): R73.9 - HYPERGLYCEMIA, UNSPECIFIED (2) Cerebral palsy Code(s): G80.9 - CEREBRAL PALSY, UNSPECIFIED Qualifiers: Cerebral palsy type: unspecified type Qualified Code(s): G80.9 - Cerebral palsy, unspecified (3) Chronic respiratory failure Assessment/Plan: ON TRACH MASK, TOLERATING WELL, MORPHINE. Code(s): J96.10 - CHRONIC RESPIRATORY FAILURE, UNSP W HYPOXIA OR HYPERCAPNIA Qualifiers: Respiratory failure complication: unspecified whether with hypoxia or hypercapnia Qualified Code(s): J96.10 - Chronic respiratory failure, unspecified whether with hypoxia or hypercapnia (4) Fever Assessment/Plan: AFEBRILE Code(s): R50.9 - FEVER, UNSPECIFIED (5) Anemia Assessment/Plan: Improved. Code(s): D64.9 - ANEMIA, UNSPECIFIED (6) Hospice care Assessment/Plan: ON MORPHINE DRIP, TRACH MASK, LOOKS COMFORTABLE IN BED. Assessment/Plan TRACH MASK, MORPHINE DRIP COMFORT CARE.
[2016-10-19] MEDS: MORPHINE 100 MG in SODIUM CHLORIDE 98 ML IVPB SCH ×2 (01:39→17:31)
--- NOTE | 2016-10-19 15:09 | PN ---
Progress Note, Physician Chief Complaint: Fever of Unknown origin. History of Present Illness: Patient came in with FUO, work up showed elevated Billirubin--> Obstructive Cholecystitis. She has been on IV abx. Her sister and half sister has agreed the patient to be terminally weaned because of poor prognosis. Patient curent ly DNR/DNI on hospice care. On Morphine for pain and comfort. - Current Medication List Current Medications: Active Medications Acetaminophen (Tylenol Oral Solution -) 650 mg GT Q4HPO PRN PRN Reason: FEVER OR PAIN Last Admin: 10/08/16 10:41 Dose: 650 mg IV Flush (Triple Lumen Flush) 4 ml IVPUSH PRN PRN PRN Reason: Protocol Morphine Sulfate 100 mg/ (Sodium Chloride) 100 mls @ 3 mls/hr IVPB TITR ADDISON; 3 MG/HR PRN Reason: Protocol Last Admin: 10/19/16 01:39 Dose: 8 mls/hr Lorazepam (Ativan Injection -) 2 mg IVPUSH Q2H PRN PRN Reason: AGITATION Last Admin: 10/12/16 16:29 Dose: 2 mg Morphine Sulfate (Morphine Injection -) 2 mg IVPUSH Q2H PRN PRN Reason: PAIN Last Admin: 10/12/16 16:40 Dose: 2 mg - Objective Vital Signs: Vital Signs Temperature 97.4 F L 10/19/16 14:50 Pulse Rate 70 10/19/16 14:50 Respiratory Rate 16 10/19/16 14:50 Blood Pressure 123/60 10/19/16 14:50 O2 Sat by Pulse Oximetry (%) 100 10/19/16 12:08 Constitutional: Yes: Well Nourished, No Distress, Calm Cardiovascular: Yes: Regular Rate and Rhythm Respiratory: Yes: Regular, Diminished Gastrointestinal: Yes: Normal Bowel Sounds Edema: No Labs: CBC, BMP 10/12/16 06:00 10/12/16 06:00 INR, PTT INR 1.46 (0.82-1.09) H 10/12/16 06:00 Problem List - Problems (1) Hyperglycemia Assessment/Plan: Target Blood glucose below 200 mg/dl. Code(s): R73.9 - HYPERGLYCEMIA, UNSPECIFIED (2) Cerebral palsy Code(s): G80.9 - CEREBRAL PALSY, UNSPECIFIED Qualifiers: Cerebral palsy type: unspecified type Qualified Code(s): G80.9 - Cerebral palsy, unspecified (3) Chronic respiratory failure Assessment/Plan: ON TRACH MASK, TOLERATING WELL, MORPHINE DRIP Code(s): J96.10 - CHRONIC RESPIRATORY FAILURE, UNSP W HYPOXIA OR HYPERCAPNIA Qualifiers: Respiratory failure complication: unspecified whether with hypoxia or hypercapnia Qualified Code(s): J96.10 - Chronic respiratory failure, unspecified whether with hypoxia or hypercapnia (4) Fever Assessment/Plan: AFEBRILE Code(s): R50.9 - FEVER, UNSPECIFIED (5) Hospice care Assessment/Plan: ON MORPHINE DRIP, TRACH MASK, LOOKS COMFORTABLE IN BED. NAD. TOUCHED BASE WITH SISTER ROSE MARY. MENTIONED CALVARY EVENTUALLY AFTER COMFORT WEANING. TUBE FEEDING IS STILL UNDER QUESTIONING. Assessment/Plan ON [facility] MORPHINE DRIP MENTIONED CALVARY TO SISTER ROSE MARY AFTER COMFORT WEANING OBSERVE FOR ANY SIGNS OF DISTRESS TO START TUBE FEEDING OR NOT IS STILL UNDER QUESTIONING, DECISION PER HOSPICE AND SISTER ROSE MARY.
[2016-10-19] MEDS ORDERED: ACETAMINOPHEN 650 MG SUPP.RECT PR PRN (15:20)
[2016-10-20] MEDS: MORPHINE 100 MG in SODIUM CHLORIDE 98 ML IVPB SCH ×2 (02:57→15:42)
--- NOTE | 2016-10-20 09:38 | PN ---
Progress Note, Physician Chief Complaint: Fever of Unknown origin. History of Present Illness: Patient came in with FUO, work up showed elevated Billirubin--> Obstructive Cholecystitis. She has been on IV abx. Her sister and half sister has agreed the patient to be terminally weaned because of poor prognosis. Patient curent ly DNR/DNI on hospice care. On Morphine for pain and comfort. - Current Medication List Current Medications: Active Medications Acetaminophen (Tylenol Oral Solution -) 650 mg GT Q4HPO PRN PRN Reason: FEVER OR PAIN Last Admin: 10/08/16 10:41 Dose: 650 mg Acetaminophen (Tylenol Suppository -) 650 mg MN Q6H PRN PRN Reason: FEVER OR PAIN IV Flush (Triple Lumen Flush) 4 ml IVPUSH PRN PRN PRN Reason: Protocol Morphine Sulfate 100 mg/ (Sodium Chloride) 100 mls @ 3 mls/hr IVPB TITR ADDISON; 3 MG/HR PRN Reason: Protocol Last Admin: 10/20/16 02:57 Dose: 8 mls/hr Lorazepam (Ativan Injection -) 2 mg IVPUSH Q2H PRN PRN Reason: AGITATION Last Admin: 10/12/16 16:29 Dose: 2 mg Morphine Sulfate (Morphine Injection -) 2 mg IVPUSH Q2H PRN PRN Reason: PAIN Last Admin: 10/12/16 16:40 Dose: 2 mg - Objective Vital Signs: Vital Signs Temperature 97.4 F L 10/20/16 06:00 Pulse Rate 97 H 10/20/16 06:00 Respiratory Rate 16 10/20/16 06:00 Blood Pressure 136/83 10/20/16 06:00 O2 Sat by Pulse Oximetry (%) 100 10/19/16 21:00 Constitutional: Yes: No Distress, Calm Cardiovascular: Yes: Regular Rate and Rhythm Respiratory: Yes: Regular Gastrointestinal: Yes: Hypoactive Bowel Sounds Edema: No Neurological: Yes: Alert (RESPONDS TO NAME) Labs: CBC, BMP 10/12/16 06:00 10/12/16 06:00 INR, PTT INR 1.46 (0.82-1.09) H 10/12/16 06:00 Problem List - Problems (1) Hyperglycemia Assessment/Plan: RESOLVED Code(s): R73.9 - HYPERGLYCEMIA, UNSPECIFIED (2) Cerebral palsy Code(s): G80.9 - CEREBRAL PALSY, UNSPECIFIED Qualifiers: Cerebral palsy type: unspecified type Qualified Code(s): G80.9 - Cerebral palsy, unspecified (3) Chronic respiratory failure Code(s): J96.10 - CHRONIC RESPIRATORY FAILURE, UNSP W HYPOXIA OR HYPERCAPNIA Qualifiers: Respiratory failure complication: unspecified whether with hypoxia or hypercapnia Qualified Code(s): J96.10 - Chronic respiratory failure, unspecified whether with hypoxia or hypercapnia (4) Hospice care Assessment/Plan: ON MORPHINE DRIP AT 8 MG/HOUR, TRACH MASK, LOOKS COMFORTABLE IN BED. NAD. NO TUBE FEEDING. VITALS SIGNS CHANGED TO TEMPERATURE CHECK BID ONLY. ACETAMINOPHEN FOR FEVER OVER 100.0F. Assessment/Plan ON MORPHINE DRIP AT 8 MG/HOUR, TRACH MASK, LOOKS COMFORTABLE IN BED. NAD. NO TUBE FEEDING. VITALS SIGNS CHANGED TO TEMPERATURE CHECK BID ONLY. ACETAMINOPHEN FOR FEVER OVER 100.0F. PALLIATIVE CARE ON BOARD ALONG WITH [facility]
[2016-10-21] MEDS: MORPHINE 100 MG in SODIUM CHLORIDE 98 ML IVPB SCH ×2 (03:21→15:58)
--- NOTE | 2016-10-21 10:30 | PN ---
Progress Note, Physician Chief Complaint: Fever of Unknown origin. History of Present Illness: Patient came in with FUO, work up showed elevated Billirubin--> Obstructive Cholecystitis. She has been on IV abx. Her sister and half sister has agreed the patient to be terminally weaned because of poor prognosis. Patient currently DNR/DNI on hospice care. On Morphine for pain and comfort. Vitals: temp only - Current Medication List Current Medications: Active Medications Acetaminophen (Tylenol Oral Solution -) 650 mg GT Q4HPO PRN PRN Reason: FEVER OR PAIN Last Admin: 10/08/16 10:41 Dose: 650 mg Acetaminophen (Tylenol Suppository -) 650 mg [place] Q6H PRN PRN Reason: FEVER OR PAIN IV Flush (Triple Lumen Flush) 4 ml IVPUSH PRN PRN PRN Reason: Protocol Morphine Sulfate 100 mg/ (Sodium Chloride) 100 mls @ 3 mls/hr IVPB TITR ADDISON; 3 MG/HR PRN Reason: Protocol Last Admin: 10/21/16 03:21 Dose: 8 mls/hr Lorazepam (Ativan Injection -) 2 mg IVPUSH Q2H PRN PRN Reason: AGITATION Last Admin: 10/12/16 16:29 Dose: 2 mg - Objective Vital Signs: Vital Signs Temperature 97.9 F 10/20/16 18:00 Pulse Rate 94 H 10/20/16 18:00 Respiratory Rate 18 10/20/16 22:00 Blood Pressure 115/71 10/20/16 18:00 O2 Sat by Pulse Oximetry (%) 94 L 10/20/16 21:00 Constitutional: Yes: No Distress, Calm Cardiovascular: Yes: Regular Rate and Rhythm Respiratory: Yes: Regular Labs: CBC, BMP 10/12/16 06:00 10/12/16 06:00 INR, PTT INR 1.46 (0.82-1.09) H 10/12/16 06:00 Problem List - Problems (1) Cerebral palsy Code(s): G80.9 - CEREBRAL PALSY, UNSPECIFIED Qualifiers: Cerebral palsy type: unspecified type Qualified Code(s): G80.9 - Cerebral palsy, unspecified (2) Chronic respiratory failure Assessment/Plan: ON TRACH MASK, TOLERATING WELL, MORPHINE DRIP AT 8MG/HR Code(s): J96.10 - CHRONIC RESPIRATORY FAILURE, UNSP W HYPOXIA OR HYPERCAPNIA Qualifiers: Respiratory failure complication: unspecified whether with hypoxia or hypercapnia Qualified Code(s): J96.10 - Chronic respiratory failure, unspecified whether with hypoxia or hypercapnia (3) Hospice care Assessment/Plan: ON MORPHINE DRIP AT 8 MG/HOUR, TRACH MASK, LOOKS COMFORTABLE IN BED. NAD. NO TUBE FEEDING. VITALS SIGNS CHANGED TO TEMPERATURE CHECK BID ONLY. ACETAMINOPHEN FOR FEVER OVER 100.0F. Assessment/Plan [facility] ON THE CASE MORPHINE DRIP VITALS:TEMP ONLY COMFORT CARE
[2016-10-22] MEDS: MORPHINE 100 MG in SODIUM CHLORIDE 98 ML IVPB SCH ×2 (06:41→17:35)
--- NOTE | 2016-10-22 14:22 | PN ---
Progress Note, Physician Chief Complaint: Fever of Unknown origin. History of Present Illness: Patient came in with FUO, work up showed elevated Billirubin--> Obstructive Cholecystitis. She has been on IV abx. Her sister and half sister has agreed the patient to be terminally weaned because of poor prognosis. Patient currently DNR/DNI on hospice care. On Morphine for pain and comfort. Vitals: temp only - Current Medication List Current Medications: Active Medications Acetaminophen (Tylenol Oral Solution -) 650 mg GT Q4HPO PRN PRN Reason: FEVER OR PAIN Last Admin: 10/08/16 10:41 Dose: 650 mg Acetaminophen (Tylenol Suppository -) 650 mg [place] Q6H PRN PRN Reason: FEVER OR PAIN IV Flush (Triple Lumen Flush) 4 ml IVPUSH PRN PRN PRN Reason: Protocol Morphine Sulfate 100 mg/ (Sodium Chloride) 100 mls @ 3 mls/hr IVPB TITR ADDISON; 3 MG/HR PRN Reason: Protocol Last Admin: 10/22/16 06:41 Dose: 8 mls/hr Lorazepam (Ativan Injection -) 2 mg IVPUSH Q2H PRN PRN Reason: AGITATION Last Admin: 10/12/16 16:29 Dose: 2 mg - Objective Vital Signs: Vital Signs Temperature 97.7 F 10/21/16 10:00 Pulse Rate 94 H 10/21/16 17:42 Respiratory Rate 24 10/22/16 09:00 Blood Pressure 117/68 10/21/16 10:00 O2 Sat by Pulse Oximetry (%) 96 10/22/16 09:00 Constitutional: Yes: No Distress, Calm Cardiovascular: Yes: Regular Rate and Rhythm Respiratory: Yes: Regular Gastrointestinal: Yes: Hypoactive Bowel Sounds Labs: CBC, BMP 10/12/16 06:00 10/12/16 06:00 INR, PTT INR 1.46 (0.82-1.09) H 10/12/16 06:00 Problem List - Problems (1) Cerebral palsy Code(s): G80.9 - CEREBRAL PALSY, UNSPECIFIED Qualifiers: Cerebral palsy type: unspecified type Qualified Code(s): G80.9 - Cerebral palsy, unspecified (2) Chronic respiratory failure Assessment/Plan: ON TRACH MASK, TOLERATING WELL, MORPHINE DRIP AT 8MG/HR Code(s): J96.10 - CHRONIC RESPIRATORY FAILURE, UNSP W HYPOXIA OR HYPERCAPNIA Qualifiers: Respiratory failure complication: unspecified whether with hypoxia or hypercapnia Qualified Code(s): J96.10 - Chronic respiratory failure, unspecified whether with hypoxia or hypercapnia (3) Hospice care Assessment/Plan: ON MORPHINE DRIP AT 8 MG/HOUR, TRACH MASK, LOOKS COMFORTABLE IN BED. NAD. NO TUBE FEEDING. VITALS SIGNS CHANGED TO TEMPERATURE CHECK BID ONLY. ACETAMINOPHEN FOR FEVER OVER 100.0F. Assessment/Plan [facility] ON THE CASE MORPHINE DRIP VITALS:TEMP ONLY COMFORT CARE
[2016-10-23] MEDS: MORPHINE 100 MG in SODIUM CHLORIDE 98 ML IVPB SCH (03:00)
--- NOTE | 2016-10-23 17:42 | PN ---
Progress Note, Physician Chief Complaint: Fever of Unknown origin. History of Present Illness: Patient came in with FUO, work up showed elevated Billirubin--> Obstructive Cholecystitis. She has been on IV abx. Her sister and half sister has agreed the patient to be terminally weaned because of poor prognosis. Patient currently DNR/DNI on hospice care. On Morphine for pain and comfort. Vitals: temp only - Current Medication List Current Medications: Active Medications Acetaminophen (Tylenol Oral Solution -) 650 mg GT Q4HPO PRN PRN Reason: FEVER OR PAIN Last Admin: 10/08/16 10:41 Dose: 650 mg Acetaminophen (Tylenol Suppository -) 650 mg [place] Q6H PRN PRN Reason: FEVER OR PAIN IV Flush (Triple Lumen Flush) 4 ml IVPUSH PRN PRN PRN Reason: Protocol Morphine Sulfate 100 mg/ (Sodium Chloride) 100 mls @ 3 mls/hr IVPB TITR ADDISON; 3 MG/HR PRN Reason: Protocol Last Admin: 10/23/16 03:00 Dose: 8 mls/hr Morphine Sulfate 100 mg/ (Sodium Chloride) 100 mls @ 3 mls/hr IVPB TITR ADDISON; 3 MG/HR PRN Reason: Protocol Last Admin: 10/22/16 17:35 Dose: 8 mls/hr - Objective Vital Signs: Vital Signs Temperature 99.3 F 10/23/16 06:00 Pulse Rate 110 H 10/23/16 06:00 Respiratory Rate 22 10/23/16 09:00 Blood Pressure 112/58 10/23/16 06:00 O2 Sat by Pulse Oximetry (%) 98 10/22/16 21:00 Constitutional: Yes: No Distress, Calm Respiratory: Yes: Regular Gastrointestinal: Yes: Normal Bowel Sounds Labs: CBC, BMP 10/12/16 06:00 10/12/16 06:00 INR, PTT INR 1.46 (0.82-1.09) H 10/12/16 06:00 Problem List - Problems (1) Cerebral palsy Code(s): G80.9 - CEREBRAL PALSY, UNSPECIFIED Qualifiers: Cerebral palsy type: unspecified type Qualified Code(s): G80.9 - Cerebral palsy, unspecified (2) Chronic respiratory failure Assessment/Plan: ON TRACH MASK, TOLERATING WELL, MORPHINE DRIP AT 8MG/HR Code(s): J96.10 - CHRONIC RESPIRATORY FAILURE, UNSP W HYPOXIA OR HYPERCAPNIA Qualifiers: Respiratory failure complication: unspecified whether with hypoxia or hypercapnia Qualified Code(s): J96.10 - Chronic respiratory failure, unspecified whether with hypoxia or hypercapnia (3) Hospice care Assessment/Plan: ON MORPHINE DRIP AT 8 MG/HOUR, TRACH MASK, LOOKS COMFORTABLE IN BED. NAD. NO TUBE FEEDING. VITALS SIGNS CHANGED TO TEMPERATURE CHECK BID ONLY. ACETAMINOPHEN FOR FEVER OVER 100.0F. Assessment/Plan [facility] ON THE CASE MORPHINE DRIP VITALS:TEMP ONLY COMFORT CARE
--- NOTE | 2016-10-24 10:34 | PN ---
Progress Note, Physician Chief Complaint: in bed no distress trach mask no fever non verbal History of Present Illness: curently Dnr/dni hospice - Current Medication List Current Medications: Active Medications Acetaminophen (Tylenol Oral Solution -) 650 mg GT Q4HPO PRN PRN Reason: FEVER OR PAIN Last Admin: 10/08/16 10:41 Dose: 650 mg Acetaminophen (Tylenol Suppository -) 650 mg [place] Q6H PRN PRN Reason: FEVER OR PAIN IV Flush (Triple Lumen Flush) 4 ml IVPUSH PRN PRN PRN Reason: Protocol Morphine Sulfate 100 mg/ (Sodium Chloride) 100 mls @ 3 mls/hr IVPB TITR ADDISON; 3 MG/HR PRN Reason: Protocol Last Admin: 10/23/16 03:00 Dose: 8 mls/hr Morphine Sulfate 100 mg/ (Sodium Chloride) 100 mls @ 3 mls/hr IVPB TITR ADDISON; 3 MG/HR PRN Reason: Protocol Last Admin: 10/22/16 17:35 Dose: 8 mls/hr - Objective Vital Signs: Vital Signs Temperature 989 F H 10/24/16 07:45 Pulse Rate 111 H 10/24/16 07:45 Respiratory Rate 18 10/23/16 22:00 Blood Pressure 112/60 10/24/16 07:45 O2 Sat by Pulse Oximetry (%) 98 10/22/16 21:00 Constitutional: Yes: Calm Neck: Yes: Other (trach) Cardiovascular: Yes: Regular Rate and Rhythm, S1, S2 Respiratory: Yes: CTA Bilaterally Gastrointestinal: Yes: Soft Genitourinary: Yes: [place] Present Labs: CBC, BMP 10/12/16 06:00 10/12/16 06:00 INR, PTT INR 1.46 (0.82-1.09) H 10/12/16 06:00 Problem List - Problems (1) Bacteremia due to Klebsiella pneumoniae Assessment/Plan: stop abx Code(s): R78.81 - BACTEREMIA (2) Cholangitis Assessment/Plan: dnr dni no abx no blood draws comfort care Code(s): K83.0 - CHOLANGITIS (3) Cerebral palsy Assessment/Plan: off the vent compassionate weaning- trach mask on morphine drip hospice on board Code(s): G80.9 - CEREBRAL PALSY, UNSPECIFIED Qualifiers: Cerebral palsy type: unspecified type Qualified Code(s): G80.9 - Cerebral palsy, unspecified (4) Chronic respiratory failure Assessment/Plan: off the vent compassionate weaning dnr dni morphine drip Code(s): J96.10 - CHRONIC RESPIRATORY FAILURE, UNSP W HYPOXIA OR HYPERCAPNIA Qualifiers: Respiratory failure complication: unspecified whether with hypoxia or hypercapnia Qualified Code(s): J96.10 - Chronic respiratory failure, unspecified whether with hypoxia or hypercapnia (5) Hypotension Assessment/Plan: comfort care Code(s): I95.9 - HYPOTENSION, UNSPECIFIED (6) Anemia Assessment/Plan: comfort care Code(s): D64.9 - ANEMIA, UNSPECIFIED Assessment/Plan [facility] on board morphine drip west cath trach mask
[2016-10-24] MEDS: MORPHINE 100 MG in SODIUM CHLORIDE 98 ML IVPB SCH ×3 (10:35→21:23)
[2016-10-25] MEDS: MORPHINE 100 MG in SODIUM CHLORIDE 98 ML IVPB SCH ×3 (10:37→23:19)
[2016-10-25] MEDS: SCOPOLAMINE HYDROBROMIDE 1 PATCH PATCH.TD72 TD SCH (17:51)
[2016-10-26] MEDS: MORPHINE 100 MG in SODIUM CHLORIDE 98 ML IVPB SCH (12:45)
--- NOTE | 2016-10-26 14:05 | PN ---
Progress Note, Physician Chief Complaint: Fever of Unknown origin. History of Present Illness: Patient came in with FUO, work up showed elevated Billirubin--> Obstructive Cholecystitis. She has been on IV abx. Her sister and half sister has agreed the patient to be terminally weaned because of poor prognosis. Patient currently DNR/DNI on hospice care. On Morphine for pain and comfort. Vitals: temp only - Current Medication List Current Medications: Active Medications Acetaminophen (Tylenol Oral Solution -) 650 mg GT Q4HPO PRN PRN Reason: FEVER OR PAIN Last Admin: 10/08/16 10:41 Dose: 650 mg Acetaminophen (Tylenol Suppository -) 650 mg [place] Q6H PRN PRN Reason: FEVER OR PAIN IV Flush (Triple Lumen Flush) 4 ml IVPUSH PRN PRN PRN Reason: Protocol Morphine Sulfate 100 mg/ (Sodium Chloride) 100 mls @ 3 mls/hr IVPB TITR ADDISON; 3 MG/HR PRN Reason: Protocol Last Admin: 10/26/16 12:45 Dose: 8 mls/hr Scopolamine HBr (Transderm-Scop -) 1 patch TD Q72H ADDISON Last Admin: 10/25/16 17:51 Dose: 1 patch - Objective Vital Signs: Vital Signs Temperature 97.5 F L 10/26/16 07:00 Pulse Rate 68 10/26/16 10:25 Respiratory Rate 20 10/25/16 08:55 Blood Pressure 129/79 10/26/16 07:00 O2 Sat by Pulse Oximetry (%) 99 10/26/16 10:25 Constitutional: Yes: No Distress, Calm Respiratory: Yes: Regular Gastrointestinal: Yes: Normal Bowel Sounds Edema: No Labs: CBC, BMP 10/12/16 06:00 10/12/16 06:00 INR, PTT INR 1.46 (0.82-1.09) H 10/12/16 06:00 Problem List - Problems (1) Cerebral palsy Code(s): G80.9 - CEREBRAL PALSY, UNSPECIFIED Qualifiers: Cerebral palsy type: unspecified type Qualified Code(s): G80.9 - Cerebral palsy, unspecified (2) Chronic respiratory failure Assessment/Plan: ON TRACH MASK, TOLERATING WELL, MORPHINE DRIP AT 8MG/HR Code(s): J96.10 - CHRONIC RESPIRATORY FAILURE, UNSP W HYPOXIA OR HYPERCAPNIA Qualifiers: Respiratory failure complication: unspecified whether with hypoxia or hypercapnia Qualified Code(s): J96.10 - Chronic respiratory failure, unspecified whether with hypoxia or hypercapnia (3) Hospice care Assessment/Plan: ON MORPHINE DRIP AT 8 MG/HOUR, TRACH MASK, LOOKS COMFORTABLE IN BED. NAD. NO TUBE FEEDING. VITALS SIGNS CHANGED TO TEMPERATURE CHECK BID ONLY. ACETAMINOPHEN FOR FEVER OVER 100.0F. Assessment/Plan [facility] ON THE CASE MORPHINE DRIP VITALS:TEMP ONLY COMFORT CARE
--- NOTE | 2016-10-27 11:29 | PN ---
Progress Note, Physician Chief Complaint: no fever eyes open DNR on hospice morphine drip History of Present Illness: curently Dnr/dni hospice - Current Medication List Current Medications: Active Medications Acetaminophen (Tylenol Oral Solution -) 650 mg GT Q4HPO PRN PRN Reason: FEVER OR PAIN Last Admin: 10/08/16 10:41 Dose: 650 mg Acetaminophen (Tylenol Suppository -) 650 mg [place] Q6H PRN PRN Reason: FEVER OR PAIN IV Flush (Triple Lumen Flush) 4 ml IVPUSH PRN PRN PRN Reason: Protocol Morphine Sulfate 100 mg/ (Sodium Chloride) 100 mls @ 3 mls/hr IVPB TITR ADDISON; 3 MG/HR PRN Reason: Protocol Last Admin: 10/26/16 12:45 Dose: 8 mls/hr Scopolamine HBr (Transderm-Scop -) 1 patch TD Q72H ADDISON Last Admin: 10/25/16 17:51 Dose: 1 patch - Objective Vital Signs: Vital Signs Temperature 97.5 F L 10/26/16 07:00 Pulse Rate 68 10/26/16 10:25 Respiratory Rate 20 10/26/16 21:00 Blood Pressure 129/79 10/26/16 07:00 O2 Sat by Pulse Oximetry (%) 99 10/26/16 10:25 Constitutional: Yes: Calm Neck: Yes: Trachea Midline, Other (trach) Cardiovascular: Yes: Regular Rate and Rhythm, S1, S2 Respiratory: Yes: CTA Bilaterally Gastrointestinal: Yes: Soft Labs: CBC, BMP 10/12/16 06:00 10/12/16 06:00 INR, PTT INR 1.46 (0.82-1.09) H 10/12/16 06:00 Problem List - Problems (1) Bacteremia due to Klebsiella pneumoniae Assessment/Plan: stop abx Code(s): R78.81 - BACTEREMIA (2) Cholangitis Assessment/Plan: dnr dni no abx no blood draws comfort care Code(s): K83.0 - CHOLANGITIS (3) Cerebral palsy Assessment/Plan: off the vent compassionate weaning- trach mask on morphine drip hospice on board Code(s): G80.9 - CEREBRAL PALSY, UNSPECIFIED Qualifiers: Cerebral palsy type: unspecified type Qualified Code(s): G80.9 - Cerebral palsy, unspecified (4) Chronic respiratory failure Assessment/Plan: off the vent compassionate weaning dnr dni morphine drip [facility] on board- processing application for [facility] Code(s): J96.10 - CHRONIC RESPIRATORY FAILURE, UNSP W HYPOXIA OR HYPERCAPNIA Qualifiers: Respiratory failure complication: unspecified whether with hypoxia or hypercapnia Qualified Code(s): J96.10 - Chronic respiratory failure, unspecified whether with hypoxia or hypercapnia (5) Hypotension Assessment/Plan: comfort care Code(s): I95.9 - HYPOTENSION, UNSPECIFIED (6) Anemia Assessment/Plan: comfort care Code(s): D64.9 - ANEMIA, UNSPECIFIED Assessment/Plan [facility] on board morphine drip west cath trach mask
[2016-10-28] MEDS: MORPHINE 100 MG in SODIUM CHLORIDE 98 ML IVPB SCH (00:57)
--- NOTE | 2016-10-28 12:53 | PN ---
Progress Note, Physician Chief Complaint: eyes half closed today shallow breaths - Current Medication List Current Medications: Active Medications Acetaminophen (Tylenol Oral Solution -) 650 mg GT Q4HPO PRN PRN Reason: FEVER OR PAIN Last Admin: 10/08/16 10:41 Dose: 650 mg Acetaminophen (Tylenol Suppository -) 650 mg [place] Q6H PRN PRN Reason: FEVER OR PAIN IV Flush (Triple Lumen Flush) 4 ml IVPUSH PRN PRN PRN Reason: Protocol Morphine Sulfate 100 mg/ (Sodium Chloride) 100 mls @ 3 mls/hr IVPB TITR ADDISON; 3 MG/HR PRN Reason: Protocol Last Admin: 10/28/16 00:57 Dose: 8 mls/hr Scopolamine HBr (Transderm-Scop -) 1 patch TD Q72H ADDISON Last Admin: 10/25/16 17:51 Dose: 1 patch - Objective Vital Signs: Vital Signs Temperature 98.4 F 10/28/16 06:43 Pulse Rate 62 10/28/16 11:15 Respiratory Rate 18 10/28/16 06:43 Blood Pressure 89/35 10/28/16 06:43 O2 Sat by Pulse Oximetry (%) 97 10/28/16 11:15 Constitutional: Yes: Calm Cardiovascular: Yes: Regular Rate and Rhythm, S1, S2 Respiratory: Yes: Other (shallow breaths) Gastrointestinal: Yes: Soft Labs: CBC, BMP 10/12/16 06:00 10/12/16 06:00 INR, PTT INR 1.46 (0.82-1.09) H 10/12/16 06:00 Problem List - Problems (1) Bacteremia due to Klebsiella pneumoniae Assessment/Plan: stop abx Code(s): R78.81 - BACTEREMIA (2) Cholangitis Assessment/Plan: dnr dni no abx no blood draws comfort care Code(s): K83.0 - CHOLANGITIS (3) Cerebral palsy Assessment/Plan: off the vent compassionate weaning- trach mask on morphine drip hospice on board Qualifiers: Cerebral palsy type: unspecified type Qualified Code(s): G80.9 - Cerebral palsy, unspecified (4) Chronic respiratory failure Assessment/Plan: off the vent compassionate weaning dnr dni morphine drip [facility] on board- processing application for [facility] Code(s): J96.10 - CHRONIC RESPIRATORY FAILURE, UNSP W HYPOXIA OR HYPERCAPNIA Qualifiers: Respiratory failure complication: unspecified whether with hypoxia or hypercapnia Qualified Code(s): J96.10 - Chronic respiratory failure, unspecified whether with hypoxia or hypercapnia (5) Hypotension Assessment/Plan: comfort care Code(s): I95.9 - HYPOTENSION, UNSPECIFIED (6) Anemia Assessment/Plan: comfort care Code(s): D64.9 - ANEMIA, UNSPECIFIED Assessment/Plan [facility] Hospice
[2016-10-28] MEDS ORDERED: PT OWN MED DRAWER 7, Y5N ONE (13:53)
[2016-10-28] MEDS: SCOPOLAMINE HYDROBROMIDE 1 PATCH PATCH.TD72 TD SCH (14:28)
--- NOTE | 2016-10-29 08:27 | PN ---
Progress Note, Physician History of Present Illness: PT ON COMFORT CARE AWAKE AND ALERT - Current Medication List Current Medications: Active Medications Acetaminophen (Tylenol Oral Solution -) 650 mg GT Q4HPO PRN PRN Reason: FEVER OR PAIN Last Admin: 10/08/16 10:41 Dose: 650 mg Acetaminophen (Tylenol Suppository -) 650 mg [place] Q6H PRN PRN Reason: FEVER OR PAIN IV Flush (Triple Lumen Flush) 4 ml IVPUSH PRN PRN PRN Reason: Protocol Morphine Sulfate 100 mg/ (Sodium Chloride) 100 mls @ 3 mls/hr IVPB TITR ADDISON; 3 MG/HR PRN Reason: Protocol Last Admin: 10/28/16 00:57 Dose: 8 mls/hr Scopolamine HBr (Transderm-Scop -) 1 patch TD Q72H ADDISON Last Admin: 10/28/16 14:28 Dose: 1 patch - Objective Vital Signs: Vital Signs Temperature 98.6 F 10/28/16 22:00 Pulse Rate 62 10/28/16 22:00 Respiratory Rate 20 10/28/16 22:00 Blood Pressure 130/58 10/28/16 22:00 O2 Sat by Pulse Oximetry (%) 100 10/28/16 21:00 Cardiovascular: Yes: Regular Rate and Rhythm Respiratory: Yes: Regular, CTA Bilaterally Gastrointestinal: Yes: Normal Bowel Sounds, Soft Labs: CBC, BMP 10/12/16 06:00 10/12/16 06:00 INR, PTT INR 1.46 (0.82-1.09) H 10/12/16 06:00 Problem List - Problems (1) Cholangitis Code(s): K83.0 - CHOLANGITIS (2) Cerebral palsy Code(s): G80.9 - CEREBRAL PALSY, UNSPECIFIED Qualifiers: Cerebral palsy type: unspecified type Qualified Code(s): G80.9 - Cerebral palsy, unspecified (3) Chronic respiratory failure Code(s): J96.10 - CHRONIC RESPIRATORY FAILURE, UNSP W HYPOXIA OR HYPERCAPNIA Qualifiers: Respiratory failure complication: unspecified whether with hypoxia or hypercapnia Qualified Code(s): J96.10 - Chronic respiratory failure, unspecified whether with hypoxia or hypercapnia (4) Jaundice Code(s): R17 - UNSPECIFIED JAUNDICE Assessment/Plan - Problems (1) Bacteremia due to Klebsiella pneumoniae Assessment/Plan: stop abx Code(s): R78.81 - BACTEREMIA (2) Cholangitis Assessment/Plan: dnr dni no abx no blood draws comfort care Code(s): K83.0 - CHOLANGITIS (3) Cerebral palsy Assessment/Plan: off the vent compassionate weaning- trach mask on morphine drip hospice on board Qualifiers: Cerebral palsy type: unspecified type Qualified Code(s): G80.9 - Cerebral palsy, unspecified (4) Chronic respiratory failure Assessment/Plan: off the vent compassionate weaning dnr dni morphine drip [facility] on board- processing application for [facility] Code(s): J96.10 - CHRONIC RESPIRATORY FAILURE, UNSP W HYPOXIA OR HYPERCAPNIA Qualifiers: Respiratory failure complication: unspecified whether with hypoxia or hypercapnia Qualified Code(s): J96.10 - Chronic respiratory failure, unspecified whether with hypoxia or hypercapnia (5) Hypotension Assessment/Plan: comfort care Code(s): I95.9 - HYPOTENSION, UNSPECIFIED (6) Anemia Assessment/Plan: comfort care Code(s): D64.9 - ANEMIA, UNSPECIFIED Assessment/Plan comfort care Hospice I LEFT MESSAGE FOR SISTER TO DISCUSS FURTHER PLAN REGARDING STARTING FEEDINGS AND CONTINUE COMFORT CARE DNR/DNI
[2016-10-29 09:32] LABS: BASOPHIL 0.8 % (0-2.0); EOSINOPHIL 1.9 % (0-4.5); MCHC 30.5 g/dl (32.0-36.0); MEAN CELL VOLUME 88.7 fl (80-96); MEAN PLT VOLUME 7.9 fl (7.5-11.1); NEUTROPHILS 51.4 % (42.8-82.8); PLATELET COUNT 130 K/MM3 (134-434); RDW 21.5 % (11.6-15.6); WHITE BLOOD COUNT 3.6 K/mm3 (4.0-10.0)
[2016-10-29 09:54] LABS: ALBUMIN 2.3 g/dl (3.4-5.0); ANION GAP 8 (8-16); BILIRUBIN,TOTAL 1.6 mg/dL (0.2-1.0); CO2 39 mmol/L (21-32); CREATININE 0.3 mg/dL (0.55-1.02); GLUCOSE,RANDOM 71 mg/dL (74-106); SGOT/AST 32 U/L (15-37); SGPT/ALT 11 U/L (12-78); TOT PROT 6.3 g/dl (6.4-8.2)
[2016-10-29 09:55] LABS: ALK PHOS 159 U/L (45-117)
[2016-10-29] MEDS: MORPHINE 100 MG in SODIUM CHLORIDE 98 ML IVPB SCH (12:32)
[2016-10-29] MEDS ORDERED: POTASSIUM CHLORIDE ORAL LIQUID 20 MEQ/15 ML PO ONE (15:03)
[2016-10-29] MEDS ORDERED: POTASSIUM CHLORIDE ORAL LIQUID 20 MEQ/15 ML PEG ONE (15:15)
[2016-10-29] MEDS: SCOPOLAMINE HYDROBROMIDE 1 PATCH PATCH.TD72 TD SCH (18:12)
[2016-10-30] MEDS: MORPHINE 100 MG in SODIUM CHLORIDE 98 ML IVPB SCH ×2 (01:27→14:05)
--- NOTE | 2016-10-30 10:16 | PN ---
Progress Note, Physician History of Present Illness: PT ON COMFORT CARE AWAKE AND ALERT - Current Medication List Current Medications: Active Medications Acetaminophen (Tylenol Oral Solution -) 650 mg GT Q4HPO PRN PRN Reason: FEVER OR PAIN Last Admin: 10/08/16 10:41 Dose: 650 mg Acetaminophen (Tylenol Suppository -) 650 mg [place] Q6H PRN PRN Reason: FEVER OR PAIN IV Flush (Triple Lumen Flush) 4 ml IVPUSH PRN PRN PRN Reason: Protocol Last Admin: 10/29/16 17:03 Dose: 4 ml Morphine Sulfate 100 mg/ (Sodium Chloride) 100 mls @ 3 mls/hr IVPB TITR ADDISON; 3 MG/HR PRN Reason: Protocol Last Admin: 10/30/16 01:27 Dose: 8 mls/hr Scopolamine HBr (Transderm-Scop -) 1 patch TD Q72H ADDISON Last Admin: 10/29/16 18:12 Dose: 1 patch - Objective Vital Signs: Vital Signs Temperature 98.2 F 10/29/16 22:00 Pulse Rate 74 10/29/16 22:00 Respiratory Rate 18 10/29/16 22:00 Blood Pressure 117/62 10/29/16 22:00 O2 Sat by Pulse Oximetry (%) 100 10/29/16 21:00 Cardiovascular: Yes: S1, S2 Respiratory: Yes: Regular, CTA Bilaterally, Other (TRACH) Gastrointestinal: Yes: Normal Bowel Sounds, Soft Labs: CBC, BMP 10/29/16 09:10 10/29/16 09:10 INR, PTT INR 1.46 (0.82-1.09) H 10/12/16 06:00 Problem List - Problems (1) Cholangitis Code(s): K83.0 - CHOLANGITIS (2) Cerebral palsy Code(s): G80.9 - CEREBRAL PALSY, UNSPECIFIED Qualifiers: Cerebral palsy type: unspecified type Qualified Code(s): G80.9 - Cerebral palsy, unspecified (3) Chronic respiratory failure Code(s): J96.10 - CHRONIC RESPIRATORY FAILURE, UNSP W HYPOXIA OR HYPERCAPNIA Qualifiers: Respiratory failure complication: unspecified whether with hypoxia or hypercapnia Qualified Code(s): J96.10 - Chronic respiratory failure, unspecified whether with hypoxia or hypercapnia (4) Jaundice Code(s): R17 - UNSPECIFIED JAUNDICE Assessment/Plan - Problems (1) Bacteremia due to Klebsiella pneumoniae Assessment/Plan: stop abx Code(s): R78.81 - BACTEREMIA (2) Cholangitis Assessment/Plan: dnr dni no abx no blood draws comfort care Code(s): K83.0 - CHOLANGITIS (3) Cerebral palsy Assessment/Plan: off the vent compassionate weaning- trach mask on morphine drip hospice on board Qualifiers: Cerebral palsy type: unspecified type Qualified Code(s): G80.9 - Cerebral palsy, unspecified (4) Chronic respiratory failure Assessment/Plan: off the vent compassionate weaning dnr dni morphine drip [facility] on board- processing application for [facility] Code(s): J96.10 - CHRONIC RESPIRATORY FAILURE, UNSP W HYPOXIA OR HYPERCAPNIA Qualifiers: Respiratory failure complication: unspecified whether with hypoxia or hypercapnia Qualified Code(s): J96.10 - Chronic respiratory failure, unspecified whether with hypoxia or hypercapnia (5) Hypotension Assessment/Plan: comfort care Code(s): I95.9 - HYPOTENSION, UNSPECIFIED (6) Anemia Assessment/Plan: comfort care Code(s): D64.9 - ANEMIA, UNSPECIFIED Assessment/Plan comfort care Hospice I LEFT MESSAGE FOR SISTER TO DISCUSS FURTHER PLAN REGARDING STARTING FEEDINGS AND CONTINUE COMFORT CARE DNR/DNI
[2016-10-30 11:24] LABS: ALBUMIN 2.2 g/dl (3.4-5.0); ALK PHOS 159 U/L (45-117); ANION GAP 7 (8-16); BILIRUBIN,TOTAL 1.2 mg/dL (0.2-1.0); CO2 36 mmol/L (21-32); CREATININE 0.4 mg/dL (0.55-1.02); GLUCOSE,RANDOM 134 mg/dL (74-106); SGOT/AST 34 U/L (15-37); SGPT/ALT 12 U/L (12-78)
[2016-10-31] MEDS: MORPHINE 100 MG in SODIUM CHLORIDE 98 ML IVPB SCH ×2 (02:26→16:28)
--- NOTE | 2016-10-31 09:44 | PN ---
Progress Note, Physician Chief Complaint: HOSPICE History of Present Illness: Patient came in with FUO, work up showed elevated Billirubin--> Obstructive Cholecystitis. She has been on IV abx. Her sister and half sister has agreed the patient to be terminally weaned because of poor prognosis. Patient currently DNR/DNI on hospice care. On Morphine for pain and comfort. Vitals: temp only - Current Medication List Current Medications: Active Medications Acetaminophen (Tylenol Oral Solution -) 650 mg GT Q4HPO PRN PRN Reason: FEVER OR PAIN Last Admin: 10/08/16 10:41 Dose: 650 mg Acetaminophen (Tylenol Suppository -) [address] Q6H PRN PRN Reason: FEVER OR PAIN IV Flush (Triple Lumen Flush) 4 ml IVPUSH PRN PRN PRN Reason: Protocol Last Admin: 10/29/16 17:03 Dose: 4 ml Morphine Sulfate 100 mg/ (Sodium Chloride) 100 mls @ 3 mls/hr IVPB TITR ADDISON; 3 MG/HR PRN Reason: Protocol Last Admin: 10/31/16 02:26 Dose: 8 mls/hr Scopolamine HBr (Transderm-Scop -) 1 patch TD Q72H [facility] Last Admin: 10/29/16 18:12 Dose: 1 patch - Objective Vital Signs: Vital Signs Temperature 98.6 F 10/31/16 06:00 Pulse Rate 87 10/31/16 06:00 Respiratory Rate 20 10/31/16 06:00 Blood Pressure 136/72 10/31/16 06:00 O2 Sat by Pulse Oximetry (%) 97 10/30/16 21:00 Constitutional: Yes: No Distress, Calm Cardiovascular: Yes: Regular Rate and Rhythm Respiratory: Yes: Regular Edema: No Peripheral Pulses WNL: Yes Labs: CBC, BMP 10/29/16 09:10 10/30/16 10:40 INR, PTT INR 1.46 (0.82-1.09) H 10/12/16 06:00 Problem List - Problems (1) Cerebral palsy Code(s): G80.9 - CEREBRAL PALSY, UNSPECIFIED Qualifiers: Cerebral palsy type: unspecified type Qualified Code(s): G80.9 - Cerebral palsy, unspecified (2) Chronic respiratory failure Assessment/Plan: OFF VENT ON TRACH MASK, TOLERATING WELL, MORPHINE DRIP AT 8MG/HR Code(s): J96.10 - CHRONIC RESPIRATORY FAILURE, UNSP W HYPOXIA OR HYPERCAPNIA Qualifiers: Respiratory failure complication: unspecified whether with hypoxia or hypercapnia Qualified Code(s): J96.10 - Chronic respiratory failure, unspecified whether with hypoxia or hypercapnia (3) Hospice care Assessment/Plan: ON MORPHINE DRIP AT 8 MG/HOUR, TRACH MASK, LOOKS COMFORTABLE IN BED. NAD. NO TUBE FEEDING. VITALS SIGNS CHANGED TO TEMPERATURE CHECK BID ONLY. ACETAMINOPHEN FOR FEVER OVER 100.0F. PALLIATIVE CARE SPOKE TO FAMILY (SISTER) ABOUT CALVARY. FEEDING STARTED OVER THE WEEKEND. Assessment/Plan [facility] ON THE CASE, VITALS:TEMP ONLY COMFORT CARE FEEDING STARTED PATIENT WILL GO BACK TO [place] FOR COMFORT CARE WITH FENTANYL PATCH, MORPHINE AD ATIVAN THROUGH G-TUBEFOR BREAKTHROUGH PAIN AND SEIZURE PREVENTION. TRIED REACHING HER HCP ROSE MARY, GOING TO [facility], MAILBOX FULL. PALLIATIVE CARE SPOKE TO SISTER EARLIER. HCP ROSE MARY IN CONSENT WITH THE CURRENT PLAN.
[2016-10-31] MEDS ORDERED: PT OWN MED DRAWER 7, Y5N ONE (14:03)
[2016-10-31] MEDS: SCOPOLAMINE HYDROBROMIDE 1 PATCH PATCH.TD72 TD SCH (14:30)
--- NOTE | 2016-11-01 10:07 | PN ---
Progress Note, Physician Chief Complaint: HOSPICE History of Present Illness: Patient came in with FUO, work up showed elevated Billirubin--> Obstructive Cholecystitis. She has been on IV abx. Her sister and half sister has agreed the patient to be terminally weaned because of poor prognosis. Patient currently DNR/DNI on hospice care. On Morphine for pain and comfort. Vitals: temp only - Current Medication List Current Medications: Active Medications Acetaminophen (Tylenol Oral Solution -) 650 mg GT Q4HPO PRN PRN Reason: FEVER OR PAIN Last Admin: 10/08/16 10:41 Dose: 650 mg Acetaminophen (Tylenol Suppository -) 650 mg DE Q6H PRN PRN Reason: FEVER OR PAIN IV Flush (Triple Lumen Flush) 4 ml IVPUSH PRN PRN PRN Reason: Protocol Last Admin: 10/29/16 17:03 Dose: 4 ml Morphine Sulfate 100 mg/ (Sodium Chloride) 100 mls @ 3 mls/hr IVPB TITR ADDISON; 3 MG/HR PRN Reason: Protocol Last Admin: 10/31/16 16:28 Dose: 8 mls/hr Scopolamine HBr (Transderm-Scop -) 1 patch TD Q72H [facility] Last Admin: 10/31/16 14:30 Dose: 1 patch - Objective Vital Signs: Vital Signs Temperature 97.7 F 11/01/16 07:16 Pulse Rate 73 11/01/16 07:16 Respiratory Rate 18 11/01/16 07:16 Blood Pressure 106/63 11/01/16 07:16 O2 Sat by Pulse Oximetry (%) 99 10/31/16 21:00 Constitutional: Yes: Well Nourished, No Distress, Calm Cardiovascular: Yes: Regular Rate and Rhythm Respiratory: Yes: Regular Gastrointestinal: Yes: Normal Bowel Sounds Musculoskeletal: Yes: WNL Edema: No Peripheral Pulses WNL: Yes Labs: CBC, BMP 10/29/16 09:10 10/30/16 10:40 INR, PTT INR 1.46 (0.82-1.09) H 10/12/16 06:00 Problem List - Problems (1) Cerebral palsy Code(s): G80.9 - CEREBRAL PALSY, UNSPECIFIED Qualifiers: Cerebral palsy type: unspecified type Qualified Code(s): G80.9 - Cerebral palsy, unspecified (2) Chronic respiratory failure Assessment/Plan: OFF VENT ON TRACH MASK, TOLERATING WELL, MORPHINE DRIP AT 8MG/HR Code(s): J96.10 - CHRONIC RESPIRATORY FAILURE, UNSP W HYPOXIA OR HYPERCAPNIA Qualifiers: Respiratory failure complication: unspecified whether with hypoxia or hypercapnia Qualified Code(s): J96.10 - Chronic respiratory failure, unspecified whether with hypoxia or hypercapnia (3) Hospice care Assessment/Plan: ON MORPHINE DRIP AT 8 MG/HOUR, TRACH MASK, LOOKS COMFORTABLE IN BED. NAD. NO TUBE FEEDING. VITALS SIGNS CHANGED TO TEMPERATURE CHECK BID ONLY. ACETAMINOPHEN FOR FEVER OVER 100.0F. FEEDING STARTED OVER THE WEEKEND. DECISION PENDING FOR HOSPICE CARE, AD[facility] VS NIKKI. Assessment/Plan [facility] ON THE CASE, VITALS:TEMP ONLY COMFORT CARE FEEDING STARTED DECISION PENDING NOW GLORIAARY VS CLAUDIA ON HOSPICE CARE WITH FENTANYL PATCH, MORPHINE AD ATIVAN THROUGH G-TUBE FOR BREAKTHROUGH PAIN AND SEIZURE PREVENTION.
[2016-11-02] MEDS: MORPHINE 100 MG in SODIUM CHLORIDE 98 ML IVPB SCH (01:30)
[2016-11-02] MEDS ORDERED: FENTANYL PATCH WASTE TD PRN (08:24)
[2016-11-02] MEDS ORDERED: fentaNYL 25mcg/hr PATCH.TD72 TD SCH (08:30)
[2016-11-02] MEDS: morphine SULFATE 10 MG/5 ML UNIT-DOSE CUP PO PRN ×2 (12:59→18:40)
[2016-11-02 15:31] VITALS: PULSE 84
--- NOTE | 2016-11-02 15:35 | PN ---
Progress Note, Physician Chief Complaint: HOSPICE History of Present Illness: Patient came in with FUO, work up showed elevated Billirubin--> Obstructive Cholecystitis. She has been on IV abx. Her sister and half sister has agreed the patient to be terminally weaned because of poor prognosis. Patient currently DNR/DNI on hospice care. On Morphine for pain and comfort. Vitals: temp only DISCONTINUED MORPHINE DRIP TO MORPHINE SOLUTION VIA G-TUBE. ON FENTANYL PATCH 25 MCG Q72H, SCOPOLAMINE PATCH. WILL TRANSFER TO [facility] IN AM. - Current Medication List Current Medications: Active Medications Acetaminophen (Tylenol Oral Solution -) 650 mg GT Q4HPO PRN PRN Reason: FEVER OR PAIN Last Admin: 10/08/16 10:41 Dose: 650 mg Acetaminophen (Tylenol Suppository -) 650 mg DC Q6H PRN PRN Reason: FEVER OR PAIN Fentanyl (Duragesic 25mcg Patch -) 1 patch TD Q72H [facility] Stop: 11/09/16 08:24 Last Admin: 11/02/16 10:22 Dose: 1 patch IV Flush (Triple Lumen Flush) 4 ml IVPUSH PRN PRN PRN Reason: Protocol Last Admin: 10/29/16 17:03 Dose: 4 ml Miscellaneous (Duragesic Patch Waste) 1 each TD PRN PRN PRN Reason: PAIN Morphine Sulfate (Morphine 10 Mg/5 Ml Liquid) 2.5 mg PO Q3H PRN PRN Reason: PAIN Last Admin: 11/02/16 12:59 Dose: 2.5 mg Scopolamine HBr (Transderm-Scop -) 1 patch TD Q72H [facility] Last Admin: 10/31/16 14:30 Dose: 1 patch - Objective Vital Signs: Vital Signs Temperature 97.9 F 11/02/16 15:30 Pulse Rate 84 11/02/16 15:30 Respiratory Rate 16 11/02/16 15:30 Blood Pressure 110/70 11/02/16 15:30 O2 Sat by Pulse Oximetry (%) 97 11/02/16 11:00 Constitutional: Yes: Well Nourished, No Distress, Calm Cardiovascular: Yes: Regular Rate and Rhythm Respiratory: Yes: Regular Gastrointestinal: Yes: Normal Bowel Sounds Musculoskeletal: Yes: WNL Extremities: Yes: WNL Edema: No Peripheral Pulses WNL: Yes Labs: CBC, BMP 10/29/16 09:10 10/30/16 10:40 INR, PTT INR 1.46 (0.82-1.09) H 10/12/16 06:00 Problem List - Problems (1) Cerebral palsy Code(s): G80.9 - CEREBRAL PALSY, UNSPECIFIED Qualifiers: Cerebral palsy type: unspecified type Qualified Code(s): G80.9 - Cerebral palsy, unspecified (2) Chronic respiratory failure Assessment/Plan: OFF VENT ON TRACH MASK, TOLERATING WELL, MORPHINE DRIP AT 8MG/HR Code(s): J96.10 - CHRONIC RESPIRATORY FAILURE, UNSP W HYPOXIA OR HYPERCAPNIA Qualifiers: Respiratory failure complication: unspecified whether with hypoxia or hypercapnia Qualified Code(s): J96.10 - Chronic respiratory failure, unspecified whether with hypoxia or hypercapnia (3) Hospice care Assessment/Plan: TRACH MASK, LOOKS COMFORTABLE IN BED. NAD. NO TUBE FEEDING. VITALS SIGNS CHANGED TO TEMPERATURE CHECK BID ONLY. ACETAMINOPHEN FOR FEVER OVER 100.0F. DISCONTINUED MORPHINE DRIP TO MORPHINE SOLUTION VIA G-TUBE. ON FENTANYL PATCH 25 MCG Q72H, SCOPOLAMINE PATCH. WILL TRANSFER TO [facility] IN AM. Assessment/Plan [facility] ON THE CASE, VITALS:TEMP ONLY COMFORT CARE FEEDING STARTED FENTANYL PATCH 25 MCG Q72H SCOPOLAMINE PATCH MORPHINE SOLUTION [place] G-TUBE TRANSFER TO [facility] IN AM.
--- NOTE | 2016-11-02 15:44 | DS ---
Physical Examination Vital Signs: Vital Signs Temperature 97.9 F 11/02/16 15:30 Pulse Rate 84 11/02/16 15:30 Respiratory Rate 16 11/02/16 15:30 Blood Pressure 110/70 11/02/16 15:30 O2 Sat by Pulse Oximetry (%) 97 11/02/16 11:00 Findings/Remarks: HOSPICE CARE MORPHINE SOLUTION PRN VIA G-TUBE FENTANYL PATCH SCOPOLAMINE PATCH VITALS:TEMP ONLY TYLENOL FOR FEVER OVER 100.0F ATIVAN FOR SEIZURE PRECAUTION. Constitutional: Yes: Well Nourished, No Distress, Calm Cardiovascular: Yes: Regular Rate and Rhythm Respiratory: Yes: Regular, Other (TRACH MASK) Gastrointestinal: Yes: Normal Bowel Sounds Musculoskeletal: Yes: WNL Extremities: Yes: WNL Edema: No Peripheral Pulses WNL: Yes Neurological: Yes: Alert (RESPONDS TO NAME AND TOUCH) Labs: CBC, BMP 10/29/16 09:10 10/30/16 10:40 Discharge Summary Reason For Visit: FEVER,HYPERGLYCEMIA Current Active Problems Bacteremia due to Klebsiella pneumoniae (Acute) Cholangitis (Acute) Diabetes mellitus, insulin dependent (IDDM), uncontrolled (Acute) Hospice care (Acute) Hyperglycemia (Acute) Hypotension (Acute) Jaundice (Acute) Hospital Course: PATIENT ORIGINALLY CAME IN THE HOSPITAL ON A MECHANICAL VENTILATOR WITH FUO. UPON EVALUATION SHE WAS FOUND TO HAVE CHOLECYSTITIS. SHE WAS PLACED ON IV ABX TO WHICH SHE RESPONDED WELL. UPON DISCUSSION WITH HER SISTER ROSE MARY, IT WAS DECIDED NOT TO OPT FOR A SURGERY DUE TO POOR PROGNOSIS. DECISION TO START PALLIATIVE CARE AND THEN HOSPICE WAS MADE INJUNCTION WITH HER SISTERS AGREEMENT. FROM PAST 2 WEEKS HER CAARE HAS BEEN OVERSEEN BY [facility]. PATIENT WAS PLACED ON MORPHINE DRIP AND MADE COMFORTABLE WITH NO FEEDINGS. FEEDING WERE AGAIN STARTED 3 DAYS AGO PATIENT SEEMED TO BE DOING WELL ON COMFORT CARE. DECISION TO SEND HER BACK TO [facility] WAS MADE WITH THE TEAM CONSISTING OF PALLIATIVE CARE, DR ESTRELLA, MYSELF AND SISTER ROSE MARY WHO IS THE HEALTH CARE PROXY. SHE WILL BE GOING BACK TO [facility] ON FOLLOWING MEDICATIONS: 1. FENTANYL PATCH 50 MCG Q72H 2. MORPHINE 5 MG THROUGH G-TUBE Q2HPRN FOR BREAKTHROUGH PAIN 3. SCOPOLAMINE PATCH Q72H 4. TYLENOL 650 MG SUPP Q6HPRN FOR FEVER OVER 100.0 F 5. LORAZEPAM 0.5 MG PO Q12H FOR SEIZURE PRECAUTION Condition: Stable - Instructions Diet, Activity, Other Instructions: JEVITY 1.5 AT 50 MLS/HR WITH 25 MLS/HOUR OF FREE WATER Referrals: Dillan Celaya MD [Primary Care Provider] - Disposition: [facility] - Home Medications Comprehensive Discharge Medication List: Ambulatory Orders SHE WILL BE GOING BACK TO [facility] ON FOLLOWING MEDICATIONS: 1. FENTANYL PATCH 50 MCG Q72H 2. MORPHINE 5 MG THROUGH G-TUBE Q2HPRN FOR BREAKTHROUGH PAIN 3. SCOPOLAMINE PATCH Q72H 4. TYLENOL 650 MG SUPP Q6HPRN FOR FEVER OVER 100.0 F 5. LORAZEPAM 0.5 MG PO Q12H FOR SEIZURE PRECAUTION.
[2016-11-03] MEDS: morphine SULFATE 10 MG/5 ML UNIT-DOSE CUP PO PRN (01:21)
[2016-11-03] MEDS: ACETAMINOPHEN 650 MG/20.3 ML ORAL SOLUTION (CUPS) GT PRN (02:15)
[2016-11-03 02:40] VITALS: BP 101/64; TEMP 99.9
--- NOTE | 2016-11-03 03:38 | PN ---
Progress Note (short form) - Note Progress Note: I was called to patient's bedside to pronounce Haley Carrillo has passed. No spontaneous movements were present, There was not a response to verbal or tactile stimuli. Pupils were mid-dilated and fixed. No breath sounds were appreciated over either lung field. No carotid pulses were palpable. No heart sounds were auscultator over entire precordium. Patient pronounced at at 3:30am. Family and attending physician were notified. Not candidate for organ donation. Patient was DNR/DNI. Patient was admitted for fever of unknown origin, found to have acute cholecystitis along with chronic respiratory failure. She was made DNR/DNI over hospital stay, started on morphine drip. Problem List - Problems (1) Bacteremia due to Klebsiella pneumoniae Code(s): R78.81 - BACTEREMIA (2) Cholangitis Code(s): K83.0 - CHOLANGITIS (3) Diabetes mellitus, insulin dependent (IDDM), uncontrolled Code(s): E10.65 - TYPE 1 DIABETES MELLITUS WITH HYPERGLYCEMIA Qualifiers: Diabetes mellitus complication detail: with other neurological complication (5) Hyperglycemia Code(s): R73.9 - HYPERGLYCEMIA, UNSPECIFIED (6) Hypotension Code(s): I95.9 - HYPOTENSION, UNSPECIFIED (7) Jaundice Code(s): R17 - UNSPECIFIED JAUNDICE (8) Anemia Code(s): D64.9 - ANEMIA, UNSPECIFIED
== END 2016-11-03 06:36 | disposition expired | DRG 870 ==
LOC: JER 05:40 → JERBED 09:14 → J5S 15:35 → JICU 10-11 22:27 → J4S 10-13 15:39 → J8W 10-15 14:56
PROVIDERS: ADMIT Family Medicine; ATTEND Family Medicine
PROC: 5A1955Z Respiratory Ventilation, Greater than 96 Consecutive Hours (ICD-10-PCS; principal; 2016-09-30)
PROC: 30233N1 Transfusion of Nonautologous Red Blood Cells into Peripheral Vein, Percutaneous Approach (ICD-10-PCS; 2016-10-04)
PROC: 05HN33Z Insertion of Infusion Device into Left Internal Jugular Vein, Percutaneous Approach (ICD-10-PCS; 2016-10-08)
DX: A41.9 Sepsis, unspecified organism (principal); R53.2 Functional quadriplegia; K83.1 Obstruction of bile duct; J96.10 Chronic respiratory failure, unspecified whether with hypoxia or hypercapnia; K83.0 Cholangitis; Z99.11 Dependence on respirator [ventilator] status; F72 Severe intellectual disabilities; R50.9 Fever, unspecified; E10.65 Type 1 diabetes mellitus with hyperglycemia; D64.9 Anemia, unspecified; I95.9 Hypotension, unspecified; G80.9 Cerebral palsy, unspecified; E03.9 Hypothyroidism, unspecified; E86.0 Dehydration; Z93.0 Tracheostomy status
CPT/HCPCS: 36415; 36430; 36511; 36600; 71010-TC; 74000-TC; 76705-TC; 80053; 80076; 81003; 81015; 82150; 82550; 82803; 83036; 83605; 83690; 83735; 84100; 84484; 84703; 85025; 85610; 85651; 85730; 86140; 86704; 86706; 86803; 86850; 86900; 86901; 86922; 87040; 87070; 87077; 87086; 87186; 87205; 87340; 87389; 93005; 93010; 94002; 94640; 99285-25; J1644; J3480; P9038; P9058